=== PATIENT | female | born 1965 | race Two or more races ===

== ENCOUNTER 2020-05-30 12:27 | Outpatient (REF) | payer OTHER, SELFPAY ==
--- NOTE | 2020-05-30 | MM_ITS ---
EXAMINATION: MM SCREENING DIGITAL BREAST TOMOSYNTHESIS, BILATERAL CLINICAL INFORMATION: Screening. Asymptomatic. Status post right breast biopsy 2017 (focal ADH), subsequent excisional biopsy 07/21/2018 (flat epithelial atypia, not seen at examined margins). Exam today performed as a routine there are 2 screening. The lifetime risk of breast cancer based on the Tyrer-Cuzick Model is 6%. COMPARISON: Mammography: 07/21/2018 (needle localization), 04/27/2018, 04/16/2018, 09/16/2017, 10/17/2016 TECHNIQUE: Digital breast tomosynthesis is performed in both the craniocaudal and mediolateral oblique views along with computer-aided detection (CAD). Synthesized 2D images are generated from the tomosynthesis. FINDINGS: There are scattered areas of fibroglandular density (ACR BI-RADS breast composition Category b). There is minor scarring right breast upper outer quadrant consistent with the prior lumpectomy. Neither breast shows interval mass or developing density or suspicious architectural changes. No abnormal calcifications. The axilla are unremarkable. No significant changes. MM/MM tomosynthesis screening BI IMPRESSION: No mammographic evidence of malignancy. Benign postoperative changes right breast. ASSESSMENT: BI-RADS 2: Benign RECOMMENDATION: Routine annual mammography screening. This patient's information was entered into a reminder system with a target due date for their next mammogram.
== END 2020-05-30 12:28 | disposition home or self-care (01) ==
LOC: HO.MAMMO 12:27
PROVIDERS: PCP Internal Medicine; Visit Provider Internal Medicine
DX: Z12.31 Encounter for screening mammogram for malignant neoplasm of breast (principal)
CPT/HCPCS: 77063; 77067

== ENCOUNTER 2020-07-07 09:23 | Outpatient (REF) | payer OTHER, SELFPAY ==
[2020-07-07 09:53] LABS: Estimated Average Glucose 148 mg/dL; Hemoglobin A1c % 6.8 %
[2020-07-07 10:06] LABS: Alanine Aminotransferase 39 U/L (0-31); Albumin Level 4.2 g/dL (3.5-5.0); Alkaline Phosphatase 128 U/L (39-117); Anion Gap 17 (12-20); Aspartate Amino Transferase 25 U/L (5-31); Bilirubin Total 0.3 mg/dL (0.0-1.0); Blood Urea Nitrogen 18 mg/dL (9-16); Calcium 10.4 mg/dL (8.4-10.2); Carbon Dioxide 25 mmol/L (22-29); Chloride 100 mmol/L (96-108); Cholesterol 261 mg/dL; Estimated Glomerular Filt Rate > 60; Glucose Random 168 mg/dL (60-115); HDL Cholesterol 42 mg/dL; Phosphorus 3.6 mg/dL (2.7-4.5); Potassium 4.5 mmol/L (3.3-5.1); Sodium 137 mmol/L (135-145); Triglycerides 695 mg/dL
[2020-07-07 10:26] LABS: Vitamin D 25-OH Total 11.1 ng/mL (>30)
[2020-07-10 18:37] LABS: Calcium (PTHI) 10.6 mg/dL (8.6-10.4); PTHI 153 pg/mL (14-64)
== END 2020-07-07 09:24 | disposition home or self-care (01) ==
LOC: HO.LNP 09:23
PROVIDERS: Visit Provider Internal Medicine
DX: E03.8 Other specified hypothyroidism (principal); E11.9 Type 2 diabetes mellitus without complications; E78.2 Mixed hyperlipidemia; E83.52 Hypercalcemia
CPT/HCPCS: 80053; 80061; 82306; 83036; 83970; 84100

== ENCOUNTER 2020-11-09 07:32 | Outpatient (REF) | payer OTHER, SELFPAY ==
[2020-11-09 08:21] LABS: MANUAL DIFF FLAG NO
[2020-11-09 08:29] LABS: Basophils Percent Auto 0.6 % (0-2); Eosinophils Absolute Auto 0.2 X10*3/uL (0.0-0.4); Eosinophils Percent Auto 3.5 % (0-4); Imm Gran Abs Auto 0.02 X10*3/uL (0.00-0.03); Imm Gran Pct Auto 0.3 % (0.0-0.4); Lymphocytes Absolute Auto 2.8 X10*3/uL (1.2-4.9); Lymphocytes Percent Auto 42.7 % (20-40); Mean Corpuscular HGB Conc 33.3 g/dl (31.0-35.0); Mean Corpuscular Hemoglobin 29.4 pg (27.0-33.0); Mean Corpuscular Volume 88.1 fL (80-98); Mean Platelet Volume 11.9 fL (9.4-12.3); Monocytes Absolute Auto 0.5 X10*3/uL (0.1-1.2); Monocytes Percent Auto 8.1 % (2-11); Neutrophils Absolute Auto 2.9 X10*3/uL (2.0-8.3); Neutrophils Percent Auto 44.8 % (45-73); Platelet Count 250 X10*3/uL (160-400); Red Blood Count 4.77 X10*6/uL (4.20-5.50); Red Cell Distribution Width 12.8 % (11.0-16.0); White Blood Count 6.6 X10*3/uL (4.8-10.8)
[2020-11-09 08:34] LABS: Estimated Average Glucose 143 mg/dL; Hemoglobin A1c % 6.6 %
[2020-11-09 08:47] LABS: Alanine Aminotransferase 43 U/L (0-31); Alkaline Phosphatase 100 U/L (39-117); Anion Gap 12 (12-20); Aspartate Amino Transferase 29 U/L (5-31); Bilirubin Total 0.4 mg/dL (0.0-1.0); Blood Urea Nitrogen 18 mg/dL (9-16); Calcium 10.5 mg/dL (8.4-10.2); Carbon Dioxide 24 mmol/L (22-29); Chloride 104 mmol/L (96-108); Cholesterol 176 mg/dL; Estimated Glomerular Filt Rate > 60; Glucose Random 148 mg/dL (60-115); HDL Cholesterol 43 mg/dL; LDL Cholesterol Calculated 104 mg/dl; Potassium 4.1 mmol/L (3.3-5.1); Sodium 136 mmol/L (135-145); Total Protein 6.5 g/dL (6.5-8.0); Triglycerides 149 mg/dL
[2020-11-09 09:07] LABS: Thyroid Stimulating Hormone 1.46 uIU/mL (0.32-4.0)
[2020-11-09 09:12] LABS: Creatinine Urine 101.09 mg/dL; Microalbumin Urine < 5.0 mg/L
== END 2020-11-09 07:33 | disposition home or self-care (01) ==
LOC: HO.LAB 07:32
PROVIDERS: PCP Internal Medicine; Visit Provider Internal Medicine
DX: D50.9 Iron deficiency anemia, unspecified (principal); E03.9 Hypothyroidism, unspecified; E11.9 Type 2 diabetes mellitus without complications; E55.9 Vitamin D deficiency, unspecified; E78.1 Pure hyperglyceridemia; I10 Essential (primary) hypertension
CPT/HCPCS: 36415; 80053; 80061; 82043; 83036; 84443; 85025

== ENCOUNTER 2021-04-08 13:24 | Emergency (ER) | payer OTHER, SELFPAY ==
--- NOTE | ~2021-04-08 | XR_ITS ---
EXAMINATION: CHEST 2 VIEWS CLINICAL INFORMATION: cough . COMPARISON: 07/10/2018 chest x-ray. TECHNIQUE: PA and lateral views of the chest obtained. FINDINGS: The lungs are mildly hypoexpanded. There is patchy bilateral airspace disease seen more set the lung bases. This airspace disease is new from the prior study. Infectious etiology would be suspected. No significant effusion, edema, or pneumothorax. Cardiac and mediastinal silhouettes within normal limits for size. No acute bony abnormality. Degenerative changes in the spine. XR/XR chest 2V IMPRESSION: Patchy bilateral airspace disease new from the prior study. Infectious etiology suspected.
[2021-04-08 14:12] VITALS: BP 144/92; PULSE 87; RESP 16; TEMP 36; O2SAT 97; BMI 33.0
--- NOTE | 2021-04-08 14:44 | ED.GENADULT ---
HPI - General Adult General Chief complaint: General Medical Stated complaint: swollen hands and legs Time Seen by Provider: 04/08/21 14:21 Source: patient Mode of arrival: ambulatory Limitations: no limitations History of Present Illness HPI narrative: patient with swollen hands and feet. She was started on prednisone a few days ago for shortness of breath. No history of arthritis. Patient states that she has been on prednisone before without swelling. patient has DM, HTN, and high cholesterol. Patient was seen in urgent care. Sugars have been running at 130. Onset (ago): day(s) Severity: moderate Quality: other (swelling) Pain Consistency: constant Associated symptoms: shortness of breath Related Data Previous Rx's Medication Instructions Recorded levofloxacin 500 mg tablet 500 mg PO DAILY #7 tab 04/08/21 Allergies Allergy/AdvReac Type Severity Reaction Status Date / Time acetaminophen [Percocet] Allergy Unknown nausea and Verified 07/29/18 00:00 vomiting oxycodone [Percocet] Allergy Unknown nausea and Verified 07/29/18 00:00 vomiting Review of Systems Neurologic: Denies Sensory deficit (Neuro) [facility] Past Medical History Medical History Diabetes HTN (hypertension) Hypothyroid Social History Social History Alcohol intake: never Patient Tobacco Use Status: Never used Tobacco Smoked in Last 30 Days: No Use of substances other than those prescribed or required for medical reasons: No Advance Directives: No Advance Directives Information Provided: Yes Physical Exam Vital Signs: Vital Signs: Last Vital Signs Temp 98.6 F 04/08/21 17:17 Pulse 74 04/08/21 17:17 Resp 16 04/08/21 17:17 BP 120/7 L 04/08/21 17:17 Pulse Ox 96 04/08/21 17:17 Body Mass Index 33.0 Const: Other: well developed with cough. General: healthy appearing Nutritional Appearance: obese Orientation/consciousness: oriented to person and patient oriented x3 Limitations: no limitations HENMT: Head: Yes normal to inspection Ears: external ears normal General nose exam: Normal external nose present Mouth: Normal oral and palatal mucosa present and oropharynx normal Throat: Yes posterior oropharynx normal Eyes: General: appearance normal, both eyes and all related structures Neck: Other: supple Neck: Yes normal visual inspection Chest: Chest palpation & inspection: normal inspection of the chest Resp: Auscultation: clear to auscultation bilaterally Cardio: Jugular venous distension: no JVD Rate: regular rate Rhythm: regular rhythm Heart sounds: S1 normal heart sound present and S2 normal heart sound present GI: Inspection: Yes normal to inspection Palpation (GI): Soft to palpation, nontender and No hepatosplenomegaly present Auscultation: normal bowel sounds : General: Yes no CVA tenderness Back/Spine/Pelvis: Back: no CVA tenderness Skin: General skin exam: no rashes or lesions noted Neuro: General: oriented to person and patient oriented x3 Cranial nerves: Yes CN's II-XII intact bilaterally Motor exam (neuro): 5/5 motor strength present throughout Sensory Exam: No Sensory deficit (Neuro) Extrem: Other: Edema to hands not legs Psych: Appearance: grossly normal Course Reevaluation(s) Reevaluation #1: patient with patchy infiltrates will send COVID Time: 15:48 Reevaluation #2: COVID negative times 2. Will treat for atypical pneumonia with levaquin Time: 17:32 Medical Decision Making Lab Data Result diagrams: 04/08/21 15:30 04/08/21 15:30 Labs: Lab Results 04/08/21 04/08/21 04/08/21 Range/Units 15:30 15:30 15:30 WBC 8.5 (4.8-10.8) X10*3/uL RBC 5.00 (4.20-5.50) X10*6/uL Hgb 15.0 (12.0-16.0) g/dl Hct 43.5 (37.0-47.0) % MCV 87.0 (80.0-98.0) fL MCH 30.0 (27.0-33.0) pg MCHC 34.5 (31.0-35.0) g/dl RDW 12.9 (11.0-16.0) % Plt Count 256 (160-400) X10*3/uL MPV 10.8 (9.4-12.3) fL Immature Gran % (Auto) 0.6 H (0.0-0.4) % Neut % (Auto) 64.0 (45-73) % Lymph % (Auto) 24.1 (20-40) % [place] % (Auto) 7.1 (2-11) % Eos % (Auto) 3.5 (0-4) % Baso % (Auto) 0.7 (0-2) % Lymph # (Auto) 2.0 (1.2-4.9) X10*3/uL [place] # (Auto) 0.6 (0.1-1.2) X10*3/uL Eos # (Auto) 0.3 (0.0-0.4) X10*3/uL Baso # (Auto) 0.1 (0.0-0.2) X10*3/uL Abs Immat Gran (auto) 0.05 H (0.00-0.03) X10*3/uL Absolute Neuts (auto) 5.4 (2.0-8.3) x10*3/uL Absolute Nucleated RBC 0.000 (0.0-0.012) X10*3/uL Nucleated RBC % (auto) 0.0 (0.0-0.2) /100WBC ESR 11 (0-20) MM/HR Sodium 134 L (135-145) mmol/L Potassium 4.0 (3.3-5.1) mmol/L Chloride 103 (96-108) mmol/L Carbon Dioxide 23 (22-29) mmol/L Anion Gap 12 (12-20) BUN 12 (9-16) mg/dL Creatinine 0.69 (0.5-1.4) mg/dL Estim Creat Clear Calc 88.9 Estimated GFR > 60 Random Glucose 120 H (60-115) mg/dL Calcium 9.9 (8.4-10.2) mg/dL C-Reactive Protein 1.33 H (< or = 0.50) mg/dL Influenza Type A (PCR) (Negative) Influenza Type B (PCR) (Negative) RSV RNA Qual (PCR) (Negative) SARS-CoV-2 RNA (RT-PCR) (Negative) 04/08/21 Range/Units 16:37 WBC (4.8-10.8) X10*3/uL RBC (4.20-5.50) X10*6/uL Hgb (12.0-16.0) g/dl Hct (37.0-47.0) % MCV (80.0-98.0) fL MCH (27.0-33.0) pg MCHC (31.0-35.0) g/dl RDW (11.0-16.0) % Plt Count (160-400) X10*3/uL MPV (9.4-12.3) fL Immature Gran % (Auto) (0.0-0.4) % Neut % (Auto) (45-73) % Lymph % (Auto) (20-40) % [place] % (Auto) (2-11) % Eos % (Auto) (0-4) % Baso % (Auto) (0-2) % Lymph # (Auto) (1.2-4.9) X10*3/uL [place] # (Auto) (0.1-1.2) X10*3/uL Eos # (Auto) (0.0-0.4) X10*3/uL Baso # (Auto) (0.0-0.2) X10*3/uL Abs Immat Gran (auto) (0.00-0.03) X10*3/uL Absolute Neuts (auto) (2.0-8.3) x10*3/uL Absolute Nucleated RBC (0.0-0.012) X10*3/uL Nucleated RBC % (auto) (0.0-0.2) /100WBC ESR (0-20) MM/HR Sodium (135-145) mmol/L Potassium (3.3-5.1) mmol/L Chloride (96-108) mmol/L Carbon Dioxide (22-29) mmol/L Anion Gap (12-20) BUN (9-16) mg/dL Creatinine (0.5-1.4) mg/dL Estim Creat Clear Calc Estimated GFR Random Glucose (60-115) mg/dL Calcium (8.4-10.2) mg/dL C-Reactive Protein (< or = 0.50) mg/dL Influenza Type A (PCR) NEGATIVE (Negative) Influenza Type B (PCR) NEGATIVE (Negative) RSV RNA Qual (PCR) NEGATIVE (Negative) SARS-CoV-2 RNA (RT-PCR) NEGATIVE (Negative) Discharge Plan Discharge Clinical Impression: Atypical pneumonia Patient Disposition: Home, Self-Care Instructions: Pneumonia (ED) Prescriptions: New levofloxacin 500 mg tablet 500 mg PO DAILY Qty: 7 RF: 0 Referrals: Jocelyn Rivera MD [Primary Care Provider] - 1 week
[2021-04-08 15:35] VITALS: BP 121/86; PULSE 82; RESP 16; TEMP 37.2; O2SAT 95
[2021-04-08 15:37] LABS: Basophils Absolute Auto 0.1 X10*3/uL (0.0-0.2); Basophils Percent Auto 0.7 % (0-2); Eosinophils Absolute Auto 0.3 X10*3/uL (0.0-0.4); Eosinophils Percent Auto 3.5 % (0-4); Hematocrit 43.5 % (37.0-47.0); Imm Gran Abs Auto 0.05 X10*3/uL (0.00-0.03); Imm Gran Pct Auto 0.6 % (0.0-0.4); Lymphocytes Percent Auto 24.1 % (20-40); MANUAL DIFF FLAG NO; Mean Corpuscular HGB Conc 34.5 g/dl (31.0-35.0); Mean Platelet Volume 10.8 fL (9.4-12.3); Monocytes Absolute Auto 0.6 X10*3/uL (0.1-1.2); Monocytes Percent Auto 7.1 % (2-11); Neutrophils Absolute Auto 5.4 x10*3/uL (2.0-8.3); Platelet Count 256 X10*3/uL (160-400); Red Cell Distribution Width 12.9 % (11.0-16.0); White Blood Count 8.5 X10*3/uL (4.8-10.8)
[2021-04-08 15:52] LABS: Anion Gap 12 (12-20); Blood Urea Nitrogen 12 mg/dL (9-16); C Reactive Protein 1.33 mg/dL (< or = 0.50); Calcium 9.9 mg/dL (8.4-10.2); Carbon Dioxide 23 mmol/L (22-29); Chloride 103 mmol/L (96-108); Creatinine Clr Calc Pharmacy 88.9; Estimated Glomerular Filt Rate > 60; Glucose Random 120 mg/dL (60-115); Sodium 134 mmol/L (135-145)
[2021-04-08 16:53] LABS: Erythrocyte Sedimentation Rate 11 MM/HR (0-20)
[2021-04-08 17:17] VITALS: BP 120/7; PULSE 74; RESP 16; TEMP 37; O2SAT 96
[2021-04-08 17:20] LABS: Influenza A PCR NEGATIVE (Negative); Influenza B PCR NEGATIVE (Negative); Resp Syncy Virus RNA Qual PCR NEGATIVE (Negative); SARS COV2 PCR INHOUSE NEGATIVE (Negative)
[2021-04-08] MEDS: levoFLOXacin 500 MG TABLET PO (17:42)
== END 2021-04-08 17:47 | disposition home or self-care (01) ==
PROVIDERS: Emergency Provider Emergency Medicine; PCP Internal Medicine
DX: J18.9 Pneumonia, unspecified organism (principal); E11.9 Type 2 diabetes mellitus without complications; I10 Essential (primary) hypertension; E78.5 Hyperlipidemia, unspecified; Z20.822 Contact with and (suspected) exposure to COVID-19
CPT/HCPCS: 0241U; 36415; 71046; 80048; 85025; 85652; 86140; 99283; 99284

== ENCOUNTER 2021-04-24 14:06 | Outpatient (REF) | payer OTHER, SELFPAY ==
--- NOTE | ~2021-04-24 | XR_ITS ---
EXAMINATION: XR CHEST CLINICAL INFORMATION: Follow-up pneumonia COMPARISON: Previous chest x-rays most recent 04/08/2021 TECHNIQUE: 2 views of the chest were obtained. FINDINGS: The cardiac and mediastinal contours are normal. The lungs volumes are low. There is still patchy bilateral airspace disease, left greater than right, probably representing pneumonia. This is similar to 04/08/2021 exam. There is no pleural effusion or pneumothorax. There are degenerative changes of the spine. XR/XR chest 2V IMPRESSION: No change in bilateral airspace disease from most recent exam 04/08/2021, left greater than right, probably representing pneumonia.
[2021-04-24 14:34] LABS: MANUAL DIFF FLAG NO
[2021-04-24 15:16] LABS: Basophils Absolute Auto 0.1 X10*3/uL (0.0-0.2); Basophils Percent Auto 0.6 % (0-2); Eosinophils Absolute Auto 0.4 X10*3/uL (0.0-0.4); Eosinophils Percent Auto 5.5 % (0-4); Hematocrit 39.9 % (37.0-47.0); Hemoglobin 13.8 g/dl (12.0-16.0); Imm Gran Abs Auto 0.03 X10*3/uL (0.00-0.03); Imm Gran Pct Auto 0.4 % (0.0-0.4); Lymphocytes Absolute Auto 2.2 X10*3/uL (1.2-4.9); Lymphocytes Percent Auto 28.3 % (20-40); Mean Corpuscular HGB Conc 34.6 g/dl (31.0-35.0); Mean Corpuscular Hemoglobin 29.4 pg (27.0-33.0); Mean Corpuscular Volume 85.1 fL (80.0-98.0); Mean Platelet Volume 11.8 fL (9.4-12.3); Monocytes Absolute Auto 0.8 X10*3/uL (0.1-1.2); Monocytes Percent Auto 9.6 % (2-11); Neutrophils Absolute Auto 4.4 x10*3/uL (2.0-8.3); Neutrophils Percent Auto 55.6 % (45-73); Platelet Count 276 X10*3/uL (160-400); Red Blood Count 4.69 X10*6/uL (4.20-5.50); Red Cell Distribution Width 12.7 % (11.0-16.0); White Blood Count 7.8 X10*3/uL (4.8-10.8)
[2021-04-24 15:28] LABS: Estimated Average Glucose 146 mg/dL; Hemoglobin A1c % 6.7 %
[2021-04-24 15:42] LABS: Alanine Aminotransferase 23 U/L (0-31); Albumin Level 3.9 g/dL (3.5-5.0); Alkaline Phosphatase 103 U/L (39-117); Anion Gap 14 (12-20); Aspartate Amino Transferase 22 U/L (5-31); Bilirubin Total 0.2 mg/dL (0.0-1.0); Blood Urea Nitrogen 16 mg/dL (9-16); Calcium 10.7 mg/dL (8.4-10.2); Carbon Dioxide 24 mmol/L (22-29); Chloride 103 mmol/L (96-108); Cholesterol 292 mg/dL; Estimated Glomerular Filt Rate > 60; Glucose Random 100 mg/dL (60-115); HDL Cholesterol 38 mg/dL; Potassium 4.5 mmol/L (3.3-5.1); Sodium 136 mmol/L (135-145); Total Protein 6.7 g/dL (6.5-8.0); Triglycerides 626 mg/dL
== END 2021-04-24 14:07 | disposition home or self-care (01) ==
LOC: HO.LAB 14:06
PROVIDERS: PCP Internal Medicine; Visit Provider Internal Medicine
DX: Z00.00 Encounter for general adult medical examination without abnormal findings (principal); J18.9 Pneumonia, unspecified organism; J45.909 Unspecified asthma, uncomplicated; E78.00 Pure hypercholesterolemia, unspecified; E11.9 Type 2 diabetes mellitus without complications; E03.9 Hypothyroidism, unspecified; D50.8 Other iron deficiency anemias
CPT/HCPCS: 36415; 71046; 80053; 80061; 83036; 85025

== ENCOUNTER 2021-05-24 08:26 | Outpatient (REF) | payer OTHER, SELFPAY ==
--- NOTE | 2021-05-24 08:29 | EMG_ITS ---
Bilateral median and ulnar motor and sensory studies were performed. Bilateral radial sensory studies were performed and paraspinal muscles were tested. IMPRESSION: 1. Moderately severe bilateral median neuropathy across carpal tunnel. 2. Mild bilateral ulnar neuropathy across cubital tunnel. MD ED Momin/BRET / [id number]
== END 2021-05-24 08:27 | disposition home or self-care (01) ==
LOC: HO.NEURO 08:26
PROVIDERS: Visit Provider Internal Medicine
DX: G56.13 Other lesions of median nerve, bilateral upper limbs (principal); G56.23 Lesion of ulnar nerve, bilateral upper limbs
CPT/HCPCS: 95886; 95911

== ENCOUNTER 2021-05-24 09:06 | Inpatient (IN) | payer OTHER, SELFPAY ==
--- NOTE | ~2021-05-24 | XR_ITS ---
EXAMINATION: XR CHEST CLINICAL INFORMATION: Shortness of breath, cough, recent airspace disease. COMPARISON: Chest radiographs 04/24/2021, 04/08/2021, 07/10/2018 TECHNIQUE: 2 views of the chest were obtained. FINDINGS: There are bilateral streaky airspace opacities and subtle groundglass attenuation mid and lower zones similar to recent studies 04/24/2021 and 04/08/2021. No interval confluent airspace consolidation or effusion. Lung apices are clear. The heart is normal in size. The vascularity is normal. No acute bony abnormality XR/XR chest 2V IMPRESSION: Bilateral streaky and subtle groundglass airspace opacities mid and lower zones similar to recent chest radiographs 04/24/2021 and 04/08/2021. No interval fluid airspace consolidation or effusion.
--- NOTE | ~2021-05-24 | XR_ITS ---
EXAMINATION: XR CHEST CLINICAL INFORMATION: Hypoxia COMPARISON: May 24, 2021 TECHNIQUE: 2 views of the chest were obtained. FINDINGS: There is no significant change in bilateral regions of patchy lung disease. Heart normal size. No evidence of pulmonary edema. No pneumothorax or pleural effusion. XR/XR chest 2V IMPRESSION: Stable bilateral regions of patchy parenchymal disease.
--- NOTE | ~2021-05-24 | CT_ITS ---
EXAMINATION: CT ANGIOGRAM OF THE CHEST WITH AND WITHOUT CONTRAST (CT PULMONARY ANGIOGRAM FOR PE) CLINICAL INFORMATION: Reason for Exam SOB, severe cough, pre-syncope COMPARISON: Chest radiographs 05/24/2021, 04/24/2021, 04/08/2021, 07/10/2018. TECHNIQUE: Prior to contrast administration, noncontrast localization images were obtained. Subsequently, multidetector volumetric imaging was performed from the thoracic inlet to below the diaphragms following the administration of 65 mL Omnipaque 350 intravenous contrast. Sagittal, coronal, and MIP oblique sagittal reformatted images were obtained on the CT workstation, uploaded to PACS, and reviewed. This CT examination was performed using dose optimization techniques as appropriate, variously including the following: *Automated exposure control *Adjustment of mA and/or kV according to patient size (this includes techniques or standardized protocols for targeted exams where dose is matched to indication/reason for exam; i.e. extremities or head) *Use of iterative reconstruction technique Total exam dose-length product 378 mGy-cm FINDINGS: QUALITY OF STUDY/CONTRAST BOLUS: Satisfactory. PULMONARY ARTERIES: No central or segmental pulmonary emboli. THORACIC AORTA: No aneurysm or dissection. LUNG: The central airways are clear. There is no endobronchial lesion or bronchiectasis. There is accentuated peripheral interstitial markings greater mid and lower zones with associated scattered geographic groundglass opacities predominantly subpleural peripheral. There is no lobar segmental airspace consolidation or mass. There is some small confluent opacity central left upper lobe and linear scarring or disc atelectasis anterior lateral right upper lobe. PLEURA: No pleural effusion or pneumothorax. MEDIASTINUM: Normal heart size. No pericardial effusion. No evidence of septal bowing or right heart strain. No bulky mediastinal or hilar adenopathy. There is a right subcarinal node measuring 0.8 cm and a prevascular left mediastinal node 0.5 cm. CHEST WALL/AXILLA: No axillary or internal mammary lymphadenopathy. OSSEOUS STRUCTURES: No acute or suspicious osseous abnormality. UPPER ABDOMEN: Unremarkable. No reflux of contrast into the hepatic veins to suggest elevated right heart pressures. CT/CT angio chest PE protocol IMPRESSION: 1. No pulmonary embolism. No thoracic aortic dissection. 2. Accentuated peripheral interstitial markings greater mid and lower zones with associated scattered nonspecific geographic groundglass opacities, greatest subpleural peripheral regions. Differential considerations include infectious inflammatory including atypical/viral pneumonia. 3. No pneumothorax, pleural thickening, or effusion. VTE: negative
[2021-05-24 09:15] VITALS: BP 145/79; PULSE 83; RESP 19; TEMP 36.6; O2SAT 95; BMI 32.1
--- NOTE | 2021-05-24 09:28 | ECG_ITS ---
Test Reason : UPPER RESPIRATORY Blood Pressure : / mmHG Vent. Rate : 077 BPM Atrial Rate : 077 BPM P-R Int : 144 ms QRS Dur : 090 ms QT Int : 378 ms P-R-T Axes : 039 -04 027 degrees QTc Int : 427 ms Normal sinus rhythm Minimal voltage criteria for LVH, may be normal variant ( R in aVL ) Abnormal ECG When compared with ECG of 05-JUN-2018 08:36, No significant changes seen Referred By: Rita Connelly Electronically Signed By:JUSTIN WILEY
--- NOTE | 2021-05-24 09:36 | ED.SOB ---
HPI - SOB/Dyspnea General Chief Complaint: Upper Respiratory Symptoms Stated Complaint: diff breathing SOB Time Seen by Provider: 05/24/21 09:28 Source: patient Mode of arrival: ambulatory Limitations: no limitations History of Present Illness HPI Narrative: 55 y/o female with history of diabetes, HTN, HLD who presents to the ER with ongoing shortness of breath and coughing episodes since March. She has been seen in multiple urgent care offices as well as the emergency department for this. She was treated with 3 courses of prednisone, Tessalon and antibiotics with no improvement. She reports ongoing shortness of breath with exertion as well as coughing fits that are so severe it causes her to vomit and feel like she is going to pass out. She has no associated chest pain or fevers. She is a nonsmoker with no history of asthma or COPD. She reports she gets ?winter asthma? and has had history of bronchitis in the past but never this bad. She also reports that back in April she was having significant joint swelling in her hands and knees. No real improvement with steroids. She is seeing a utility specialist for this but does not know the results of her workup. MD elicited complaint: shortness of breath and cough Onset (ago): month(s) Context: occurred during exertion Timing: intermittent Severity: severe Exacerbating factors: exertion and coughing Relieving factors: rest and other (Improves after vomiting episode) Associated symptoms: pain with inspiration Treatment prior to arrival: none Related Data Home oxygen amount: none Home Medications Medication Instructions Recorded Confirmed albuterol sulfate 90 mcg/actuation 2 inh INHALATION Q4H PRN 05/24/21 05/24/21 breath activated powder inhaler atorvastatin 40 mg tablet 1 tab PO BEDTIME 05/24/21 05/24/21 budesonide-formoterol HFA 160 1 puff PO BID 05/24/21 05/24/21 mcg-4.5 mcg/actuation aerosol inhaler (Symbicort) cholecalciferol (vitamin D3) 1,250 1 cap PO VENEGAS 05/24/21 05/24/21 mcg (50,000 unit) capsule cyanocobalamin (vitamin B-12) 1,000 mcg SUBLINGUAL DAILY 05/24/21 05/24/21 1,000 mcg sublingual lozenge empagliflozin 25 mg tablet 1 tab PO DAILY 05/24/21 05/24/21 (Jardiance) fenofibrate 160 mg tablet 1 tab PO DAILY 05/24/21 05/24/21 levothyroxine 50 mcg tablet 50 mcg PO DAILY@0600 05/24/21 05/24/21 metformin 1,000 mg tablet 1 tab PO BID 05/24/21 05/24/21 olmesartan 40 1 tab PO DAILY 05/24/21 05/24/21 mg-hydrochlorothiazide 25 mg tablet Allergies Allergy/AdvReac Type Severity Reaction Status Date / Time acetaminophen [Percocet] Allergy Unknown nausea and Verified 07/29/18 00:00 vomiting oxycodone [Percocet] Allergy Unknown nausea and Verified 07/29/18 00:00 vomiting Review of Systems Review of Systems: Constitutional: No Fever, No Chills ENT/Mouth: No sore throat, No Rhinorrhea, No Swallowing Difficulty Eyes: No Eye Pain, No Swelling, No Redness Cardiovascular: + Chest Pain, + SOB, No Orthopnea, No Edema Respiratory: + Cough, No Sputum, No Wheezing,+ dyspnea Gastrointestinal: No Nausea, + Vomiting, No Diarrhea, No abdominal Pain Genitourinary: No Dysuria, No Urinary Frequency, No Hematuria Musculoskeletal: No joint pain, No Myalgias Skin: No Skin Lesions, No rash Neuro: No Weakness, No Numbness, + Dizziness, No Headache Psych: + Anxiety/Panic, No Depression Heme/Lymph: No Bruising, No Lymphadenopathy Endocrine: No Polyuria, No Polydipsia [facility] Past Medical History Medical History Diabetes HTN (hypertension) Hypothyroid Social History Social History Alcohol intake: never Patient Tobacco Use Status: Never used Tobacco Advance Directives: No Advance Directives Information Provided: No Patient : No Physical Exam Vital Signs: Vital Signs: Last Vital Signs Temp 98.7 F 05/24/21 10:05 Pulse 73 05/24/21 10:05 Resp 16 05/24/21 10:05 BP 123/84 05/24/21 10:05 Pulse Ox 89 L 05/24/21 12:54 BMI result Body Mass Index 32.1 Appearance: Alert. Oriented X3. No acute distress. Eyes: Pupils equal, round and reactive to light. ENT: Pharynx normal. Neck: Normal inspection. Neck supple. CVS: Normal heart rate and rhythm. Pulses normal. Respiratory: No respiratory distress. Breath sounds difficult to assess with coughing episode with every deep inspiration. Inspiratory breath sounds are normal with inability to assess extra [place] breath sounds due to coughing. Cough is dry Abdomen: Soft and nontender. +BS x4 Skin: Skin warm and dry. Normal skin color. Normal skin turgor. No rashes. Extremities: No lower extremity edema. No calf tenderness Neuro: Oriented X 3. No motor deficit. No sensory deficit. Course Course Course Narrative: 55-year-old female presenting with ongoing shortness of breath and coughing episodes since March. She has had 2 previous abnormal chest x-rays showing bilateral streaky and subtle ground-glass opacities in the mid and lower lung zones back in April. Chest x-ray findings today are similar. She is not hypoxic or in any respiratory distress however she does have a significant dry cough that caused her be very short of breath at the time. She reports feelings presyncopal when she is coughing. Concern for possible PE, chest x-ray findings are concerning for possible pneumonitis. Will get CTA to further evaluate. Reevaluation(s) Reevaluation #1: Lab workup shows no leukocytosis. CBC is normal. Chemistry showing a calcium of 11.2. CRP very mildly elevated 1.07. Viral PCR is negative. Saturations remain 95 98% on room air at rest. Patient was ambulated around the emergency department and she dropped her oxygen saturations to 89% during most of the walk with a dip of as low as 84-85% but quickly recovered. CTA is showing no PE - extension weighted peripheral interstitial markings greater mid and lower zones with associated scatteed nonspecific geographic gone glass opacities greatest subpleural peripheral regions. Differential considerations include infectious inflammatory including atypical/viral pneumonia. Findings and case were discussed with Pulmonology Dr. Randall. At this time is recommending inpatient treatment with IV pulse steroids concern for possible eosinophilic pneumonitis. Will discuss patient with hospitalist and plan for admission. Patient agreeable with plan. Consultations Consultation #1: Pulmonology - Dr. Randall MDM - SOB/Dyspnea Medical Records Attestation: I reviewed the patient's medical records. Lab Data Attestation: I reviewed the patient's lab results. Result diagrams: 05/24/21 10:04 05/24/21 10:04 Labs: Lab Results 05/24/21 05/24/21 05/24/21 Range/Units 09:53 10:04 10:04 WBC 8.7 (4.8-10.8) X10*3/uL RBC 5.00 (4.20-5.50) X10*6/uL Hgb 14.7 (12.0-16.0) g/dl Hct 42.7 (37.0-47.0) % MCV 85.4 (80.0-98.0) fL MCH 29.4 (27.0-33.0) pg MCHC 34.4 (31.0-35.0) g/dl RDW 12.6 (11.0-16.0) % Plt Count 279 (160-400) X10*3/uL MPV 11.2 (9.4-12.3) fL Immature Gran % (Auto) 0.2 (0.0-0.4) % Neut % (Auto) 72.8 (45-73) % Lymph % (Auto) 18.8 L (20-40) % [place] % (Auto) 5.4 (2-11) % Eos % (Auto) 2.3 (0-4) % Baso % (Auto) 0.5 (0-2) % Lymph # (Auto) 1.6 (1.2-4.9) X10*3/uL [place] # (Auto) 0.5 (0.1-1.2) X10*3/uL Eos # (Auto) 0.2 (0.0-0.4) X10*3/uL Baso # (Auto) 0.0 (0.0-0.2) X10*3/uL Abs Immat Gran (auto) 0.02 (0.00-0.03) X10*3/uL Absolute Neuts (auto) 6.3 (2.0-8.3) x10*3/uL Absolute Nucleated RBC 0.000 (0.0-0.012) X10*3/uL Nucleated RBC % (auto) 0.0 (0.0-0.2) /100WBC ESR (0-20) MM/HR Sodium 138 (135-145) mmol/L Potassium 4.7 (3.3-5.1) mmol/L Chloride 104 (96-108) mmol/L Carbon Dioxide 27 (22-29) mmol/L Anion Gap 12 (12-20) BUN 15 (9-16) mg/dL Creatinine 0.78 (0.5-1.4) mg/dL Estim Creat Clear Calc 77.4 Estimated GFR > 60 Random Glucose 138 H (60-115) mg/dL Calcium 11.2 H (8.4-10.2) mg/dL Magnesium 1.7 (1.6-2.6) mg/dL Total Bilirubin 0.5 (0.0-1.0) mg/dL Direct Bilirubin < 0.2 (0.0-0.5) mg/dL AST 23 (5-31) U/L ALT 23 (0-31) U/L Alkaline Phosphatase 104 (39-117) U/L Troponin I High Sens (<3.5-17.0) ng/L C-Reactive Protein 1.07 H (< or = 0.50) mg/dL B-Natriuretic Peptide (<100) pg/mL Total Protein 7.1 (6.5-8.0) g/dL Albumin 4.0 (3.5-5.0) g/dL Procalcitonin ng/mL Urine Color Urine Appearance Urine pH (5.0-8.0) Ur Specific [place] (1.005-1.025) Urine Protein (NEG-TRACE) MG/DL Urine Glucose (UA) (NEG) MG/DL Urine Ketones (NEG) MG/DL Urine Blood (NEG) Urine Nitrite (NEG) Ur Leukocyte Esterase (NEG) Urine RBC (0) /HPF Urine WBC (0-4) /HPF Ur Squamous Epith Cells /LPF Urine Bacteria /LPF Influenza Type A (PCR) NEGATIVE (Negative) Influenza Type B (PCR) NEGATIVE (Negative) RSV RNA Qual (PCR) NEGATIVE (Negative) SARS-CoV-2 RNA (RT-PCR) NEGATIVE (Negative) 05/24/21 05/24/21 05/24/21 Range/Units 10:04 10:04 10:04 WBC (4.8-10.8) X10*3/uL RBC (4.20-5.50) X10*6/uL Hgb (12.0-16.0) g/dl Hct (37.0-47.0) % MCV (80.0-98.0) fL MCH (27.0-33.0) pg MCHC (31.0-35.0) g/dl RDW (11.0-16.0) % Plt Count (160-400) X10*3/uL MPV (9.4-12.3) fL Immature Gran % (Auto) (0.0-0.4) % Neut % (Auto) (45-73) % Lymph % (Auto) (20-40) % [place] % (Auto) (2-11) % Eos % (Auto) (0-4) % Baso % (Auto) (0-2) % Lymph # (Auto) (1.2-4.9) X10*3/uL [place] # (Auto) (0.1-1.2) X10*3/uL Eos # (Auto) (0.0-0.4) X10*3/uL Baso # (Auto) (0.0-0.2) X10*3/uL Abs Immat Gran (auto) (0.00-0.03) X10*3/uL Absolute Neuts (auto) (2.0-8.3) x10*3/uL Absolute Nucleated RBC (0.0-0.012) X10*3/uL Nucleated RBC % (auto) (0.0-0.2) /100WBC ESR 12 (0-20) MM/HR Sodium (135-145) mmol/L Potassium (3.3-5.1) mmol/L Chloride (96-108) mmol/L Carbon Dioxide (22-29) mmol/L Anion Gap (12-20) BUN (9-16) mg/dL Creatinine (0.5-1.4) mg/dL Estim Creat Clear Calc Estimated GFR Random Glucose (60-115) mg/dL Calcium (8.4-10.2) mg/dL Magnesium (1.6-2.6) mg/dL Total Bilirubin (0.0-1.0) mg/dL Direct Bilirubin (0.0-0.5) mg/dL AST (5-31) U/L ALT (0-31) U/L Alkaline Phosphatase (39-117) U/L Troponin I High Sens 4.6 (<3.5-17.0) ng/L C-Reactive Protein (< or = 0.50) mg/dL B-Natriuretic Peptide 31 (<100) pg/mL Total Protein (6.5-8.0) g/dL Albumin (3.5-5.0) g/dL Procalcitonin 0.10 ng/mL Urine Color Urine Appearance Urine pH (5.0-8.0) Ur Specific [place] (1.005-1.025) Urine Protein (NEG-TRACE) MG/DL Urine Glucose (UA) (NEG) MG/DL Urine Ketones (NEG) MG/DL Urine Blood (NEG) Urine Nitrite (NEG) Ur Leukocyte Esterase (NEG) Urine RBC (0) /HPF Urine WBC (0-4) /HPF Ur Squamous Epith Cells /LPF Urine Bacteria /LPF Influenza Type A (PCR) (Negative) Influenza Type B (PCR) (Negative) RSV RNA Qual (PCR) (Negative) SARS-CoV-2 RNA (RT-PCR) (Negative) 05/24/21 Range/Units 12:57 WBC (4.8-10.8) X10*3/uL RBC (4.20-5.50) X10*6/uL Hgb (12.0-16.0) g/dl Hct (37.0-47.0) % MCV (80.0-98.0) fL MCH (27.0-33.0) pg MCHC (31.0-35.0) g/dl RDW (11.0-16.0) % Plt Count (160-400) X10*3/uL MPV (9.4-12.3) fL Immature Gran % (Auto) (0.0-0.4) % Neut % (Auto) (45-73) % Lymph % (Auto) (20-40) % [place] % (Auto) (2-11) % Eos % (Auto) (0-4) % Baso % (Auto) (0-2) % Lymph # (Auto) (1.2-4.9) X10*3/uL [place] # (Auto) (0.1-1.2) X10*3/uL Eos # (Auto) (0.0-0.4) X10*3/uL Baso # (Auto) (0.0-0.2) X10*3/uL Abs Immat Gran (auto) (0.00-0.03) X10*3/uL Absolute Neuts (auto) (2.0-8.3) x10*3/uL Absolute Nucleated RBC (0.0-0.012) X10*3/uL Nucleated RBC % (auto) (0.0-0.2) /100WBC ESR (0-20) MM/HR Sodium (135-145) mmol/L Potassium (3.3-5.1) mmol/L Chloride (96-108) mmol/L Carbon Dioxide (22-29) mmol/L Anion Gap (12-20) BUN (9-16) mg/dL Creatinine (0.5-1.4) mg/dL Estim Creat Clear Calc Estimated GFR Random Glucose (60-115) mg/dL Calcium (8.4-10.2) mg/dL Magnesium (1.6-2.6) mg/dL Total Bilirubin (0.0-1.0) mg/dL Direct Bilirubin (0.0-0.5) mg/dL AST (5-31) U/L ALT (0-31) U/L Alkaline Phosphatase (39-117) U/L Troponin I High Sens (<3.5-17.0) ng/L C-Reactive Protein (< or = 0.50) mg/dL B-Natriuretic Peptide (<100) pg/mL Total Protein (6.5-8.0) g/dL Albumin (3.5-5.0) g/dL Procalcitonin ng/mL Urine Color YELLOW Urine Appearance CLEAR Urine pH 7.0 (5.0-8.0) Ur Specific [place] 1.010 (1.005-1.025) Urine Protein NEG (NEG-TRACE) MG/DL Urine Glucose (UA) >=1000 H (NEG) MG/DL Urine Ketones NEG (NEG) MG/DL Urine Blood NEG (NEG) Urine Nitrite NEG (NEG) Ur Leukocyte Esterase NEG (NEG) Urine RBC 0 (0) /HPF Urine WBC 0 (0-4) /HPF Ur Squamous Epith Cells 2+ /LPF Urine Bacteria TRACE /LPF Influenza Type A (PCR) (Negative) Influenza Type B (PCR) (Negative) RSV RNA Qual (PCR) (Negative) SARS-CoV-2 RNA (RT-PCR) (Negative) ECG Data Attestation: I personally reviewed and interpreted this ECG as follows: ECG interpretation date: 05/24/21 Prior ECG tracings: available for review Interpretation: normal sinus rhythm, HR 77 bpm, LVH, nonspecific T wave abnormality, normal OK interval. No ST segment elevations or depressions Critical Care Time Critical Care Time Critical Care Time: Yes Total Critical Care Time: 42 Attestation: I have personally provided critical care time exclusive of time spent on separately billable procedures. Time includes review of lab data, radiology results, discussion with consultants/hospitalists, and monitoring for potential decompensation. Intervention performed as documented. Discharge Plan Discharge Clinical Impression: Pneumonitis Patient Disposition: Admitted As Inpatient
[2021-05-24 10:05] VITALS: BP 123/84; PULSE 73; RESP 16; TEMP 37.1; O2SAT 95
[2021-05-24 10:11] LABS: MANUAL DIFF FLAG NO
[2021-05-24 10:20] LABS: Basophils Percent Auto 0.5 % (0-2); Eosinophils Absolute Auto 0.2 X10*3/uL (0.0-0.4); Eosinophils Percent Auto 2.3 % (0-4); Hematocrit 42.7 % (37.0-47.0); Hemoglobin 14.7 g/dl (12.0-16.0); Imm Gran Abs Auto 0.02 X10*3/uL (0.00-0.03); Imm Gran Pct Auto 0.2 % (0.0-0.4); Lymphocytes Absolute Auto 1.6 X10*3/uL (1.2-4.9); Lymphocytes Percent Auto 18.8 % (20-40); Mean Corpuscular HGB Conc 34.4 g/dl (31.0-35.0); Mean Corpuscular Hemoglobin 29.4 pg (27.0-33.0); Mean Corpuscular Volume 85.4 fL (80.0-98.0); Mean Platelet Volume 11.2 fL (9.4-12.3); Monocytes Absolute Auto 0.5 X10*3/uL (0.1-1.2); Monocytes Percent Auto 5.4 % (2-11); Neutrophils Absolute Auto 6.3 x10*3/uL (2.0-8.3); Neutrophils Percent Auto 72.8 % (45-73); Platelet Count 279 X10*3/uL (160-400); Red Cell Distribution Width 12.6 % (11.0-16.0); White Blood Count 8.7 X10*3/uL (4.8-10.8)
[2021-05-24 10:41] LABS: B Type Natriuretic Peptide 31 pg/mL (<100); Troponin-I High Sensitivity 4.6 ng/L (<3.5-17.0)
[2021-05-24 10:44] LABS: Alanine Aminotransferase 23 U/L (0-31); Alkaline Phosphatase 104 U/L (39-117); Anion Gap 12 (12-20); Aspartate Amino Transferase 23 U/L (5-31); Bilirubin Total 0.5 mg/dL (0.0-1.0); Blood Urea Nitrogen 15 mg/dL (9-16); Carbon Dioxide 27 mmol/L (22-29); Chloride 104 mmol/L (96-108); Creatinine Clr Calc Pharmacy 77.4; Estimated Glomerular Filt Rate > 60; Glucose Random 138 mg/dL (60-115); Magnesium 1.7 mg/dL (1.6-2.6); Potassium 4.7 mmol/L (3.3-5.1); Sodium 138 mmol/L (135-145); Total Protein 7.1 g/dL (6.5-8.0)
[2021-05-24 10:51] LABS: Influenza A PCR NEGATIVE (Negative); Influenza B PCR NEGATIVE (Negative); Resp Syncy Virus RNA Qual PCR NEGATIVE (Negative); SARS COV2 PCR INHOUSE NEGATIVE (Negative)
[2021-05-24 10:57] LABS: Bilirubin Direct < 0.2 mg/dL (0.0-0.5); Calcium 11.2 mg/dL (8.4-10.2)
[2021-05-24 11:34] LABS: C Reactive Protein 1.07 mg/dL (< or = 0.50)
[2021-05-24] MEDS: iohexoL 350 MG/ML 100 ML INFUS..BTL 65 ML IV (11:41)
[2021-05-24 12:25] LABS: Erythrocyte Sedimentation Rate 12 MM/HR (0-20)
[2021-05-24 12:54] VITALS: O2SAT 89
[2021-05-24 13:20] LABS: Appearance Urine CLEAR; Color Urine YELLOW; Glucose Urine UA >=1000 MG/DL (NEG); Leukocyte Esterase Urine NEG (NEG); Nitrite Urine NEG (NEG); Urine Blood NEG (NEG); Urine Ketones NEG (NEG); Urine Protein NEG (NEG-TRACE)
[2021-05-24 13:31] LABS: Bacteria Urine TRACE /LPF; RBC Urine 0 /HPF (0); Squamous Epithelial Cell Urine 2+ /LPF; WBC Urine 0 /HPF (0-4)
--- NOTE | 2021-05-24 13:33 | PHA.MEDREC ---
Pharmacy Consult ? Medication Reconciliation Pharmacy has completed the medication reconciliation. There are no remarkable issues for provider's attention. Allyson Daniels, EdelD
--- NOTE | 2021-05-24 14:37 | P.HPHOSP_ITS ---
History of Present Illness Date of Service: 05/24/21 Chief Complaint: SOB 55 y/o female with history of diabetes, HTN, HLD who presents to the ER with ongoing shortness of breath and coughing episodes since March.? She has been seen in multiple urgent care offices as well as the emergency department for this.? She was treated with 3 courses of prednisone, Tessalon and antibiotics with no improvement. She reports ongoing shortness of breath with exertion as well as coughing fits that are so severe it causes her to vomit and feel like she is going to pass out.? She has no associated chest pain or fevers.? She is a nonsmoker with no history of asthma or COPD.? She reports she gets ?winter asthma? and has had history of bronchitis in the past but never this bad.? She also reports that back in April she was having significant joint swelling in her hands and knees Review of Systems Review of Systems: denies chest pain Admits to exertional shortness of breath and productive cough Denies nausea vomiting diarrhea PMFSH Medical History (Updated 05/24/21 @ 14:42 by Stuart Cheng DO) Diabetes HTN (hypertension) Hypothyroid Social History Alcohol intake: never Patient Tobacco Use Status: Never used Tobacco Advance Directives: No Advance Directives Information Provided: No Patient : No Meds Allergies Allergy/AdvReac Type Severity Reaction Status Date / Time acetaminophen [Percocet] Allergy Unknown nausea and Verified 07/29/18 00:00 vomiting oxycodone [Percocet] Allergy Unknown nausea and Verified 07/29/18 00:00 vomiting Active Medications: Current Medications Acetaminophen (Acetaminophen 325 Mg Tablet) 650 mg PO Q6H PRN PRN Reason: Pain, Mild (Pain Scale 1-3) Albuterol Sulfate (Albuterol Sulfate 90 Mcg 8 Gm Inhaler) 2 puff INHALE Q4H PRN PRN Reason: Wheezing Atorvastatin Calcium (Atorvastatin Calcium 40 Mg Tablet) 40 mg PO BEDTIME [facility] Enoxaparin Sodium (Enoxaparin Sodium 40 Mg/0.4 Ml Syringe) 40 mg SUBCUT Q24H [facility] Fenofibrate (Fenofibrate 160 Mg Tablet) 160 mg PO DAILY [facility] Levothyroxine Sodium (Levothyroxine Sodium 50 Mcg Tablet) 50 mcg PO DAILY@0600 [facility] Metformin HCl (Metformin Hcl 1,000 Mg Tablet) mg PO BID [facility] Methylprednisolone Sodium Succinate (Methylprednisolone Sod Succ 125 Mg/2 Ml Vial) 250 mg IVPUSH Q6H [facility] Non-Formulary Medication (Budesonide-Formoterol [Symbicort]) 1 puff PO BID [facility] Non-Formulary Medication (Cholecalciferol (Vitamin D3)) 1 cap PO VENEGAS [facility] Non-Formulary Medication (Cyanocobalamin (Vitamin B-12)) 1,000 mcg SUBLINGUAL DAILY [facility] Non-Formulary Medication (Empagliflozin [Jardiance]) 1 tab PO DAILY [facility] Non-Formulary Medication (Olmesartan-Hydrochlorothiazide) 1 tab PO DAILY [facility] Pharmacy Consult (Consult Rx Perform Med Rec) 1 each MISCELLANE ONCE PRN PRN Reason: Consult order Sodium Chloride (0.9 % Sodium Chloride Flush 3 Ml Syringe) 3 ml IVFLUSH QSHIFT [facility] Home Medications Medication Instructions Recorded Confirmed Last Taken Type albuterol sulfate 90 mcg/actuation 2 inh INHALATION Q4H PRN 05/24/21 05/24/21 Unknown History breath activated powder inhaler atorvastatin 40 mg tablet 1 tab PO BEDTIME 05/24/21 05/24/21 05/23/21 History budesonide-formoterol HFA 160 1 puff PO BID 05/24/21 05/24/21 05/24/21 History mcg-4.5 mcg/actuation aerosol inhaler (Symbicort) cholecalciferol (vitamin D3) 1,250 1 cap PO VENEGAS 05/24/21 05/24/21 05/20/21 History mcg (50,000 unit) capsule cyanocobalamin (vitamin B-12) 1,000 mcg SUBLINGUAL DAILY 05/24/21 05/24/21 05/24/21 History 1,000 mcg sublingual lozenge empagliflozin 25 mg tablet 1 tab PO DAILY 05/24/21 05/24/21 05/24/21 History (Jardiance) fenofibrate 160 mg tablet 1 tab PO DAILY 05/24/21 05/24/21 05/24/21 History levothyroxine 50 mcg tablet 50 mcg PO DAILY@0600 05/24/21 05/24/21 05/24/21 History metformin 1,000 mg tablet 1 tab PO BID 05/24/21 05/24/21 05/24/21 History olmesartan 40 1 tab PO DAILY 05/24/21 05/24/21 05/24/21 History mg-hydrochlorothiazide 25 mg tablet Physical Exam Vital Signs and Narrative: Vital Signs: Last Vital Signs Temp 98.7 F 05/24/21 10:05 Pulse 73 05/24/21 10:05 Resp 16 05/24/21 10:05 BP 123/84 05/24/21 10:05 Pulse Ox 89 L 05/24/21 12:54 BMI result Body Mass Index 32.1 Const: Other: awake alert oriented x3. able speak in full sentences HENMT: Other: oral pharynx clear; membranes moist Resp: Other: Bilateral end inspiratory crackles with scattered expiratory wheezes throughout. Good air entry all cabrales Cardio: Other: no S4; positive S1-S2; no S3 murmurs rubs or gallops GI: Other: soft nontender nondistended with normoactive bowel sounds Neuro: Other: cranial nerves 2-12 grossly intact as tested. Motor is 5 of 5 all extremities. Sensation intact. Cognition appropriate Extrem: Other: no edema bilaterally Results Labs CBC and Chem 7: 05/24/21 10:04 05/24/21 10:04 Labs: Laboratory Results - last 24 hr 05/24/21 05/24/21 05/24/21 09:53 10:04 10:04 MCV 85.4 MCH 29.4 MCHC 34.4 RDW 12.6 Plt Count 279 MPV 11.2 Immature Gran % (Auto) 0.2 Neut % (Auto) 72.8 Lymph % (Auto) 18.8 L [place] % (Auto) 5.4 Eos % (Auto) 2.3 Baso % (Auto) 0.5 Lymph # (Auto) 1.6 [place] # (Auto) 0.5 Eos # (Auto) 0.2 Baso # (Auto) 0.0 Abs Immat Gran (auto) 0.02 Absolute Neuts (auto) 6.3 Absolute Nucleated RBC 0.000 Nucleated RBC % (auto) 0.0 ESR Anion Gap 12 Estim Creat Clear Calc 77.4 Estimated GFR > 60 Random Glucose 138 H Calcium 11.2 H Magnesium 1.7 Total Bilirubin 0.5 Direct Bilirubin < 0.2 AST 23 ALT 23 Alkaline Phosphatase 104 Troponin I High Sens C-Reactive Protein 1.07 H B-Natriuretic Peptide Total Protein 7.1 Albumin 4.0 Procalcitonin Urine Color Urine Appearance Urine pH Ur Specific [place] Urine Protein Urine Glucose (UA) Urine Ketones Urine Blood Urine Nitrite Ur Leukocyte Esterase Urine RBC Urine WBC Ur Squamous Epith Cells Urine Bacteria Influenza Type A (PCR) NEGATIVE Influenza Type B (PCR) NEGATIVE RSV RNA Qual (PCR) NEGATIVE SARS-CoV-2 RNA (RT-PCR) NEGATIVE 05/24/21 05/24/21 05/24/21 10:04 10:04 10:04 MCV MCH MCHC RDW Plt Count MPV Immature Gran % (Auto) Neut % (Auto) Lymph % (Auto) [place] % (Auto) Eos % (Auto) Baso % (Auto) Lymph # (Auto) [place] # (Auto) Eos # (Auto) Baso # (Auto) Abs Immat Gran (auto) Absolute Neuts (auto) Absolute Nucleated RBC Nucleated RBC % (auto) ESR 12 Anion Gap Estim Creat Clear Calc Estimated GFR Random Glucose Calcium Magnesium Total Bilirubin Direct Bilirubin AST ALT Alkaline Phosphatase Troponin I High Sens 4.6 C-Reactive Protein B-Natriuretic Peptide 31 Total Protein Albumin Procalcitonin 0.10 Urine Color Urine Appearance Urine pH Ur Specific [place] Urine Protein Urine Glucose (UA) Urine Ketones Urine Blood Urine Nitrite Ur Leukocyte Esterase Urine RBC Urine WBC Ur Squamous Epith Cells Urine Bacteria Influenza Type A (PCR) Influenza Type B (PCR) RSV RNA Qual (PCR) SARS-CoV-2 RNA (RT-PCR) 05/24/21 12:57 MCV MCH MCHC RDW Plt Count MPV Immature Gran % (Auto) Neut % (Auto) Lymph % (Auto) [place] % (Auto) Eos % (Auto) Baso % (Auto) Lymph # (Auto) [place] # (Auto) Eos # (Auto) Baso # (Auto) Abs Immat Gran (auto) Absolute Neuts (auto) Absolute Nucleated RBC Nucleated RBC % (auto) ESR Anion Gap Estim Creat Clear Calc Estimated GFR Random Glucose Calcium Magnesium Total Bilirubin Direct Bilirubin AST ALT Alkaline Phosphatase Troponin I High Sens C-Reactive Protein B-Natriuretic Peptide Total Protein Albumin Procalcitonin Urine Color YELLOW Urine Appearance CLEAR Urine pH 7.0 Ur Specific [place] 1.010 Urine Protein NEG Urine Glucose (UA) >=1000 H Urine Ketones NEG Urine Blood NEG Urine Nitrite NEG Ur Leukocyte Esterase NEG Urine RBC 0 Urine WBC 0 Ur Squamous Epith Cells 2+ Urine Bacteria TRACE Influenza Type A (PCR) Influenza Type B (PCR) RSV RNA Qual (PCR) SARS-CoV-2 RNA (RT-PCR) Imaging Radiologist's Impressions: Impressions Chest X-Ray 05/24/21 09:43 IMPRESSION: Bilateral streaky and subtle groundglass airspace opacities mid and lower zones similar to recent chest radiographs 04/24/2021 and 04/08/2021. No interval fluid airspace consolidation or effusion. Chest CTA 05/24/21 11:42 IMPRESSION: 1. No pulmonary embolism. No thoracic aortic dissection. 2. Accentuated peripheral interstitial markings greater mid and lower zones with associated scattered nonspecific geographic groundglass opacities, greatest subpleural peripheral regions. Differential considerations include infectious inflammatory including atypical/viral pneumonia. 3. No pneumothorax, pleural thickening, or effusion. VTE: negative Assessment and Plan (1) Pneumonitis: Status: Acute (2) Diabetes: Status: Acute (3) HTN (hypertension): Status: Acute 55-year-old female with known history of seasonal asthma on inhaled steroids presents with worsening shortness of breath that has been present over the last 6 weeks. She has failed multiple outpatient courses of steroids and has not taken any antibiotics approximately 2 months. Last antibiotic was azithromycin. CT of chest demonstrated interstitial ground-glass opacities in the mid and lower zones. She will be admitted for further workup and pulmonary consultation 1.Pneumonitis ER discussed with Dr. Gonzalez; requested admission pulse dose steroids and he will consult Will continue outpatient therapies and add DuoNebs q.4 hours p.r.n. 2.HTN Continue ARB as outpatient 3.DMII Pt states will control on oral therapies last A1c less than 6 Will continue metformin and Jardiance as ordered and cover with sliding scale insulin adjust as indicated full code Lovenox Quality Stroke Does the patient have a stroke diagnosis?: No VTE Prior VTE?: No VTE Risk Level:: Medical - moderate - high VTE Device Contraindication: Treatment Not Indicated VTE Drug Contraindication: N/A - Med Ordered
[2021-05-24 16:36] VITALS: BP 120/80; PULSE 81; RESP 16; TEMP 36.6; O2SAT 96
[2021-05-24] MEDS: Enoxaparin Sodium 40 MG/0.4 ML SYRINGE SUBCUT (16:38)
[2021-05-24] MEDS: methylPREDNISolone Sod Succ 125 MG/2 ML VIAL 250 MG IVPUSH ×2 (16:38→19:53)
--- NOTE | 2021-05-24 16:44 | PC.NURSE ---
Pt received from main ED: Pt AOx4 and offers no complaints at this time. Heart sounds normal and congested lungs with strong, dry and non-productive cough. Pt abd rounded and non-tenderness.
[2021-05-24] MEDS: Atorvastatin Calcium 40 MG TABLET PO (19:53)
[2021-05-24] MEDS: 0.9 % Sodium Chloride Flush 3 ML SYRINGE IVFLUSH (19:54)
[2021-05-24 20:00] VITALS: BP 131/83; PULSE 88; RESP 17; TEMP 35.9; O2SAT 97
[2021-05-24 23:34] VITALS: BP 108/66; PULSE 86; RESP 18; TEMP 36.4; O2SAT 94
[2021-05-25] MEDS: methylPREDNISolone Sod Succ 125 MG/2 ML VIAL 250 MG IVPUSH ×4 (02:00→21:10)
[2021-05-25 03:09] VITALS: BP 119/71; PULSE 88; RESP 18; TEMP 36.6; O2SAT 96
[2021-05-25] MEDS: Levothyroxine Sodium 50 MCG TABLET PO (05:31)
[2021-05-25 05:52] LABS: MANUAL DIFF FLAG NO
[2021-05-25 06:01] LABS: Basophils Percent Auto 0.1 % (0-2); Hematocrit 41.8 % (37.0-47.0); Hemoglobin 14.2 g/dl (12.0-16.0); Imm Gran Abs Auto 0.07 X10*3/uL (0.00-0.03); Lymphocytes Percent Auto 14.5 % (20-40); Mean Corpuscular Hemoglobin 29.1 pg (27.0-33.0); Mean Corpuscular Volume 85.7 fL (80.0-98.0); Mean Platelet Volume 11.8 fL (9.4-12.3); Monocytes Percent Auto 0.4 % (2-11); Platelet Count 313 X10*3/uL (160-400); Red Blood Count 4.88 X10*6/uL (4.20-5.50); Red Cell Distribution Width 12.3 % (11.0-16.0); White Blood Count 7.2 X10*3/uL (4.8-10.8)
[2021-05-25 06:30] LABS: Alanine Aminotransferase 22 U/L (0-31); Albumin Level 3.9 g/dL (3.5-5.0); Alkaline Phosphatase 94 U/L (39-117); Anion Gap 15 (12-20); Aspartate Amino Transferase 18 U/L (5-31); Bilirubin Total 0.5 mg/dL (0.0-1.0); Blood Urea Nitrogen 24 mg/dL (9-16); Calcium 11.3 mg/dL (8.4-10.2); Carbon Dioxide 22 mmol/L (22-29); Chloride 103 mmol/L (96-108); Creatinine Clr Calc Pharmacy 73.7; Estimated Glomerular Filt Rate > 60; Glucose Fasting 201 mg/dL (60-99); Potassium 4.5 mmol/L (3.3-5.1); Sodium 135 mmol/L (135-145); Total Protein 6.9 g/dL (6.5-8.0)
[2021-05-25 07:34] VITALS: BP 132/82; PULSE 91; RESP 20; TEMP 36.6; O2SAT 95
[2021-05-25 08:10] LABS: HIV AB/AG Nonreactive (Nonreactive); HIV Num 1 0.06 S/CO (0.00-0.99)
[2021-05-25] MEDS: Cyanocobalamin (Vitamin B-12) 1,000 MCG TABLET 1000 MCG PO (08:16)
[2021-05-25] MEDS: 0.9 % Sodium Chloride Flush 3 ML SYRINGE IVFLUSH ×3 (08:18→21:11)
--- NOTE | 2021-05-25 09:33 | MHC.CM.PN ---
PATIENT IS FULLY INDEPENDENT SHE LIVES WITH HER SPOUSE/HCP (COPY REQUESTED), TWO DAUGHTERS AND 2 GRANDCHILDREN. PATIENT USES NO DME OR VNA SERVICES. SHE DOES HAVE A RESCUE INHALER AND CYMBACORT. PLAN IS FOR HOME WITH NO SERVICES DAUGHTER TO TRANSPORT.
--- NOTE | 2021-05-25 11:34 | HO.PM.IMPN ---
Subjective Subjective Date of Service: 05/25/21 Interval History: the patient was seen and evaluated this morning Laying in bed, feels Better than yesterday but still having dyspnea on exertion Episodes of cough and shortness of breath No reported other overnight events. Systemic review: No fever, chills or weakness No chest pain, palpitation dyspnea on exertion, shortness of breath, cough No abdominal pain, nausea or vomiting No urinary symptoms joint pain upon waking up Physical Exam Vital Signs: Vital Signs: Last Vital Signs Temp 97.9 F 05/25/21 07:34 Pulse 91 05/25/21 07:34 Resp 20 05/25/21 07:34 BP 132/82 05/25/21 07:34 Pulse Ox 95 05/25/21 07:34 BMI result Body Mass Index 32.1 Const: Other: Constitutional : Alert, oriented, not in distress Neck : Normal inspection, Supple Cardiovascular : RRR, S1 S2, no lower extremity edema Respiratory : fair bilateral air entry but decreased at the bases, fine basal crackles, no wheezes or rhonchi Gastrointestinal: soft, lax, Normal bowel sounds, Non tender Skin : Warm, Dry Neurological : Alert & oriented x3, No focal deficit Objective Data Active Medications Acetaminophen (Acetaminophen 325 Mg Tablet) 650 mg PO Q6H PRN PRN Reason: Pain, Mild (Pain Scale 1-3) Albuterol Sulfate (Albuterol Sulfate 90 Mcg 8 Gm Inhaler) 2 puff INHALE Q4H PRN PRN Reason: Wheezing Albuterol/Ipratropium (Albuterol/Iprat 2.5/0.5mg 3 Ml Ampul.Neb) 3 ml INHALE Q6H PRN PRN Reason: Shortness of Breath/Wheezing Atorvastatin Calcium (Atorvastatin Calcium 40 Mg Tablet) 40 mg PO BEDTIME [facility] Last Admin: 05/24/21 19:53 Dose: 40 mg Documented by: ROHAN Cyanocobalamin (Cyanocobalamin (Vitamin B-12) 1,000 Mcg Tablet) 1,000 mcg PO DAILY [facility] Last Admin: 05/25/21 08:16 Dose: 1,000 mcg Documented by: IGOR Enoxaparin Sodium (Enoxaparin Sodium 40 Mg/0.4 Ml Syringe) 40 mg SUBCUT Q24H [facility] Last Admin: 05/24/21 16:38 Dose: 40 mg Documented by: HO.N-MALIR Fenofibrate (Fenofibrate 160 Mg Tablet) 160 mg PO DAILY [facility] Last Admin: 05/25/21 08:21 Dose: Not Given Documented by: IGOR Non-Admin Reason: Patient Refused Fluticasone/Vilanterol (Fluticasone/Vilanterol 200/25 Blst.W.Dev) 1 puff INHALE DAILY [facility] Last Admin: 05/25/21 08:47 Dose: Not Given Documented by: ADY Non-Admin Reason: Med Not Available Guaifenesin (Guaifenesin La 600 Mg Tab.Er.12h) 600 mg PO BID [facility] Hydrochlorothiazide (Hydrochlorothiazide 25 Mg Tablet) 25 mg PO DAILY [facility] Last Admin: 05/25/21 08:22 Dose: Not Given Documented by: IGOR Non-Admin Reason: Patient Refused Levothyroxine Sodium (Levothyroxine Sodium 50 Mcg Tablet) 50 mcg PO DAILY@0600 [facility] Last Admin: 05/25/21 05:31 Dose: 50 mcg Documented by: ROHAN Metformin HCl (Metformin Hcl 1,000 Mg Tablet) 1,000 mg PO BID [facility] Methylprednisolone Sodium Succinate (Methylprednisolone Sod Succ 125 Mg/2 Ml Vial) 250 mg IVPUSH Q6H [facility] Last Admin: 05/25/21 08:22 Dose: 250 mg Documented by: IGOR Non-Formulary Medication (Cholecalciferol (Vitamin D3)) 1 cap PO VENEGAS [facility] Non-Formulary Medication (Empagliflozin [Jardiance]) 1 tab PO DAILY [facility] Pharmacy Consult (Consult Rx Perform Med Rec) 1 each MISCELLANE ONCE PRN PRN Reason: Consult order Sodium Chloride (0.9 % Sodium Chloride Flush 3 Ml Syringe) 3 ml IVFLUSH QSHIFT [facility] Last Admin: 05/25/21 08:18 Dose: 3 ml Documented by: IGOR Valsartan (Valsartan 160 Mg Tablet) 160 mg PO DAILY [facility] Last Admin: 05/25/21 08:22 Dose: Not Given Documented by: IGOR Non-Admin Reason: Patient Refused Labs CBC & Chem 7: 05/25/21 05:15 05/25/21 05:15 Labs: Laboratory Results - last 24 hr 05/24/21 05/24/21 05/24/21 10:04 10:04 10:04 MCV MCH MCHC RDW Plt Count MPV Immature Gran % (Auto) Neut % (Auto) Lymph % (Auto) [place] % (Auto) Eos % (Auto) Baso % (Auto) Lymph # (Auto) [place] # (Auto) Eos # (Auto) Baso # (Auto) Abs Immat Gran (auto) Absolute Neuts (auto) Absolute Nucleated RBC Nucleated RBC % (auto) ESR 12 Anion Gap Estim Creat Clear Calc Estimated GFR Fasting Glucose Calcium Total Bilirubin AST ALT Alkaline Phosphatase C-Reactive Protein 1.07 H Total Protein Albumin Procalcitonin 0.10 Urine Color Urine Appearance Urine pH Ur Specific [place] Urine Protein Urine Glucose (UA) Urine Ketones Urine Blood Urine Nitrite Ur Leukocyte Esterase Urine RBC Urine WBC Ur Squamous Epith Cells Urine Bacteria HIV 1&2 Ab/P24 Ag 4thGn 05/24/21 05/24/21 05/25/21 10:04 12:57 05:15 MCV 85.7 MCH 29.1 MCHC 34.0 RDW 12.3 Plt Count 313 MPV 11.8 Immature Gran % (Auto) 1.0 H Neut % (Auto) 84.0 H Lymph % (Auto) 14.5 L [place] % (Auto) 0.4 L Eos % (Auto) 0.0 Baso % (Auto) 0.1 Lymph # (Auto) 1.0 L [place] # (Auto) 0.0 L Eos # (Auto) 0.0 Baso # (Auto) 0.0 Abs Immat Gran (auto) 0.07 H Absolute Neuts (auto) 6.0 Absolute Nucleated RBC 0.000 Nucleated RBC % (auto) 0.0 ESR Anion Gap Estim Creat Clear Calc Estimated GFR Fasting Glucose Calcium Total Bilirubin AST ALT Alkaline Phosphatase C-Reactive Protein Total Protein Albumin Procalcitonin Urine Color YELLOW Urine Appearance CLEAR Urine pH 7.0 Ur Specific [place] 1.010 Urine Protein NEG Urine Glucose (UA) >=1000 H Urine Ketones NEG Urine Blood NEG Urine Nitrite NEG Ur Leukocyte Esterase NEG Urine RBC 0 Urine WBC 0 Ur Squamous Epith Cells 2+ Urine Bacteria TRACE HIV 1&2 Ab/P24 Ag 4thGn Nonreactive 05/25/21 05:15 MCV MCH MCHC RDW Plt Count MPV Immature Gran % (Auto) Neut % (Auto) Lymph % (Auto) [place] % (Auto) Eos % (Auto) Baso % (Auto) Lymph # (Auto) [place] # (Auto) Eos # (Auto) Baso # (Auto) Abs Immat Gran (auto) Absolute Neuts (auto) Absolute Nucleated RBC Nucleated RBC % (auto) ESR Anion Gap 15 Estim Creat Clear Calc 73.7 Estimated GFR > 60 Fasting Glucose 201 H Calcium 11.3 H Total Bilirubin 0.5 AST 18 ALT 22 Alkaline Phosphatase 94 C-Reactive Protein Total Protein 6.9 Albumin 3.9 Procalcitonin Urine Color Urine Appearance Urine pH Ur Specific [place] Urine Protein Urine Glucose (UA) Urine Ketones Urine Blood Urine Nitrite Ur Leukocyte Esterase Urine RBC Urine WBC Ur Squamous Epith Cells Urine Bacteria HIV 1&2 Ab/P24 Ag 4thGn Assessment and Plan (1) Pneumonitis: Status: Acute (2) Diabetes: Status: Acute Assessment and Plan: 55-year-old female with known history of seasonal asthma on inhaled steroids presents with worsening shortness of breath that has been present over the last 6 weeks. She has failed multiple outpatient courses of steroids and has not taken any antibiotics approximately 2 months. Last antibiotic was azithromycin. CT of chest demonstrated interstitial ground-glass opacities in the mid and lower zones. She will be admitted for further workup and pulmonary consultation 1.Pneumonitis images negative for any infiltrates Continuepulse dose steroids per Pulmonology Pulmonology consult pending to use DuoNebs q.4 hours p.r.n. plan for outpatient follow-up 2.HTN Continue ARB as outpatient 3.DMII Pt states will control on oral therapies last A1c less than 6 Will continue metformin and Jardiance as ordered and cover with sliding scale insulin adjust as indicated full code Lovenox Quality Stroke Does the patient have a stroke diagnosis?: No VTE Prior VTE?: No VTE Risk Level:: Medical - moderate - high VTE Device Contraindication: Treatment Not Indicated VTE Drug Contraindication: N/A - Med Ordered
[2021-05-25] MEDS: guaiFENesin LA 600 MG TAB.ER.12H PO ×2 (11:44→21:10)
--- NOTE | 2021-05-25 11:57 | P.CONPL_ITS ---
History of Present Illness History of Present Illness Consult date: 05/25/21 Chief complaint: SOB Narrative: This is an inpatient consultation. The patient is a 55 y/o female with history of diabetes, HTN, HLD who presents to the ER with ongoing shortness of breath and coughing episodes since March.? She has been seen in multiple urgent care offices as well as the emergency department for this.? She was treated with 3 courses of prednisone, Tessalon and antibiotics with no improvement. She reports ongoing shortness of breath with exertion as well as coughing fits that are so severe it causes her to vomit and feel like she is going to pass out.? She has no associated chest pain or fevers.? She is a nonsmoker with no history of asthma or COPD.? She also reports that back in April she was having significant joint swelling in her hands and knees. She was evaluated by Rheumatology and awaiting bloodwork. In the meantime she was noted to be dyspneic with crackles on examination. She was recommended to go to the ED. In the ED she was hypoxic to 84% with activity and CT chest with GGO bilaterally primarily at the bases. Covid testing negative. Review of Systems Constitutional: Constitutional: Denies night sweats ENT: Denies change in voice, Denies lip swelling, Denies mouth pain, Reports nasal congestion, Reports nasal discharge, Reports neck pain and Denies tongue swelling Cardiovascular: Cardiovascular: Denies chest pain, Reports dyspnea and Reports dyspnea on exertion Respiratory: Respiratory: Reports chest congestion, Reports cough, Denies pain on inspiration, Denies pain with cough, Reports dyspnea and Reports dyspnea on exertion Gastrointestinal: Gastrointestinal: Denies abdominal pain Musculoskeletal: Musculoskeletal: Reports as per HPI, Reports arthralgias, Reports joint swelling, Reports limited range of motion, Reports neck pain, Reports numbness and Reports stiffness Neurologic: Denies Neuro-related abnormal movements and Reports numbness Psychiatric: Psychiatric: Denies no additional psychiatric complaints Hematologic/Lymphatic: Hematologic/Lymphatic: Denies easy bleeding and Denies lymphadenopathy Allergic/Immunologic: Allergic/Immunologic: Denies lip swelling and Denies tongue swelling [facility] Past Medical History Medical History (Updated 05/25/21 @ 12:01 by Minesh Randall MD) Acute respiratory failure Diabetes HTN (hypertension) Hypothyroid Social History Social History Household Members: Children Housing: House Do you presently have visiting nurse or other home services: No Alcohol intake: never Patient Tobacco Use Status: Never used Tobacco service: No Current occupational status: retired Meds Allergies Allergy/AdvReac Type Severity Reaction Status Date / Time acetaminophen [Percocet] Allergy Unknown nausea and Verified 07/29/18 00:00 vomiting oxycodone [Percocet] Allergy Unknown nausea and Verified 07/29/18 00:00 vomiting Active Medications: Current Medications Acetaminophen (Acetaminophen 325 Mg Tablet) 650 mg PO Q6H PRN PRN Reason: Pain, Mild (Pain Scale 1-3) Albuterol Sulfate (Albuterol Sulfate 90 Mcg 8 Gm Inhaler) 2 puff INHALE Q4H PRN PRN Reason: Wheezing Albuterol/Ipratropium (Albuterol/Iprat 2.5/0.5mg 3 Ml Ampul.Neb) 3 ml INHALE Q6H PRN PRN Reason: Shortness of Breath/Wheezing Atorvastatin Calcium (Atorvastatin Calcium 40 Mg Tablet) 40 mg PO BEDTIME [facility] Last Admin: 05/24/21 19:53 Dose: 40 mg Documented by: Cyanocobalamin (Cyanocobalamin (Vitamin B-12) 1,000 Mcg Tablet) 1,000 mcg PO DAILY [facility] Last Admin: 05/25/21 08:16 Dose: 1,000 mcg Documented by: Enoxaparin Sodium (Enoxaparin Sodium 40 Mg/0.4 Ml Syringe) 40 mg SUBCUT Q24H [facility] Last Admin: 05/24/21 16:38 Dose: 40 mg Documented by: Fenofibrate (Fenofibrate 160 Mg Tablet) 160 mg PO DAILY [facility] Last Admin: 05/25/21 08:21 Dose: Not Given Documented by: Fluticasone/Vilanterol (Fluticasone/Vilanterol 200/25 Blst.W.Dev) 1 puff INHALE DAILY [facility] Last Admin: 05/25/21 08:47 Dose: Not Given Documented by: Guaifenesin (Guaifenesin La 600 Mg Tab.Er.12h) 600 mg PO BID [facility] Last Admin: 05/25/21 11:44 Dose: 600 mg Documented by: Hydrochlorothiazide (Hydrochlorothiazide 25 Mg Tablet) 25 mg PO DAILY [facility] Last Admin: 05/25/21 08:22 Dose: Not Given Documented by: Levothyroxine Sodium (Levothyroxine Sodium 50 Mcg Tablet) 50 mcg PO DAILY@0600 [facility] Last Admin: 05/25/21 05:31 Dose: 50 mcg Documented by: Metformin HCl (Metformin Hcl 1,000 Mg Tablet) 1,000 mg PO BID [facility] Methylprednisolone Sodium Succinate (Methylprednisolone Sod Succ 125 Mg/2 Ml Vial) 250 mg IVPUSH Q6H [facility] Last Admin: 05/25/21 08:22 Dose: 250 mg Documented by: Non-Formulary Medication (Cholecalciferol (Vitamin D3)) 1 cap PO VENEGAS [facility] Non-Formulary Medication (Empagliflozin [Jardiance]) 1 tab PO DAILY [facility] Pharmacy Consult (Consult Rx Perform Med Rec) 1 each MISCELLANE ONCE PRN PRN Reason: Consult order Sodium Chloride (0.9 % Sodium Chloride Flush 3 Ml Syringe) 3 ml IVFLUSH QSHIFT [facility] Last Admin: 05/25/21 08:18 Dose: 3 ml Documented by: Valsartan (Valsartan 160 Mg Tablet) 160 mg PO DAILY [facility] Last Admin: 05/25/21 08:22 Dose: Not Given Documented by: Home Medications Medication Instructions Recorded Confirmed Last Taken Type albuterol sulfate 90 mcg/actuation 2 inh INHALATION Q4H PRN 05/24/21 05/24/21 Unknown History breath activated powder inhaler atorvastatin 40 mg tablet 1 tab PO BEDTIME 05/24/21 05/24/21 05/23/21 History budesonide-formoterol HFA 160 1 puff PO BID 05/24/21 05/24/21 05/24/21 History mcg-4.5 mcg/actuation aerosol inhaler (Symbicort) cholecalciferol (vitamin D3) 1,250 1 cap PO VENEGAS 05/24/21 05/24/21 05/20/21 History mcg (50,000 unit) capsule cyanocobalamin (vitamin B-12) 1,000 mcg SUBLINGUAL DAILY 05/24/21 05/24/21 05/24/21 History 1,000 mcg sublingual lozenge empagliflozin 25 mg tablet 1 tab PO DAILY 05/24/21 05/24/21 05/24/21 History (Jardiance) fenofibrate 160 mg tablet 1 tab PO DAILY 05/24/21 05/24/21 05/24/21 History levothyroxine 50 mcg tablet 50 mcg PO DAILY@0600 05/24/21 05/24/21 05/24/21 History metformin 1,000 mg tablet 1 tab PO BID 05/24/21 05/24/21 05/24/21 History olmesartan 40 1 tab PO DAILY 05/24/21 05/24/21 05/24/21 History mg-hydrochlorothiazide 25 mg tablet Physical Exam Vital Signs: Vital Signs: Last Vital Signs Temp 97.9 F 05/25/21 07:34 Pulse 91 05/25/21 07:34 Resp 20 05/25/21 07:34 BP 132/82 05/25/21 07:34 Pulse Ox 95 05/25/21 07:34 BMI result Body Mass Index 32.1 Const: General: alert Neck: Neck: Yes normal visual inspection, Yes full ROM and Yes no lympha denopathy Chest: Chest palpation & inspection: normal inspection of the chest Resp: Auscultation: crackles bilateral at the base and diminished lung sounds Cardio: Rate: regular rate Rhythm: regular rhythm Heart sounds: S1 normal heart sound present and S2 normal heart sound present GI: Palpation (GI): Soft to palpation and nontender Auscultation: normal bowel sounds Skin: General skin exam: rashes and/or lesions noted Results Laboratory Findings CBC and BMP: 05/25/21 05:15 05/25/21 05:15 Abnormal lab findings: Abnormal Labs 05/24/21 05/24/21 05/24/21 10:04 10:04 12:57 Immature Gran % (Auto) Neut % (Auto) Lymph % (Auto) 18.8 L [place] % (Auto) Lymph # (Auto) [place] # (Auto) Abs Immat Gran (auto) BUN Random Glucose 138 H Fasting Glucose Calcium 11.2 H C-Reactive Protein 1.07 H Urine Glucose (UA) >=1000 H 05/25/21 05/25/21 05:15 05:15 Immature Gran % (Auto) 1.0 H Neut % (Auto) 84.0 H Lymph % (Auto) 14.5 L [place] % (Auto) 0.4 L Lymph # (Auto) 1.0 L [place] # (Auto) 0.0 L Abs Immat Gran (auto) 0.07 H BUN 24 H D Random Glucose Fasting Glucose 201 H Calcium 11.3 H C-Reactive Protein Urine Glucose (UA) Assessment and Plan (1) Pneumonitis: Status: Acute (2) Acute respiratory failure: Status: Acute The patient is presenting with progressively worsening respiratory sympt oms for the last 3 months with also rheumatological symptoms concerning for possibility of a connective tissue related interstitial lung process. Based on the CT scan findings it is very suspicious of nonspecific interstitial pneumonia (NSIP) which may be seen with both lupus and also rheumatoid arthritis along with other connective and mixed connective disorder. She failed outpatient therapy multiple times on oral prednisone. The workup is still pending in the meantime completing a pulse dose steroid course. Rec: Continue Solu-Medrol 250 mg IV q.6 will reassess in 24 hours Awaiting blood work. Likely he will need to follow-up as an outpatient to review all the results are for the most part sent out labs it may take a longer duration to be get the results Repeat chest x-ray tomorrow Will follow-up Procedures Date of Service Date of Service: 05/25/21
[2021-05-25 15:01] VITALS: BP 133/74; PULSE 106; RESP 20; TEMP 36.1; O2SAT 92
[2021-05-25] MEDS: Enoxaparin Sodium 40 MG/0.4 ML SYRINGE SUBCUT (15:29)
[2021-05-25 18:56] VITALS: BP 124/61; PULSE 89; RESP 20; TEMP 36.1; O2SAT 94
[2021-05-25] MEDS: Atorvastatin Calcium 40 MG TABLET PO (21:10)
[2021-05-25] MEDS: Acetaminophen 325 MG TABLET 650 MG PO (21:10)
[2021-05-26] VITALS: BP 111/69; PULSE 81; RESP 16; TEMP 36.6; O2SAT 99
[2021-05-26] MEDS: methylPREDNISolone Sod Succ 125 MG/2 ML VIAL 250 MG IVPUSH ×3 (01:51→13:12)
[2021-05-26 03:48] VITALS: BP 104/57; PULSE 80; RESP 18; TEMP 35.9; O2SAT 98
[2021-05-26] MEDS: Levothyroxine Sodium 50 MCG TABLET PO (05:04)
--- NOTE | 2021-05-26 05:59 | PC.NURSE ---
Pt able to walk around room and tolerating room air but still presents mild SOB with ambulation, meds given, slept well
[2021-05-26 07:00] LABS: MANUAL DIFF FLAG NO
[2021-05-26 07:14] LABS: Basophils Percent Auto 0.1 % (0-2); Eosinophils Absolute Auto 0.1 X10*3/uL (0.0-0.4); Eosinophils Percent Auto 0.9 % (0-4); Hematocrit 39.2 % (37.0-47.0); Hemoglobin 13.2 g/dl (12.0-16.0); Imm Gran Abs Auto 0.09 X10*3/uL (0.00-0.03); Imm Gran Pct Auto 0.7 % (0.0-0.4); Lymphocytes Absolute Auto 1.3 X10*3/uL (1.2-4.9); Mean Corpuscular HGB Conc 33.7 g/dl (31.0-35.0); Mean Corpuscular Hemoglobin 28.8 pg (27.0-33.0); Mean Corpuscular Volume 85.4 fL (80.0-98.0); Mean Platelet Volume 12.4 fL (9.4-12.3); Monocytes Absolute Auto 0.2 X10*3/uL (0.1-1.2); Monocytes Percent Auto 1.8 % (2-11); Neutrophils Absolute Auto 10.9 x10*3/uL (2.0-8.3); Neutrophils Percent Auto 86.5 % (45-73); Platelet Count 335 X10*3/uL (160-400); Red Blood Count 4.59 X10*6/uL (4.20-5.50); Red Cell Distribution Width 12.6 % (11.0-16.0); White Blood Count 12.6 X10*3/uL (4.8-10.8)
[2021-05-26 07:17] VITALS: BP 111/71; PULSE 84; RESP 16; TEMP 36.6; O2SAT 94
[2021-05-26 07:42] LABS: Alanine Aminotransferase 20 U/L (0-31); Albumin Level 3.9 g/dL (3.5-5.0); Alkaline Phosphatase 85 U/L (39-117); Anion Gap 13 (12-20); Aspartate Amino Transferase 14 U/L (5-31); Bilirubin Total 0.5 mg/dL (0.0-1.0); Blood Urea Nitrogen 31 mg/dL (9-16); Blood Urea Nitrogen 32 mg/dL (9-16); Calcium 11.2 mg/dL (8.4-10.2); Carbon Dioxide 23 mmol/L (22-29); Chloride 103 mmol/L (96-108); Creatinine Clr Calc Pharmacy 71.9; Creatinine Clr Calc Pharmacy 72.8; Estimated Glomerular Filt Rate > 60; Glucose Fasting 206 mg/dL (60-99); Glucose Random 204 mg/dL (60-115); Potassium 4.1 mmol/L (3.3-5.1); Sodium 135 mmol/L (135-145); Total Protein 6.6 g/dL (6.5-8.0)
[2021-05-26] MEDS: guaiFENesin LA 600 MG TAB.ER.12H PO (09:01)
[2021-05-26] MEDS: Cyanocobalamin (Vitamin B-12) 1,000 MCG TABLET 1000 MCG PO (09:01)
[2021-05-26] MEDS: 0.9 % Sodium Chloride Flush 3 ML SYRINGE IVFLUSH (09:02)
--- NOTE | 2021-05-26 10:28 | PM.DS ---
DS: Providers Provider Date of Service: 05/26/21 Date of admission: 05/24/21 14:30 Primary care physician: Jocelyn Rivera MD Consults: 05/24/21 13:22 Consult to Pulmonology Stat Consulting Provider: Minesh Randall Reason for consultation: GGO, concern for pneumonitis ?eosinophilic Has provider been notified: Yes DS: Diagnosis Discharge Diagnosis (1) Pneumonitis: Status: Acute (2) HTN (hypertension): Status: Acute (3) Difficulty breathing: Status: Acute DS: Summary Hospital Course Hospital Course: admission note HPI 55 y/o female with history of diabetes, HTN, HLD who presents to the ER with ongoing shortness of breath and coughing episodes since March.? She has been seen in multiple urgent care offices as well as the emergency department for this.? She was treated with 3 courses of prednisone, Tessalon and antibiotics with no improvement. She reports ongoing shortness of breath with exertion as well as coughing fits that are so severe it causes her to vomit and feel like she is going to pass out.? She has no associated chest pain or fevers.? She is a nonsmoker with no history of asthma or COPD.? She reports she gets ?winter asthma? and has had history of bronchitis in the past but never this bad.? She also reports that back in April she was having significant joint swelling in her hands and knees Hospital course The patient was admitted after CT scan was consistent with bilateral peripheral infiltrates suspicious for inflammatory or viral DC use. Treated mainly with steroids for suspicion of pneumonitis. Evaluated by pulmonology team who recommended outpatient follow-up and to continue 1 month of tapering dose of steroids. The patient did not require any oxygen supplement during the hospital stay as her symptoms started to improve but did not completely resolved. She will follow-up with Dr. Randall in the office for further evaluation. Time Spent with Patient Time attestation: Total time spent providing and/or coordinating discharge services: Discharge coordination time: Greater than 30 minutes Quality: Stroke Does the patient have a stroke diagnosis?: No Physical Exam Vital Signs: Vital Signs: Last Vital Signs Temp 97.8 F 05/26/21 07:17 Pulse 84 05/26/21 07:17 Resp 16 05/26/21 07:17 BP 111/71 05/26/21 07:17 Pulse Ox 94 05/26/21 07:17 BMI result Body Mass Index 32.1 Const: Other: Constitutional : Alert, oriented, not in distress Neck : Normal inspection, Supple Cardiovascular : RRR, S1 S2, no lower extremity edema Respiratory : fair bilateral air entry but decreased at the bases, No basal crackles, no wheezes or rhonchi Gastrointestinal: soft, lax, Normal bowel sounds, Non tender Skin : Warm, Dry Neurological : Alert & oriented x3, No focal deficit DS: Data Data Completed and Pending Labs on day of discharge: Laboratory Results - last 24 hr 05/26/21 05/26/21 05/26/21 05:48 05:48 05:48 WBC 12.6 H RBC 4.59 Hgb 13.2 Hct 39.2 MCV 85.4 MCH 28.8 MCHC 33.7 RDW 12.6 Plt Count 335 MPV 12.4 H Immature Gran % (Auto) 0.7 H Neut % (Auto) 86.5 H Lymph % (Auto) 10.0 L [place] % (Auto) 1.8 L Eos % (Auto) 0.9 Baso % (Auto) 0.1 Lymph # (Auto) 1.3 [place] # (Auto) 0.2 Eos # (Auto) 0.1 Baso # (Auto) 0.0 Abs Immat Gran (auto) 0.09 H Absolute Neuts (auto) 10.9 H Absolute Nucleated RBC 0.000 Nucleated RBC % (auto) 0.0 Sodium 135 135 Potassium 4.1 4.1 Chloride 103 103 Carbon Dioxide 23 23 Anion Gap 13 13 BUN 32 H 31 H Creatinine 0.84 0.83 Estim Creat Clear Calc 71.9 72.8 Estimated GFR > 60 > 60 Random Glucose 204 H Fasting Glucose 206 H Calcium 11.2 H 11.2 H Total Bilirubin 0.5 AST 14 ALT 20 Alkaline Phosphatase 85 Total Protein 6.6 Albumin 3.9 Discharge Plan Discharge Patient Disposition: Home, Self-Care Discharge Diagnosis: pneumonitis Referrals: Jocelyn Rivera MD [Primary Care Provider] - 1 Week Discharge Medications: New guaifenesin [Mucinex] 600 mg Tablet Extended Release 12hr 600 mg PO BID Qty: 20 RF: 0 prednisone 20 mg tablet See Taper mg PO DAILY Qty: 45 RF: 0 Continued atorvastatin 40 mg tablet 1 tab PO BEDTIME RF: 0 levothyroxine 50 mcg tablet 50 mcg PO DAILY@0600 RF: 0 metformin 1,000 mg tablet 1 tab PO BID RF: 0 olmesartan-hydrochlorothiazide 40-25 mg tablet 1 tab PO DAILY RF: 0 fenofibrate 160 mg tablet 1 tab PO DAILY RF: 0 cholecalciferol (vitamin D3) 1,250 mcg (50,000 unit) capsule 1 cap PO VENEGAS RF: 0 budesonide-formoterol [Symbicort] 160-4.5 mcg/actuation HFA aerosol inhaler 1 puff PO BID RF: 0 Jardiance 25 mg tablet 1 tab PO DAILY RF: 0 cyanocobalamin (vitamin B-12) 1,000 mcg Lozenge 1,000 mcg SUBLINGUAL DAILY RF: 0 albuterol sulfate 90 mcg/actuation Aerosol Powdr Breath Activated 2 inh INHALATION Q4H PRN (Reason: Wheezing) RF: 0 Discharge Orders: Discharge Order (Routine); Ordered 05/26/21 Ordered By: Eddie Rubi Diet: advance to usual diet Activity on Discharge: As tolerated Stand Alone Forms: Patient Portal Discharge page Care Plan Goals: Read below Health Concerns: Read below Plan of Treatment: Read below Assessment: you were admitted to the hospital for evaluation of difficulty breathing. Images of the chest were consistent with bilateral infiltrates in your lungs. Evaluated by lung specialist Dr. Randall who recommended prolonged treatment with tapering dose of prednisone and to follow-up with him in the office. Discharge Date/Time: 05/26/21 14:04
[2021-05-26 12:00] VITALS: BP 123/70; PULSE 101; RESP 16; TEMP 36.6; O2SAT 94
--- NOTE | 2021-05-26 12:02 | MHC.CM.PN ---
PT DISCHARGING HOME SELF-CARE, FAMILY FOR TRANSPORT
[2021-05-28 12:41] LABS: Calcium (PTHI) 11.2 mg/dL (8.6-10.4); PTHI 89 pg/mL (14-64)
[2021-05-28 13:46] LABS: Anti Nuclear Antibody Screen NEGATIVE (NEGATIVE)
[2021-05-28 16:22] LABS: Cyclic Citrullinated Peptide <16 UNITS
[2021-05-28 22:12] LABS: Immunoglobulin E 84 kU/L (<OR=114)
[2021-05-30 07:52] LABS: Anti DNA DS Antibody <1 IU/mL; Myeloperoxidase Antibody <1.0 AI; Proteinase 3 PR3 Antibodies <1.0 AI
[2021-05-30 16:41] LABS: Legionella Ag Urine Not Detected (Not Detected)
[2021-05-30 20:16] LABS: Asperg fumigatus Precip Abs NEGATIVE (NEGATIVE); Micropoly faeni Abs NEGATIVE (NEGATIVE); Pigeon serum Abs NEGATIVE (NEGATIVE); Saccharo pora viridis Abs NEGATIVE (NEGATIVE); Thermo candidus Abs NEGATIVE (NEGATIVE); Thermoa vulgaris #1 NEGATIVE (NEGATIVE)
== END 2021-05-26 14:04 | disposition home or self-care (01) | DRG 139 ==
LOC: HO.ED 13:33 → HO.EDOVER 14:37 → HO.S3 17:01
PROVIDERS: Hospitalist; Physician Assistant; Admitting Provider Hospitalist; Emergency Provider Emergency Medicine; PCP Internal Medicine; Visit Provider Student in an Organized Health Care Education/Training Program
DX: J18.9 Pneumonia, unspecified organism (principal); E03.9 Hypothyroidism, unspecified; E11.9 Type 2 diabetes mellitus without complications; I10 Essential (primary) hypertension; Z20.822 Contact with and (suspected) exposure to COVID-19; Z88.5 Allergy status to narcotic agent; Z88.6 Allergy status to analgesic agent; Z79.84 Long term (current) use of oral hypoglycemic drugs; Z79.890 Hormone replacement therapy; Z79.899 Other long term (current) drug therapy
CPT/HCPCS: 0241U; 36415; 71046; 71275; 80048; 80053; 80076; 81001; 82785; 83735; 83880; 83970; 84145; 84484; 85025; 85652; 86021; 86038; 86039; 86140; 86200; 86225; 86331; 86606; 86609; 87389; 87449; 93005; 96374; 99285; 99291; J1650; J2930; Q9967

== ENCOUNTER 2021-05-31 12:31 | Outpatient (REF) | payer OTHER, SELFPAY ==
--- NOTE | ~2021-05-31 | MM_ITS ---
EXAMINATION: MM SCREENING DIGITAL BREAST TOMOSYNTHESIS, BILATERAL CLINICAL INFORMATION: Screening. Asymptomatic. Status post right breast biopsy 2017 (focal ADH), subsequent excisional biopsy 07/21/2018 (flat epithelial atypia, not seen at examined margins). The lifetime risk of breast cancer based on the Tyrer-Cuzick Model is 31%. COMPARISON: Mammography: 05/30/2020, 07/21/2018, 04/27/2018, 04/16/2018, 09/16/2017. TECHNIQUE: Digital breast tomosynthesis is performed in both the craniocaudal and mediolateral oblique views along with computer-aided detection (CAD). Synthesized 2D images are generated from the tomosynthesis. FINDINGS: There are scattered areas of fibroglandular density (ACR BI-RADS breast composition Category b). There are no significant masses, abnormal calcifications, or other abnormalities. There is no developing density or interval architectural abnormality or abnormal calcifications. MM/MM tomosynthesis screening BI IMPRESSION: No significant changes. ASSESSMENT: BI-RADS 2: Benign RECOMMENDATION: 1. Routine annual mammography screening. 2. The lifetime risk of breast cancer based on the Tyrer-Cuzick Model is 31%. Additional annual adjunct screening with breast MRI may be of benefit in women with a risk score of 20% or greater. This patient's information was entered into a reminder system with a target due date for their next mammogram.
== END 2021-05-31 12:32 | disposition home or self-care (01) ==
LOC: HO.MAMMO 12:31
PROVIDERS: Visit Provider Internal Medicine
DX: Z12.31 Encounter for screening mammogram for malignant neoplasm of breast (principal)
CPT/HCPCS: 77063; 77067

== ENCOUNTER 2021-06-06 10:02 | Outpatient (REF) | payer OTHER, SELFPAY ==
[2021-06-07 20:27] LABS: Immunoglobulin G Subclass 1 449 mg/dL (382-929); Immunoglobulin G Subclass 2 225 mg/dL (241-700); Immunoglobulin G Subclass 3 34 mg/dL (22-178); Immunoglobulin G Subclass 4 24.2 mg/dL (4-86); Immunoglobulin G Total 780 mg/dL (600-1640)
[2021-06-08 06:57] LABS: Antibody to SS-A Antigen <1.0 NEG AI (<1.0 NEG); Antibody to SS-B Antigen <1.0 NEG AI (<1.0 NEG); Scleroderma 70 Antibody <1.0 NEG AI (<1.0 NEG)
[2021-06-11 09:51] LABS: Angiotensin Converting Enzyme 27.5 U/L (9-67)
== END 2021-06-06 10:03 | disposition home or self-care (01) ==
LOC: HO.LAB 10:02
PROVIDERS: PCP Internal Medicine; Visit Provider Hospitalist
DX: J18.9 Pneumonia, unspecified organism (principal); J96.00 Acute respiratory failure, unspecified whether with hypoxia or hypercapnia; R05.9 Cough, unspecified
CPT/HCPCS: 36415; 82164; 82784; 82785; 86003; 86235; 94618; 99212

== ENCOUNTER 2021-06-18 08:45 | Outpatient (REF) | payer OTHER, SELFPAY ==
--- NOTE | 2021-06-18 14:36 | PFT_ITS ---
FLOWS: FEV1 51% of predicted at 1.23 L. FVC 45% of predicted at 1.37 L. FEV1 to FVC ratio of 0.90. No bronchodilator test performed. LUNG VOLUMES: Slow vital capacity 51% of predicted at 1.48 L. Expiratory reserve volume 49% of predicted at 0.42 L. Patient was unable to perform an FVC maneuvers despite several attempts due to chronic cough and that test was canceled. IMPRESSION: No obstructive ventilatory defect. Suggestion for underlying restrictive ventilatory defect. No bronchodilator testing was performed. Test was aborted secondary to persistent cough. Sai Yin MD AP/MODL / [id number]
== END 2021-06-18 08:46 | disposition home or self-care (01) ==
LOC: HO.RESP 08:45
PROVIDERS: PCP Internal Medicine; Visit Provider Hospitalist
DX: Z13.89 Encounter for screening for other disorder (principal)

== ENCOUNTER 2021-06-21 08:50 | Outpatient (REF) | payer OTHER, SELFPAY ==
--- NOTE | ~2021-06-21 | CT_ITS ---
EXAMINATION: CT CHEST WITHOUT CONTRAST CLINICAL INFORMATION: Pneumonia. Unspecified organism. COMPARISON: Chest x-ray 05/24/2021. CTA chest 05/24/2021. TECHNIQUE: Multidetector volumetric CT imaging of the chest was done. Axial MIP volume rendering provided. Sagittal and coronal reformatted images were obtained. This CT examination was performed using dose optimization techniques as appropriate, variously including the following: *Automated exposure control *Adjustment of mA and/or kV according to patient size (this includes techniques or standardized protocols for targeted exams where dose is matched to indication/reason for exam; i.e. 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 LUNGS: The lungs are well expanded with patchy ill-defined ground-glass and reticular linear opacities seen in both upper lobes, lower lobes, lingula and right middle lobe. There is mild bronchiolar prominence in both lower lobes. No consolidation, mass or mass effect seen. MEDIASTINUM: The thyroid lobes are symmetrical and normal. The central trachea and the bronchi are widely patent. Heart size and the great vessels are normal caliber. There is no pericardial effusion. No abnormal mediastinal lymph nodes. There is trace calcification of coronary arteries. No abnormal mediastinal lymph node seen. PLEURA: There is no pleural effusion. No pleural mass or thickening. AXILLA: Small scattered benign lymph nodes are seen in bilateral axilla. UPPER ABDOMEN: Visualized liver, spleen, pancreas and adrenal glands unremarkable. OSSEOUS STRUCTURES: No lytic or sclerotic process seen. There is mild ventral spondylosis. CT/CT chest wo con IMPRESSION: Diffuse bilateral reticular linear and ground-glass opacities most prominent in the subpleural locations of the lungs and likely the entire lower lungs. No consolidation. Differential diagnoses include inflammatory or infectious etiology including atypical/viral pneumonia. Similar findings were seen on the previous study 05/24/2021. There appears to be no change from previous exam. No focal consolidation seen. Fleischner guidelines were followed.
== END 2021-06-21 08:51 | disposition home or self-care (01) ==
LOC: HO.CT 08:50
PROVIDERS: PCP Internal Medicine; Visit Provider Hospitalist
DX: J18.9 Pneumonia, unspecified organism (principal)
CPT/HCPCS: 71250

== ENCOUNTER 2021-06-26 10:34 | Outpatient (REF) | payer OTHER, SELFPAY | END 2021-06-26 10:35 | disposition home or self-care (01) | LOC: HO.RESP 10:34 | PROVIDERS: PCP Internal Medicine; Visit Provider Hospitalist | DX: Z20.822 Contact with and (suspected) exposure to COVID-19 (principal); J84.9 Interstitial pulmonary disease, unspecified | CPT/HCPCS: 99212; U0003; U0005 ==

== ENCOUNTER 2021-07-06 09:36 | Outpatient (REF) | payer OTHER, SELFPAY ==
--- NOTE | ~2021-07-06 | XR_ITS ---
EXAMINATION: XR CHEST CLINICAL INFORMATION: Interstitial pulmonary disease COMPARISON: Chest CT 06/21/2021 and chest x-ray 05/26/2021 TECHNIQUE: 2 views of the chest were obtained. FINDINGS: The heart is normal in size. Mildly hypoinflated lungs. Diffuse interstitial opacities are again noted bilaterally, most prominently within the lower lobes. A small right-sided pneumothorax demonstrated. No gross pleural effusion. Possible postsurgical changes projecting over the lateral aspect of the lower right lung. XR/XR chest 2V IMPRESSION: Small right-sided pneumothorax. This Critical Result was discussed with Dr. Garrison at 2:55 PM on 07/06/2021 and it was ascertained that the content and urgency of the report was understood at the time of direct communication.
== END 2021-07-06 09:37 | disposition home or self-care (01) ==
LOC: HO.XRAY 09:36
PROVIDERS: Visit Provider Surgery
DX: J84.9 Interstitial pulmonary disease, unspecified (principal)
CPT/HCPCS: 71046

== ENCOUNTER 2021-07-06 10:23 | Outpatient (REF) | payer OTHER, SELFPAY ==
[2021-07-06 10:36] LABS: MANUAL DIFF FLAG NO
[2021-07-06 10:53] LABS: Basophils Absolute Auto 0.1 X10*3/uL (0.0-0.2); Basophils Percent Auto 0.6 % (0-2); Eosinophils Absolute Auto 0.2 X10*3/uL (0.0-0.4); Eosinophils Percent Auto 2.7 % (0-4); Imm Gran Abs Auto 0.12 X10*3/uL (0.00-0.03); Imm Gran Pct Auto 1.4 % (0.0-0.4); Lymphocytes Absolute Auto 2.7 X10*3/uL (1.2-4.9); Lymphocytes Percent Auto 31.2 % (20-40); Mean Corpuscular HGB Conc 33.3 g/dl (31.0-35.0); Mean Corpuscular Hemoglobin 29.4 pg (27.0-33.0); Mean Corpuscular Volume 88.2 fL (80.0-98.0); Mean Platelet Volume 10.6 fL (9.4-12.3); Monocytes Absolute Auto 0.6 X10*3/uL (0.1-1.2); Monocytes Percent Auto 7.5 % (2-11); Neutrophils Absolute Auto 4.8 x10*3/uL (2.0-8.3); Neutrophils Percent Auto 56.6 % (45-73); Platelet Count 325 X10*3/uL (160-400); Red Blood Count 4.76 X10*6/uL (4.20-5.50); Red Cell Distribution Width 12.9 % (11.0-16.0); White Blood Count 8.6 X10*3/uL (4.8-10.8)
[2021-07-06 11:19] LABS: Alanine Aminotransferase 19 U/L (0-31); Albumin Level 3.8 g/dL (3.5-5.0); Alkaline Phosphatase 112 U/L (39-117); Anion Gap 12 (12-20); Aspartate Amino Transferase 18 U/L (5-31); Bilirubin Direct < 0.2 mg/dL (0.0-0.5); Bilirubin Total 0.3 mg/dL (0.0-1.0); Blood Urea Nitrogen 19 mg/dL (9-16); Calcium 10.7 mg/dL (8.4-10.2); Carbon Dioxide 26 mmol/L (22-29); Chloride 102 mmol/L (96-108); Estimated Glomerular Filt Rate > 60; Glucose Random 112 mg/dL (60-115); Potassium 4.2 mmol/L (3.3-5.1); Sodium 136 mmol/L (135-145); Total Protein 6.7 g/dL (6.5-8.0)
[2021-07-06 11:46] LABS: Erythrocyte Sedimentation Rate 20 MM/HR (0-20)
== END 2021-07-06 10:24 | disposition home or self-care (01) ==
LOC: HO.LAB 10:23
PROVIDERS: Visit Provider Hospitalist
DX: J84.9 Interstitial pulmonary disease, unspecified (principal)
CPT/HCPCS: 36415; 80048; 80076; 85025; 85652

== ENCOUNTER → 2021-07-19 09:27 | Outpatient (BNVA) | payer OTHER, SELFPAY | PROVIDERS: PCP Internal Medicine; Visit Provider Hospitalist | DX: Z23 Encounter for immunization (principal); J84.9 Interstitial pulmonary disease, unspecified; J84.89 Other specified interstitial pulmonary diseases; J96.10 Chronic respiratory failure, unspecified whether with hypoxia or hypercapnia; R05.9 Cough, unspecified | CPT/HCPCS: 90471; 90732; 94618; 99212 ==

== ENCOUNTER 2021-08-23 09:25 | Outpatient (REF) | payer OTHER, SELFPAY ==
--- NOTE | ~2021-08-23 | XR_ITS ---
EXAMINATION: XR CHEST CLINICAL INFORMATION: Follow-up interstitial pulmonary disease. COMPARISON: Prior chest radiographs, most recently 07/06/2021; CT chest dated 06/21/2021. TECHNIQUE: Frontal and lateral views of the chest were obtained. FINDINGS: The heart, great vessels, pulmonary vasculature and mediastinum are stable. There is a persistent bilateral interstitial and alveolar pattern, with mid and lower lung field predominance. The chest radiographic appearance is stable from 07/06/2021. No new superimposed infiltrate or congestive heart failure is seen. There is no pleural effusion or pneumothorax. No acute osseous abnormality is seen. XR/XR chest 2V IMPRESSION: There is a continued stable appearance of bilateral interstitial and alveolar opacities, with a mid and lower lung field predominance. There is no new superimposed infiltrate or congestive heart failure. No pneumothorax or pleural effusion is presently seen.
[2021-08-23 10:10] LABS: MANUAL DIFF FLAG NO
[2021-08-23 11:10] LABS: Basophils Absolute Auto 0.1 X10*3/uL (0.0-0.2); Basophils Percent Auto 0.6 % (0-2); Eosinophils Absolute Auto 0.2 X10*3/uL (0.0-0.4); Eosinophils Percent Auto 1.2 % (0-4); Hematocrit 47.4 % (37.0-47.0); Hemoglobin 16.1 g/dl (12.0-16.0); Imm Gran Abs Auto 0.04 X10*3/uL (0.00-0.03); Imm Gran Pct Auto 0.3 % (0.0-0.4); Lymphocytes Absolute Auto 2.6 X10*3/uL (1.2-4.9); Lymphocytes Percent Auto 20.3 % (20-40); Mean Corpuscular Hemoglobin 29.9 pg (27.0-33.0); Mean Corpuscular Volume 87.9 fL (80.0-98.0); Mean Platelet Volume 12.1 fL (9.4-12.3); Monocytes Absolute Auto 0.9 X10*3/uL (0.1-1.2); Monocytes Percent Auto 7.2 % (2-11); Neutrophils Absolute Auto 8.9 x10*3/uL (2.0-8.3); Neutrophils Percent Auto 70.4 % (45-73); Platelet Count 232 X10*3/uL (160-400); Red Blood Count 5.39 X10*6/uL (4.20-5.50); Red Cell Distribution Width 12.8 % (11.0-16.0); White Blood Count 12.6 X10*3/uL (4.8-10.8)
[2021-08-23 12:11] LABS: Alanine Aminotransferase 23 U/L (0-31); Albumin Level 4.1 g/dL (3.5-5.0); Alkaline Phosphatase 112 U/L (39-117); Anion Gap 18 (12-20); Aspartate Amino Transferase 25 U/L (5-31); Bilirubin Direct < 0.2 mg/dL (0.0-0.5); Bilirubin Total 0.5 mg/dL (0.0-1.0); Blood Urea Nitrogen 16 mg/dL (9-16); Calcium 11.4 mg/dL (8.4-10.2); Carbon Dioxide 24 mmol/L (22-29); Chloride 99 mmol/L (96-108); Estimated Glomerular Filt Rate > 60; Glucose Random 171 mg/dL (60-115); Potassium 3.9 mmol/L (3.3-5.1); Sodium 137 mmol/L (135-145); Total Protein 7.3 g/dL (6.5-8.0)
[2021-08-23 12:21] LABS: Erythrocyte Sedimentation Rate 12 MM/HR (0-20)
== END 2021-08-23 09:26 | disposition home or self-care (01) ==
LOC: HO.XRAY 09:25
PROVIDERS: PCP Internal Medicine; Visit Provider Hospitalist
DX: J45.901 Unspecified asthma with (acute) exacerbation (principal); J84.89 Other specified interstitial pulmonary diseases; J96.10 Chronic respiratory failure, unspecified whether with hypoxia or hypercapnia; R05.9 Cough, unspecified; Z79.899 Other long term (current) drug therapy
CPT/HCPCS: 36415; 71046; 80048; 80076; 85025; 85652; 99212

== ENCOUNTER 2021-08-28 18:03 | Outpatient (REF) | payer OTHER, SELFPAY | END 2021-08-28 18:04 | disposition home or self-care (01) | LOC: HO.LNP 18:03 | PROVIDERS: Visit Provider Hospitalist | DX: J18.9 Pneumonia, unspecified organism (principal) | CPT/HCPCS: 87070; 87205 ==

== ENCOUNTER → 2021-08-30 13:07 | Outpatient (BNVA) | payer OTHER, SELFPAY | PROVIDERS: PCP Internal Medicine; Referring Provider Hospitalist; Visit Provider Internal Medicine | DX: R07.2 Precordial pain (principal); J84.9 Interstitial pulmonary disease, unspecified; J96.10 Chronic respiratory failure, unspecified whether with hypoxia or hypercapnia; Z99.81 Dependence on supplemental oxygen | CPT/HCPCS: 93005; 99202 ==

== ENCOUNTER 2021-10-04 08:37 | Outpatient (REF) | payer OTHER, SELFPAY ==
--- NOTE | ~2021-10-04 | XR_ITS ---
EXAMINATION: XR CHEST CLINICAL INFORMATION: Interstitial pulmonary disease COMPARISON: Chest radiograph from 08/23/2021 TECHNIQUE: 2 views of the chest were obtained. FINDINGS: Bilateral low lung volumes. Redemonstration of interstitial and alveolar prominence most predominant in the bilateral mid to lower lung cabrales. No pneumothorax. Trachea is midline. Cardiac mediastinal silhouette is stable. No large pleural effusion. Degenerative changes of the thoracolumbar spine. XR/XR chest 2V IMPRESSION: 1. Bilateral low lung volumes. 2. Redemonstration of interstitial and alveolar prominence most predominant in the bilateral mid to lower lung cabrales.
== END 2021-10-04 08:38 | disposition home or self-care (01) ==
LOC: HO.XRAY 08:37
PROVIDERS: PCP Internal Medicine; Visit Provider Hospitalist
DX: R07.9 Chest pain, unspecified (principal); J84.89 Other specified interstitial pulmonary diseases; J84.9 Interstitial pulmonary disease, unspecified; J96.10 Chronic respiratory failure, unspecified whether with hypoxia or hypercapnia; J45.909 Unspecified asthma, uncomplicated; R05.9 Cough, unspecified
CPT/HCPCS: 71046; 99212

== ENCOUNTER → 2021-10-15 10:15 | Outpatient (REF) | payer OTHER, SELFPAY ==
--- NOTE | 2021-10-15 10:18 | CA_ITS ---
Transthoracic Echocardiogram Patient (Last, First, Middle): Patience Singletary I Gender: Female Date of : 1965 Age: 56 Procedure Date: 10/15/2021 Procedure Type: Transthoracic Echocardiogram Location: OP Height: 154.94 cm Weight: 77.11 kg BSA: 1.76 m2 Heart Rate: bpm BP: 112 / 89 mmHg Type Copyist: SB Referring MD: Christopher Chan MD Symptoms: R07.9 - Chest pain, unspecified Study Quality: Adequate ECG Rhythm: Sinus Conclusions: - The left ventricular systolic function is normal. The calculated ejection fraction is 65% by biplane method. 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 No visible thrombus. - There is mildly decreased right ventricular systolic function. - No obvious valvular pathology seen on this study. Findings Procedure Information Contrast agent, definity, is being given per protocol without apparent complications. Left Ventricle Normal left ventricular cavity size. The left ventricular systolic function is normal. The calculated ejection fraction is 65% by biplane method. There is evidence of regional wall motion abnormalities. Evidence suggests grade I (mild) diastolic dysfunction. 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 No visible thrombus. Right Ventricle Normal right ventricular cavity size. There is mildly decreased right ventricular systolic function. Atria Both atria are normal in size. Aortic Valve There is a normal trileaflet aortic valve. There is no aortic valve stenosis. There is no aortic valve regurgitation. Mitral Valve The mitral valve appears normal. There is no mitral valve regurgitation. There is no mitral valve stenosis. Pulmonic Valve The pulmonic valve is likely normal. Tricuspid Valve There is trace tricuspid valve regurgitation. The pulmonary artery systolic pressure is normal. Great Vessels The asc aorta is normal in size. Venous The inferior vena cava is normal in size and collapses greater than 50% with inspiration. Pericardium/Pleural There is no evidence of pericardial effusion. Prior Study Comparison Changes noted compared to prior study dated: 10/07/2005. See comment on apex. Recommendations, Care & Conclusions No obvious valvular pathology seen on this study. Measurements 2D Linear Measurements IVSd: 1.36 0.6-0.9/0.6-1.0 cm LVIDd: 3.80 3.9-5.3/4.2-5.9 cm LVIDd Index: 2.16 2.4-3.2/2.2-3.1 cm/m2 LVIDs: 2.65 2.0-3.6 cm LVPWd: 1.23 0.7-1.1 cm Ao Root: 2.20 2.1-3.5 cm LA Diam: 2.60 2.7-3.8/3.0-4.0 cm LAIDs Index: 1.48 1.5-2.3 cm/m2 LV Mass: 214.29 67-162/88-224 g LV Mass Index: 121.75 43-95/49-115 g/m2 LVOT Diam: 1.90 3.0+(-)1.3 cm 2D Systolic Function EF 4C: 60.30 >55% EF 2C: 67.50 >55% EF BiP: 64.50 >55% Mitral Valve MV Pk E: 0.51 MV PK A: 0.66 MV Decel Time: 200.00 E/A: 0.80 E'Lateral: 5.34 E'Medial: 4.29 E/E' Med: 12.00 E/E' Lat: 9.60 PHT: 58.00 MVA PHT: 3.79 Decel [place]: 2.58 Aortic Valve AoV Pk Romulo: 1.26 AoV Mn Romulo: 0.90 AoV VTI: 0.23 AoV Pk Grad: 6.00 Aov Mn Grad: 4.00 VINCENT Cont.VTI: 2.23 LVOT LVOT Pk Romulo: 0.90 LVOT Mn Romulo: 0.67 LVOT VTI: 0.18 LVOT Pk Grad: 3.00 LVOT Mn Grad: 2.00 LVOT Diam: 1.90 LVOT Area: 2.84 Diastolic Function MV Pk E: 0.51 MV Pk A: 0.66 E/A: 0.80 E'Medial: 4.29 E/E' Med: 12.00 E' Laterial: 5.34 E/E' Lat: 9.60 Right Ventricle TAPSE (mm): 15.10 TVS' Romulo: 10.60 Tricuspid Valve TR Pk Romulo: 2.18 TR Pk Grad: 19.00 RA Press: 3.00 RVSP: 22.00 Great Vessels Aorta Ao Root-2D: 2.20 2.0-3.7 cm Sinus of Valsalva: 2.20 2.0-3.[address] [place]: 2.20 1.7-3.4 cm Ao Asc: 3.40 2.1-3.4 cm Pulmonary Valve PV Pk Romulo: 0.79 Peak PV Grad: 3.00 Updated in Other Vendor System with Status of Final Christopher Chan MD electronically signed on 10/16/2021 12:24:03 PM with status of Final
== END ==
LOC: HO.CARD 10:15
PROVIDERS: PCP Internal Medicine; Visit Provider Internal Medicine
DX: R07.9 Chest pain, unspecified (principal)
CPT/HCPCS: 93306; Q9957

== ENCOUNTER → 2021-10-16 10:53 | Outpatient (REF) | payer OTHER, SELFPAY ==
--- NOTE | 2021-10-16 10:57 | CA_ITS ---
Acquisition Time: 2021-10-16 11:09:47 Total Exercise Time: 00:15:18 Test Indications: CP, SOB Medications: SEE CHART Protocol: DOBUTAMINE Max HR: 144 BPM 87% of Pred: 165 BPM Max BP: 106/064 mmHG Max Work Load: 1.0 METS Pharmacological stress test with Dobutamine infusion per protocol, to max of 20mcg/kg/min with that dose held due a drop in BP from high of 106/64, down to 92/58, with mild sob and intermittent cough during test, no chest discomfort, without arrythmia, with nondiagnostic EKG for ischemia due to baseline abnormality, however there is ST depressions noted inferiorly. Echo images obtained by tech at rest, mid test and at peak heart rate, 86% MPHR. Pt was recovered for 16 min and EKGs greadually returned to baseline. Condition stable and test ended. Test reviewed with Dr Chan. Referred By: Christopher Chan Overread By: ERIKA BEST
== END ==
LOC: HO.CARD 10:53
PROVIDERS: PCP Internal Medicine; Visit Provider Internal Medicine
DX: R07.2 Precordial pain (principal); J84.9 Interstitial pulmonary disease, unspecified; J96.10 Chronic respiratory failure, unspecified whether with hypoxia or hypercapnia
CPT/HCPCS: 93351; J1250; Q9957

== ENCOUNTER 2021-10-25 08:13 | Outpatient (REF) | payer OTHER, SELFPAY ==
[2021-10-25 09:24] LABS: Hematocrit 44.4 % (37.0-47.0); Hemoglobin 14.9 g/dl (12.0-16.0); Mean Corpuscular HGB Conc 33.6 g/dl (31.0-35.0); Mean Corpuscular Hemoglobin 29.8 pg (27.0-33.0); Mean Corpuscular Volume 88.8 fL (80.0-98.0); Platelet Count 217 X10*3/uL (160-400); Red Cell Distribution Width 12.7 % (11.0-16.0); White Blood Count 5.9 X10*3/uL (4.8-10.8)
[2021-10-25 09:33] LABS: Prothrombin Time 11.1 SEC (9.9-13.0)
[2021-10-25 09:52] LABS: Anion Gap 14 (12-20); Blood Urea Nitrogen 16 mg/dL (9-16); Carbon Dioxide 24 mmol/L (22-29); Chloride 101 mmol/L (96-108); Estimated Glomerular Filt Rate > 60; Glucose Random 114 mg/dL (60-115); Potassium 4.4 mmol/L (3.3-5.1); Sodium 135 mmol/L (135-145)
[2021-10-25 10:04] LABS: Calcium 11.3 mg/dL (8.4-10.2)
== END 2021-10-25 08:14 | disposition home or self-care (01) ==
LOC: HO.LAB 08:13
PROVIDERS: PCP Internal Medicine; Referring Provider Internal Medicine; Visit Provider Internal Medicine
DX: R07.2 Precordial pain (principal); J84.9 Interstitial pulmonary disease, unspecified; J96.10 Chronic respiratory failure, unspecified whether with hypoxia or hypercapnia
CPT/HCPCS: 36415; 80048; 85027; 85610; 99212

== ENCOUNTER → 2021-11-22 13:22 | Outpatient (BNVA) | payer OTHER, SELFPAY | PROVIDERS: PCP Internal Medicine; Referring Provider Internal Medicine; Visit Provider Nurse Practitioner Family | DX: R07.2 Precordial pain (principal); J96.10 Chronic respiratory failure, unspecified whether with hypoxia or hypercapnia; J84.9 Interstitial pulmonary disease, unspecified; Z98.890 Other specified postprocedural states | CPT/HCPCS: 99212 ==

== ENCOUNTER 2021-12-11 08:11 | Outpatient (REF) | payer OTHER, SELFPAY ==
[2021-12-11 09:10] LABS: Estimated Average Glucose 123 mg/dL; Hemoglobin A1C 151.0522 umol/L; Hemoglobin A1c % 5.9 %
[2021-12-11 10:04] LABS: Alanine Aminotransferase 18 U/L (0-31); Albumin Level 4.2 g/dL (3.5-5.0); Alkaline Phosphatase 85 U/L (39-117); Anion Gap 14 (12-20); Aspartate Amino Transferase 17 U/L (5-31); Bilirubin Total 0.4 mg/dL (0.0-1.0); Blood Urea Nitrogen 14 mg/dL (9-16); Carbon Dioxide 24 mmol/L (22-29); Chloride 102 mmol/L (96-108); Cholesterol 268 mg/dL; Estimated Glomerular Filt Rate > 60; Glucose Random 114 mg/dL (60-115); HDL Cholesterol 50 mg/dL; LDL Cholesterol Calculated 141 mg/dl; Potassium 3.9 mmol/L (3.3-5.1); Sodium 136 mmol/L (135-145); Total Protein 6.7 g/dL (6.5-8.0); Triglycerides 387 mg/dL
[2021-12-11 10:21] LABS: Thyroid Stimulating Hormone 1.13 uIU/mL (0.32-4.0)
== END 2021-12-11 08:12 | disposition home or self-care (01) ==
LOC: HO.LAB 08:11
PROVIDERS: PCP Internal Medicine; Visit Provider Internal Medicine
DX: J84.89 Other specified interstitial pulmonary diseases (principal); J96.10 Chronic respiratory failure, unspecified whether with hypoxia or hypercapnia; J45.909 Unspecified asthma, uncomplicated; R09.02 Hypoxemia; E03.8 Other specified hypothyroidism; E11.9 Type 2 diabetes mellitus without complications; E78.2 Mixed hyperlipidemia; I10 Essential (primary) hypertension
CPT/HCPCS: 36415; 80053; 80061; 83036; 84443; 99212

== ENCOUNTER → 2022-01-23 08:06 | Outpatient (REF) | payer OTHER, SELFPAY ==
--- NOTE | 2022-01-23 08:09 | CA_ITS ---
Transthoracic Echocardiogram Patient (Last, First, Middle): Patience Singletary I Gender: Female Date of : 1965 Age: 56 Procedure Date: 01/23/2022 Procedure Type: Transthoracic Echocardiogram Location: OP Height: 154.94 cm Weight: kg BP: 118 / 601 mmHg Painting Instructor: KUSH/MARCO Referring MD: Pilar Mccullough MD Symptoms: J84.10 PULMONARY FIBROISIS R06.00 EXERTIONAL DYSPNEA Study Quality: Fair ECG Rhythm: Sinus Conclusions: - The left ventricular systolic function is normal. The calculated ejection fraction is 64% by biplane method. - There is mildly decreased right ventricular systolic function. - No obvious valvular pathology seen on this study. Findings Procedure Information Contrast agent, definity, is being given per protocol without apparent complications. Left Ventricle Normal left ventricular cavity size. There is mildly increased left ventricular wall thickness. The left ventricular systolic function is normal. The calculated ejection fraction is 64% by biplane method. There is no evidence of regional wall motion abnormalities. Evidence suggests grade I (mild) diastolic dysfunction. Right Ventricle Normal right ventricular cavity size. There is mildly decreased right ventricular systolic function. Atria Both atria are normal in size. Aortic Valve There is no aortic valve stenosis. There is trace (trivial) aortic valve regurgitation. Mitral Valve The mitral valve appears normal. There is no mitral valve regurgitation. There is no mitral valve stenosis. Pulmonic Valve The pulmonic valve is likely normal. Tricuspid Valve Normal tricuspid valve structure. There is no tricuspid valve regurgitation. The pulmonary artery systolic pressure is normal. Great Vessels The asc aorta is normal in size. Venous The inferior vena cava is normal in size and collapses greater than 50% with inspiration. Pericardium/Pleural There is no evidence of pericardial effusion. Prior Study Comparison Changes noted compared to prior study dated: 10/15/2021. Possible apical aneurysm previously described no longer seen. Could have been artifact. Recommendations, Care & Conclusions No obvious valvular pathology seen on this study. Measurements 2D Linear Measurements IVSd: 1.07 0.6-0.9/0.6-1.0 cm LVIDd: 3.86 3.9-5.3/4.2-5.9 cm LVIDs: 2.15 2.0-3.6 cm LVPWd: 1.13 0.7-1.1 cm Ao Root: 2.50 2.1-3.5 cm LA Diam: 3.00 2.7-3.8/3.0-4.0 cm LV Mass: 171.63 67-162/88-224 g LVOT Diam: 1.80 3.0+(-)1.3 cm 2D Systolic Function EF 4C: 71.50 >55% EF 2C: 54.50 >55% EF BiP: 63.90 >55% Mitral Valve MV Pk E: 0.61 MV PK A: 0.66 MV Decel Time: 220.00 E/A: 0.90 E'Lateral: 5.77 E'Medial: 5.33 E/E' Med: 11.50 E/E' Lat: 10.60 PHT: 64.00 MVA PHT: 3.44 Decel [place]: 2.79 Aortic Valve AoV Pk Romulo: 1.28 AoV Mn Romulo: 0.90 AoV VTI: 0.30 AoV Pk Grad: 7.00 Aov Mn Grad: 4.00 VINCENT Cont.VTI: 1.71 LVOT LVOT Pk Romulo: 0.88 LVOT Mn Romulo: 0.60 LVOT VTI: 0.20 LVOT Pk Grad: 3.00 LVOT Mn Grad: 2.00 LVOT Diam: 1.80 LVOT Area: 2.54 Diastolic Function MV Pk E: 0.61 MV Pk A: 0.66 E/A: 0.90 E'Medial: 5.33 E/E' Med: 11.50 E' Laterial: 5.77 E/E' Lat: 10.60 Right Ventricle TAPSE (mm): 16.00 TVS' Romulo: 8.00 Tricuspid Valve TR Pk Romulo: 1.85 TR Pk Grad: 14.00 RA Press: 3.00 RVSP: 17.00 Great Vessels Aorta Ao Root-2D: 2.50 2.0-3.7 cm Ao Asc: 3.50 2.1-3.4 cm Pulmonary Valve PV Pk Romulo: 0.66 Peak PV Grad: 2.00 Updated in Other Vendor System with Status of Final Christopher Chan MD electronically signed on 01/25/2022 12:03:49 PM with status of Final
== END ==
LOC: HO.CARD 08:06
PROVIDERS: Visit Provider Internal Medicine Pulmonary Disease
DX: R06.00 Dyspnea, unspecified (principal); J84.10 Pulmonary fibrosis, unspecified
CPT/HCPCS: 93306; Q9957

== ENCOUNTER → 2022-02-14 09:00 | Outpatient (BNVA) | payer OTHER, SELFPAY | PROVIDERS: PCP Internal Medicine; Referring Provider Internal Medicine; Visit Provider Internal Medicine | DX: R07.2 Precordial pain (principal); J84.9 Interstitial pulmonary disease, unspecified; J96.10 Chronic respiratory failure, unspecified whether with hypoxia or hypercapnia | CPT/HCPCS: 99212 ==

== ENCOUNTER → 2022-02-26 10:59 | Outpatient (BNVA) | payer OTHER, SELFPAY | PROVIDERS: PCP Internal Medicine; Visit Provider Hospitalist | DX: Z23 Encounter for immunization (principal); J84.9 Interstitial pulmonary disease, unspecified; J84.89 Other specified interstitial pulmonary diseases; J96.10 Chronic respiratory failure, unspecified whether with hypoxia or hypercapnia; J45.41 Moderate persistent asthma with (acute) exacerbation | CPT/HCPCS: 90471; 90686; 99212 ==

== ENCOUNTER 2022-03-20 09:18 | Outpatient (REF) | payer OTHER, SELFPAY ==
[2022-03-20 09:42] LABS: MANUAL DIFF FLAG NO
[2022-03-20 10:24] LABS: Basophils Percent Auto 0.7 % (0-2); Eosinophils Absolute Auto 0.2 X10*3/uL (0.0-0.4); Hematocrit 46.8 % (37.0-47.0); Hemoglobin 15.6 g/dl (12.0-16.0); Imm Gran Abs Auto 0.01 X10*3/uL (0.00-0.03); Imm Gran Pct Auto 0.2 % (0.0-0.4); Lymphocytes Absolute Auto 1.9 X10*3/uL (1.2-4.9); Lymphocytes Percent Auto 32.7 % (20-40); Mean Corpuscular HGB Conc 33.3 g/dl (31.0-35.0); Mean Corpuscular Hemoglobin 29.5 pg (27.0-33.0); Mean Corpuscular Volume 88.6 fL (80.0-98.0); Mean Platelet Volume 12.7 fL (9.4-12.3); Monocytes Absolute Auto 0.6 X10*3/uL (0.1-1.2); Monocytes Percent Auto 10.6 % (2-11); Neutrophils Percent Auto 52.8 % (45-73); Platelet Count 207 X10*3/uL (160-400); Red Blood Count 5.28 X10*6/uL (4.20-5.50); Red Cell Distribution Width 12.5 % (11.0-16.0); White Blood Count 5.7 X10*3/uL (4.8-10.8)
[2022-03-20 10:52] LABS: Estimated Average Glucose 120 mg/dL; Hemoglobin A1C 150.7199 umol/L; Hemoglobin A1c % 5.8 %
[2022-03-20 10:56] LABS: Alanine Aminotransferase 21 U/L (0-31); Albumin Level 4.4 g/dL (3.5-5.0); Alkaline Phosphatase 100 U/L (39-117); Anion Gap 16 (12-20); Aspartate Amino Transferase 22 U/L (5-31); Bilirubin Total 0.4 mg/dL (0.0-1.0); Blood Urea Nitrogen 13 mg/dL (9-16); Calcium 11.3 mg/dL (8.4-10.2); Carbon Dioxide 28 mmol/L (22-29); Chloride 100 mmol/L (96-108); Cholesterol 321 mg/dL; Estimated Glomerular Filt Rate > 60; Glucose Random 114 mg/dL (60-115); HDL Cholesterol 43 mg/dL; Phosphorus 3.6 mg/dL (2.7-4.5); Potassium 4.6 mmol/L (3.3-5.1); Sodium 139 mmol/L (135-145); Total Protein 7.2 g/dL (6.5-8.0); Triglycerides 509 mg/dL
[2022-03-20 11:31] LABS: Microalbum/Creatinine Ratio Ur 7.7 ug/mg cr
[2022-03-20 11:47] LABS: Vitamin B12 1843 pg/mL (200-900)
[2022-03-21 14:57] LABS: PTHI 117 pg/mL (16-77)
== END 2022-03-20 09:19 | disposition home or self-care (01) ==
LOC: HO.LAB 09:18
PROVIDERS: PCP Internal Medicine; Visit Provider Internal Medicine
DX: R07.89 Other chest pain (principal); E83.52 Hypercalcemia; J84.9 Interstitial pulmonary disease, unspecified; R06.02 Shortness of breath
CPT/HCPCS: 36415; 80053; 80061; 82043; 82306; 82607; 83036; 83970; 84100; 85025

== ENCOUNTER → 2022-03-22 09:52 | Outpatient (BNVA) | payer OTHER, SELFPAY | PROVIDERS: PCP Internal Medicine; Visit Provider Hospitalist | DX: J84.9 Interstitial pulmonary disease, unspecified (principal); J18.0 Bronchopneumonia, unspecified organism; J84.89 Other specified interstitial pulmonary diseases; J96.10 Chronic respiratory failure, unspecified whether with hypoxia or hypercapnia; R05.9 Cough, unspecified; J45.909 Unspecified asthma, uncomplicated | CPT/HCPCS: 99212 ==

== ENCOUNTER → 2022-04-10 10:43 | Outpatient (REF) | payer OTHER, SELFPAY ==
--- NOTE | ~2022-04-10 | NM_ITS ---
EXAMINATION: NM PARATHYROID SCAN CLINICAL INFORMATION: Increased PTH and increased calcium. COMPARISON: None TECHNIQUE: A sestamibi radionuclide study of the thyroid bed region and upper chest in multiple projections was performed immediately following the intravenous administration of 30 mCi Tc-99m sestamibi. Repeat imaging was performed 2 hours later. The patient is on thyroid medications. The primary care physician did not want the patient to come off medications. Accordingly, dual tracer (iodine and technetium) could not be used. FINDINGS: Technetium 99m sestamibi images demonstrate homogeneous thyroid activity. There is subtle focal increased radiotracer uptake at the inferior pole of the right lobe of the thyroid gland. On delayed images, focal increased radiotracer activity at the inferior pole persists. Differential diagnostic consideration would include thyroid versus parathyroid nodule. Follow-up ultrasound of the soft tissue neck is recommended for further clarification. NM/NM parathyroid IMPRESSION: Single radiotracer dual phase imaging of the parathyroid gland was performed showing subtle focal increased radiotracer uptake near the inferior pole of the right lobe of the thyroid gland, may represent thyroid versus parathyroid disease. Follow-up ultrasound of the soft tissue neck is recommended for further clarification.
== END ==
LOC: HO.NUCMED 10:43
PROVIDERS: PCP Internal Medicine; Visit Provider Internal Medicine
DX: E21.0 Primary hyperparathyroidism (principal)
CPT/HCPCS: 78070; A9500

== ENCOUNTER 2022-06-04 12:38 | Outpatient (REF) | payer OTHER, SELFPAY ==
--- NOTE | ~2022-06-04 | MM_ITS ---
EXAMINATION: MM DIAGNOSTIC DIGITAL BREAST TOMOSYNTHESIS, BILATERAL CLINICAL INFORMATION: Due for yearly. At time of appointment, patient notes recent outside chest CT performed at [facility] 05/14/2022 demonstrating a 1.4 cm asymmetric lesion left breast. Correlation with mammography recommended. No palpable mass. No discharge. Patient has prior history right stereotactic biopsy mid upper outer quadrant, focal ADH with subsequent excision 07/21/2018. COMPARISON: Mammography: 05/31/2021, 05/30/2020, 07/21/2018, 04/27/2018, 09/16/2017. TECHNIQUE: Digital breast tomosynthesis is performed in both the craniocaudal and mediolateral oblique views along with computer-aided detection (CAD). Synthesized 2D images are generated from the tomosynthesis. FINDINGS: There are scattered areas of fibroglandular density (ACR BI-RADS breast composition Category b). There are no significant masses, abnormal calcifications, or other abnormalities. Parenchymal pattern is similar to prior studies. There is no developing density or interval mass or architectural abnormality. No abnormal calcifications. The axilla and skin contours are unremarkable. Results are discussed with the patient at time of visit. Radiology department staff will attempt to retrieve prior outside CT chest to allow for direct comparison. MM/MM tomosynthesis diagnostic BI IMPRESSION: -No mammographic evidence of malignancy. -No significant changes from prior studies. ASSESSMENT: BI-RADS 1: Negative RECOMMENDATION: -Routine annual mammography screening. -Radiology department staff will attempt to retrieve prior outside CT chest to allow for additional comparison. This patient's information was entered into a reminder system with a target due date for their next mammogram.
== END 2022-06-04 12:39 | disposition home or self-care (01) ==
LOC: HO.MAMMO 12:38
PROVIDERS: PCP Internal Medicine; Visit Provider Internal Medicine
DX: N64.89 Other specified disorders of breast (principal)
CPT/HCPCS: 77062; 77066

== ENCOUNTER 2022-06-14 09:16 | Outpatient (REF) | payer OTHER, SELFPAY ==
[2022-06-14 11:11] LABS: Estimated Average Glucose 114 mg/dL; Hemoglobin A1c % 5.6 %
[2022-06-14 11:21] LABS: Alanine Aminotransferase 19 U/L (0-31); Albumin Level 4.3 g/dL (3.5-5.0); Alkaline Phosphatase 97 U/L (39-117); Anion Gap 13 (12-20); Aspartate Amino Transferase 21 U/L (5-31); Bilirubin Total 0.6 mg/dL (0.0-1.0); Blood Urea Nitrogen 13 mg/dL (9-16); Carbon Dioxide 28 mmol/L (22-29); Chloride 101 mmol/L (96-108); Cholesterol 294 mg/dL; Estimated Glomerular Filt Rate > 60; Glucose Random 103 mg/dL (60-115); HDL Cholesterol 56 mg/dL; LDL Cholesterol Calculated 169 mg/dl; Potassium 3.8 mmol/L (3.3-5.1); Sodium 138 mmol/L (135-145); Total Protein 7.2 g/dL (6.5-8.0); Triglycerides 345 mg/dL
[2022-06-14 11:38] LABS: Thyroid Stimulating Hormone 1.34 uIU/mL (0.32-4.0)
== END 2022-06-14 09:17 | disposition home or self-care (01) ==
LOC: HO.LAB 09:16
PROVIDERS: PCP Internal Medicine; Visit Provider Internal Medicine
DX: Z00.01 Encounter for general adult medical examination with abnormal findings (principal); E03.9 Hypothyroidism, unspecified; E11.9 Type 2 diabetes mellitus without complications; E21.0 Primary hyperparathyroidism; E78.49 Other hyperlipidemia; J84.9 Interstitial pulmonary disease, unspecified; J84.89 Other specified interstitial pulmonary diseases; J96.10 Chronic respiratory failure, unspecified whether with hypoxia or hypercapnia; R05.9 Cough, unspecified; J45.909 Unspecified asthma, uncomplicated
CPT/HCPCS: 36415; 80053; 80061; 83036; 84443; 94618; 99212

== ENCOUNTER 2022-09-12 08:36 | Outpatient (REF) | payer OTHER, SELFPAY ==
[2022-09-12 09:27] LABS: Estimated Average Glucose 117 mg/dL; Hemoglobin A1c % 5.7 %
[2022-09-12 09:28] LABS: Alanine Aminotransferase 18 U/L (0-31); Albumin Level 4.3 g/dL (3.5-5.0); Alkaline Phosphatase 70 U/L (39-117); Anion Gap 14 (12-20); Aspartate Amino Transferase 22 U/L (5-31); Blood Urea Nitrogen 13 mg/dL (9-16); Calcium 11.3 mg/dL (8.4-10.2); Carbon Dioxide 29 mmol/L (22-29); Chloride 98 mmol/L (96-108); Cholesterol 121 mg/dL; Estimated Glomerular Filt Rate > 60; Glucose Random 118 mg/dL (60-115); HDL Cholesterol 46 mg/dL; LDL Cholesterol Calculated 42 mg/dl; Potassium 3.7 mmol/L (3.3-5.1); Sodium 137 mmol/L (135-145); Total Protein 6.7 g/dL (6.5-8.0); Triglycerides 165 mg/dL
== END 2022-09-12 08:37 | disposition home or self-care (01) ==
LOC: HO.LAB 08:36
PROVIDERS: PCP Internal Medicine; Visit Provider Internal Medicine
DX: E03.9 Hypothyroidism, unspecified (principal); E11.9 Type 2 diabetes mellitus without complications; E78.2 Mixed hyperlipidemia; I10 Essential (primary) hypertension
CPT/HCPCS: 36415; 80053; 80061; 83036

== ENCOUNTER 2022-11-01 10:20 | Outpatient (REF) | payer OTHER, SELFPAY ==
[2022-11-01 12:28] LABS: Basophils Absolute Auto 0.1 X10*3/uL (0.0-0.2); Basophils Percent Auto 0.7 % (0-2); Hemoglobin 15.1 g/dl (12.0-16.0); SCAN SMEAR FLAG 1
[2022-11-01 12:30] LABS: Eosinophils Absolute Auto 0.1 X10*3/uL (0.0-0.4); Eosinophils Percent Auto 0.9 % (0-4); Hematocrit 45.9 % (37.0-47.0); Imm Gran Abs Auto 0.02 X10*3/uL (0.00-0.03); Imm Gran Pct Auto 0.2 % (0.0-0.4); Lymphocytes Absolute Auto 2.8 X10*3/uL (1.2-4.9); Lymphocytes Percent Auto 33.6 % (20-40); Mean Corpuscular HGB Conc 32.9 g/dl (31.0-35.0); Mean Corpuscular Hemoglobin 29.4 pg (27.0-33.0); Mean Corpuscular Volume 89.3 fL (80.0-98.0); Mean Platelet Volume 13.1 fL (9.4-12.3); Monocytes Absolute Auto 0.6 X10*3/uL (0.1-1.2); Monocytes Percent Auto 6.7 % (2-11); Neutrophils Absolute Auto 4.7 x10*3/uL (2.0-8.3); Neutrophils Percent Auto 57.9 % (45-73); Platelet Count 190 X10*3/uL (160-400); Red Blood Count 5.14 X10*6/uL (4.20-5.50); Red Cell Distribution Width 12.9 % (11.0-16.0); White Blood Count 8.2 X10*3/uL (4.8-10.8)
[2022-11-01 12:45] LABS: MANUAL DIFF FLAG NO; PLT ABN DIST 1
[2022-11-01 13:19] LABS: Erythrocyte Sedimentation Rate 9 MM/HR (0-20)
[2022-11-01 13:45] LABS: Alanine Aminotransferase 13 U/L (0-31); Albumin Level 4.4 g/dL (3.5-5.0); Alkaline Phosphatase 87 U/L (39-117); Anion Gap 16 (12-20); Aspartate Amino Transferase 16 U/L (5-31); Bilirubin Direct 0.1 mg/dL (0.0-0.5); Bilirubin Total 0.6 mg/dL (0.0-1.0); Blood Urea Nitrogen 13 mg/dL (9-16); Calcium 11.8 mg/dL (8.4-10.2); Carbon Dioxide 26 mmol/L (22-29); Chloride 100 mmol/L (96-108); Estimated Glomerular Filt Rate > 60; Glucose Random 100 mg/dL (60-115); Potassium 3.7 mmol/L (3.3-5.1); Sodium 138 mmol/L (135-145); Total Protein 7.2 g/dL (6.5-8.0)
[2022-11-01 13:46] LABS: TSH reflex Free T4 1.01 uIU/mL (0.32-4.0)
[2022-11-01 13:56] LABS: Cortisol Random 9.9 ug/dL
== END 2022-11-01 10:21 | disposition home or self-care (01) ==
LOC: HO.LAB 10:20
PROVIDERS: PCP Internal Medicine; Visit Provider Hospitalist
DX: J84.9 Interstitial pulmonary disease, unspecified (principal); G47.33 Obstructive sleep apnea (adult) (pediatric); J96.10 Chronic respiratory failure, unspecified whether with hypoxia or hypercapnia; R05.9 Cough, unspecified; J45.909 Unspecified asthma, uncomplicated
CPT/HCPCS: 36415; 80048; 80076; 82533; 84443; 85025; 85652; 99212

== ENCOUNTER → 2022-12-11 10:51 | Outpatient (REF) | payer OTHER, SELFPAY | LOC: HO.SL 10:51 | PROVIDERS: PCP Internal Medicine; Visit Provider Hospitalist | DX: G47.33 Obstructive sleep apnea (adult) (pediatric) (principal) | CPT/HCPCS: 95806 ==

== ENCOUNTER → 2022-12-11 10:58 | Outpatient (BNV) | payer OTHER, SELFPAY | PROVIDERS: PCP Internal Medicine; Visit Provider Internal Medicine | DX: R06.83 Snoring (principal) | CPT/HCPCS: 95806 ==

== ENCOUNTER 2023-01-16 08:09 | Outpatient (REF) | payer OTHER, SELFPAY ==
[2023-01-16 09:06] LABS: Estimated Average Glucose 105 mg/dL; Hemoglobin A1c % 5.3 %
[2023-01-16 09:56] LABS: Alanine Aminotransferase 11 U/L (0-31); Albumin Level 4.3 g/dL (3.5-5.0); Alkaline Phosphatase 87 U/L (39-117); Anion Gap 14 (12-20); Aspartate Amino Transferase 17 U/L (5-31); Bilirubin Total 0.7 mg/dL (0.0-1.0); Blood Urea Nitrogen 10 mg/dL (9-16); Calcium 11.5 mg/dL (8.4-10.2); Carbon Dioxide 28 mmol/L (22-29); Chloride 97 mmol/L (96-108); Estimated Glomerular Filt Rate > 60; Glucose Random 112 mg/dL (60-115); Potassium 3.2 mmol/L (3.3-5.1); Sodium 136 mmol/L (135-145); Total Protein 7.6 g/dL (6.5-8.0)
== END 2023-01-16 08:10 | disposition home or self-care (01) ==
LOC: HO.LAB 08:09
PROVIDERS: PCP Internal Medicine; Visit Provider Internal Medicine
DX: E03.9 Hypothyroidism, unspecified (principal); E11.9 Type 2 diabetes mellitus without complications; E78.2 Mixed hyperlipidemia; I10 Essential (primary) hypertension
CPT/HCPCS: 36415; 80053; 83036; 84443

== ENCOUNTER → 2023-01-31 07:47 | Outpatient (REF) | payer OTHER, SELFPAY ==
--- NOTE | 2023-01-31 07:55 | CA_ITS ---
Transthoracic Echocardiogram Patient (Last, First, Middle): Patience Singletary I Gender: Female Date of : 1965 Age: 57 Procedure Date: 01/31/2023 Procedure Type: Transthoracic Echocardiogram Location: OP Height: 154.94 cm Weight: 56.5 kg BSA: 1.54 m2 Heart Rate: 72 bpm BP: 135 / 90 mmHg Director Of Restaurant Operations: MARCO Referring MD: Christopher Chan MD Symptoms: J84.9 - Interstitial pulmonary disease, unspecified Study Quality: Adequate/Contrast ECG Rhythm: Sinus Conclusions: - Normal left ventricular size and systolic function. There is mildly increased left ventricular wall thickness. The visually estimated ejection fraction is between 60-65%. - Normal right ventricular cavity size. There is mildly decreased right ventricular systolic function. Findings Procedure Information Contrast agent, definity, is being given per protocol without apparent complications. Left Ventricle Normal left ventricular size and systolic function. There is mildly increased left ventricular wall thickness. The visually estimated ejection fraction is between 60-65%. There is no evidence of regional wall motion abnormalities. Diastolic function is normal for age. Right Ventricle Normal right ventricular cavity size. There is mildly decreased right ventricular systolic function. Atria The left atrium is normal in size. The right atrium is normal in size. Aortic Valve Normal aortic valve structure and function. There is no aortic valve stenosis. There is trace (trivial) aortic valve regurgitation. Mitral Valve The mitral valve appears normal. There is no mitral valve regurgitation. There is no mitral valve stenosis. Pulmonic Valve The pulmonic valve is likely normal. Tricuspid Valve Normal tricuspid valve structure. There is no tricuspid valve regurgitation. Tricuspid regurgitation envelope is inadequate for calculation of right ventricular systolic pressure. Normal right atrial pressure. Great Vessels There is mild dilatation of the ascending aorta measuring 3.70 cm. The visualized portions of the pulmonary artery and branches are normal. Venous The inferior vena cava is normal in size and collapses greater than 50% with inspiration. Pericardium/Pleural There is no evidence of pericardial effusion. Prior Study Comparison No significant change compared to prior study dated: 01/23/2022. Measurements 2D Linear Measurements IVSd: 0.92 0.6-0.9/0.6-1.0 cm LVIDd: 3.05 3.9-5.3/4.2-5.9 cm LVIDd Index: 1.98 2.4-3.2/2.2-3.1 cm/m2 LVIDs: 1.80 2.0-3.6 cm LVPWd: 0.90 0.7-1.1 cm LA Diam: 2.00 2.7-3.8/3.0-4.0 cm LAIDs Index: 1.30 1.5-2.3 cm/m2 LV Mass: 90.47 67-162/88-224 g LV Mass Index: 58.74 43-95/49-115 g/m2 LVOT Diam: 1.70 3.0+(-)1.3 cm 2D Systolic Function EF 4C: 67.10 >55% EF 2C: 69.40 >55% EF BiP: 67.40 >55% Mitral Valve MV Pk E: 0.39 MV PK A: 0.85 MV Decel Time: 323.00 E/A: 0.50 E'Lateral: 6.64 E'Medial: 4.68 E/E' Med: 8.20 E/E' Lat: 5.80 PHT: 95.00 MVA PHT: 2.32 Decel [place]: 1.19 Aortic Valve AoV Pk Romulo: 0.95 AoV Mn Romulo: 0.76 AoV VTI: 0.17 AoV Pk Grad: 4.00 Aov Mn Grad: 3.00 VINCENT Cont.VTI: 2.16 LVOT LVOT Pk Romulo: 0.82 LVOT Mn Romulo: 0.65 LVOT VTI: 0.16 LVOT Pk Grad: 3.00 LVOT Mn Grad: 2.00 LVOT Diam: 1.70 LVOT Area: 2.27 Diastolic Function MV Pk E: 0.39 MV Pk A: 0.85 E/A: 0.50 E'Medial: 4.68 E/E' Med: 8.20 E' Laterial: 6.64 E/E' Lat: 5.80 Right Ventricle TAPSE (mm): 16.10 TVS' Romulo: 7.72 Tricuspid Valve RA Press: 3.00 Great Vessels Aorta Sinus of Valsalva: 2.90 2.0-3.5 cm Ao Asc: 3.70 2.1-3.4 cm Pulmonary Valve PV Pk Romulo: 0.75 Peak PV Grad: 2.00 Updated in Other Vendor System with Status of Final Jorge Maier MD electronically signed on 02/03/2023 7:21:58 PM with status of Final
== END ==
LOC: HO.CARD 07:47
PROVIDERS: PCP Internal Medicine; Visit Provider Internal Medicine
DX: J84.9 Interstitial pulmonary disease, unspecified (principal)
CPT/HCPCS: 93306; Q9957

== ENCOUNTER → 2023-01-31 07:55 | Outpatient (BNV) | payer OTHER, SELFPAY | PROVIDERS: PCP Internal Medicine; Visit Provider Internal Medicine Cardiovascular Disease | DX: J84.9 Interstitial pulmonary disease, unspecified (principal) | CPT/HCPCS: 93306 ==

== ENCOUNTER 2023-02-20 08:48 | Outpatient (AMB) | payer OTHER, SELFPAY ==
[2023-02-20 08:52] VITALS: BP 126/80; PULSE 83; BMI 24.2
--- NOTE | 2023-02-20 08:52 | MHC.OFFVIS ---
Intake Vital Signs 02/20/23 08:52 Height 5 ft 1 in Weight 127 lb 13.89 oz BMI 24.2 BP 126/80 Blood Pressure Location Lt brachial Position Sitting Pulse 83 Intake Visit Reasons: 1 year follow up, after echo Intake Note: 1 year follow-up after echo with ekg Principal Technologist Required: No Seismic Plotter: Seismic Plotter Present Accompanied by: Daughter Allergies oxycodone [Percocet] Allergy (Severe, Verified 11/01/22 10:37) nausea and vomiting Medication List - Last Reconciled 02/20/23 by Christopher Chan MD benzonatate 200 mg PO BID PRN cholecalciferol (vitamin D3) 1 cap PO VENEGAS cyanocobalamin (vitamin B-12) 1,000 mcg sublingual DAILY estradiol mcg vaginal gabapentin 600 mg (2 x 300 mg) PO BEDTIME levothyroxine 50 mcg PO DAILY@0600 mycophenolate mofetil 1,500 mg (3 x 500 mg) PO BID 30 days nebulizers As directed Ofev (nintedanib) 150 mg PO BID NS potassium chloride ER 20 mEq PO DAILY HPI HPI Comments History of Present Illness Details Patience returns for follow-up. In the past, she was seen regarding chest discomfort. She has chronic interstitial lung disease as well as chronic respiratory failure. Uses supplemental oxygen. From a cardiac standpoint, no history of coronary disease or myocardial infarction or cardiomyopathy. She was getting symptoms of exertional shortness of breath as well as chest tightness and was referred for evaluation of cardiac components. She underwent noninvasive evaluation followed by cardiac catheterization as well. This showed normal coronary arteries. Overall, she states she is feeling good. No cardiac concerns. PENDING SALE TO [facility] Medical History (Updated 11/01/22 @ 10:53 by Minesh Randall MD) Asthma Chronic respiratory failure NSIP (nonspecific interstitial pneumonia) ILD (interstitial lung disease) Cough Acute respiratory failure Pneumonitis Hypothyroid Diabetes HTN (hypertension) Surgical History History of lung surgery (~2021) History of partial mastectomy of right breast (~2018) History of lithotripsy (~2005) History of colonoscopy (~2017) History of tubal ligation (~1995) History of Family History Father Cardiomyopathy Mother No problems noted. Social History Household Members: Children Housing: House Do you presently have visiting nurse or other home services: No Alcohol intake: never Patient Tobacco Use Status: Never used Tobacco Second Hand Smoke Exposure: No service: No Current occupational status: retired Review of Systems Const Denies chills, Denies fatigue, Denies fever(s), Denies frequent falls, Denies weakness, Denies weight gain and Denies weight loss ENT Denies dizziness Card Denies chest pain, Denies leg edema, Denies lightheadedness, Denies palpitations, Denies dyspnea, Denies dyspnea on exertion, Denies orthopnea and Denies other (loss of consciousness) Resp Denies cough, Denies dyspnea and Denies dyspnea on exertion GI Denies hematochezia and Denies change in stool character Musc Denies abnormal gait, Denies muscle weakness, Denies numbness, Denies radiating pain into limb and Denies tingling Neuro Denies abnormal gait, Denies dizziness, Denies frequent falls, Denies numbness, Denies tingling and Denies weakness Endo Denies fatigue and Denies palpitations Physical Exam Vital Signs: Last Vital Signs Pulse 83 02/20/23 08:52 BP 126/80 02/20/23 08:52 BMI result Body Mass Index 24.2 Const General: comfortable and no acute distress Orientation/consciousness: patient oriented x3 HEENT Other: Unremarkable Head: Yes normal to inspection Neck Neck: Yes normal visual inspection Chest Chest palpation & inspection: normal inspection of the chest Resp Auscultation: clear to auscultation bilaterally Cardio Palpation: normal PMI Heart sounds: S1 normal heart sound present, S2 normal heart sound present, no gallops, no murmurs and no rubs GI Palpation (GI): Soft to palpation Back/Spine/Pelvis Other: unremarkable Skin General skin exam: no rashes or lesions noted Neuro General: patient oriented x3 Extrem General: Yes normal to inspection Psych Mental Status: mental status grossly normal Office Procedures EKG Details: EKG with sinus rhythm at 83/Min; nonspecific ST-[place] changes; [place] [id number], Complete Assessment & Plan Assessment & Plan (1) Chest pain: Code(s): R07.9 - Chest pain, unspecified Qualifiers: Chest pain type: precordial pain Qualified Code(s): R07.2 - Precordial pain (2) ILD (interstitial lung disease): Code(s): J84.9 - Interstitial pulmonary disease, unspecified (3) Chronic respiratory failure: Code(s): J96.10 - Chronic respiratory failure, unspecified whether with hypoxia or hypercapnia Plan Cardiac studies reviewed. In the most recent echocardiogram, normal LVEF, 65%. Slight decrease in right ventricular systolic function. Could not assess pulmonary artery pressure. Cardiac catheterization with normal coronary arteries. Overall, stable cardiac status and no specific workup at this time. If indeed there is concern that she might develop pulmonary hypertension in the future, can repeat an echo at that time through pulmonology. Patient will call with ongoing concerns. Discussed with family who came for appointment. Coding Level of Care Code Est Pt Level 3 (27938) Diagnoses Precordial pain R07.2 Chest pain type: precordial pain ILD (interstitial lung disease) J84.9 Chronic respiratory failure J96.10 CPT Codes EKG - CPT: 23122-[id number], Complete ([id number])
== END 2023-02-20 09:46 | disposition home or self-care (01) ==
PROVIDERS: PCP Internal Medicine; Referring Provider Internal Medicine; Visit Provider Internal Medicine
DX: R07.2 Precordial pain (principal); J84.9 Interstitial pulmonary disease, unspecified; J96.10 Chronic respiratory failure, unspecified whether with hypoxia or hypercapnia
CPT/HCPCS: 93010; 99213

== ENCOUNTER → 2023-02-20 08:48 | Outpatient (BNVA) | payer OTHER, SELFPAY | PROVIDERS: PCP Internal Medicine; Referring Provider Internal Medicine; Visit Provider Internal Medicine | DX: R07.2 Precordial pain (principal); J84.9 Interstitial pulmonary disease, unspecified; J96.10 Chronic respiratory failure, unspecified whether with hypoxia or hypercapnia | CPT/HCPCS: 93005; 99212 ==

== ENCOUNTER 2023-03-24 09:36 | Outpatient (REF) | payer OTHER, SELFPAY ==
[2023-03-24 11:41] LABS: Vitamin D 25-OH Total 39.2 ng/mL (>30)
[2023-03-24 14:29] LABS: Alanine Aminotransferase 13 U/L (0-31); Albumin Level 4.2 g/dL (3.5-5.0); Alkaline Phosphatase 82 U/L (39-117); Anion Gap 15 (12-20); Aspartate Amino Transferase 16 U/L (5-31); Bilirubin Total 0.4 mg/dL (0.0-1.0); Blood Urea Nitrogen 11 mg/dL (9-16); Calcium 11.1 mg/dL (8.4-10.2); Carbon Dioxide 25 mmol/L (22-29); Chloride 101 mmol/L (96-108); Cholesterol 235 mg/dL (<200); Estimated Glomerular Filt Rate > 60; Glucose Random 53 mg/dL (60-115); HDL Cholesterol 56 mg/dL (>40); LDL Cholesterol Calculated 121 mg/dL (<100); Magnesium 1.5 mg/dL (1.6-2.6); Potassium 2.9 mmol/L (3.3-5.1); Sodium 138 mmol/L (135-145); Total Protein 7.2 g/dL (6.5-8.0); Triglycerides 292 mg/dL (<150)
[2023-03-25 18:13] LABS: Calcium (PTHI) 10.3 mg/dL (8.6-10.4); PTHI 117 pg/mL (16-77)
== END 2023-03-24 09:37 | disposition home or self-care (01) ==
LOC: HO.LAB 09:36
PROVIDERS: PCP Internal Medicine; Visit Provider Internal Medicine
DX: E03.9 Hypothyroidism, unspecified (principal); E11.9 Type 2 diabetes mellitus without complications; E83.52 Hypercalcemia; E87.6 Hypokalemia
CPT/HCPCS: 36415; 80053; 80061; 82306; 83735; 83970; 84100

== ENCOUNTER 2023-03-28 10:58 | Outpatient (AMB) | payer OTHER, SELFPAY ==
[2023-03-28 11:01] VITALS: BP 120/82; PULSE 94; O2SAT 99; BMI 23.0
--- NOTE | 2023-03-28 11:01 | A.OFFVIS_ITS ---
Intake Vital Signs 03/28/23 11:01 Height 5 ft 1 in Weight 122 lb BMI 23.0 BP 120/82 Blood Pressure Location Lt brachial Position Sitting Pulse 94 Pulse Source Pulse Oximeter Pulse Oximetry (%) 99 Oxygen Delivery Method Room Air Intake Visit Reasons: Sleep Study Results Intake Note: pt is here for follow up of sleep study results, She has poc and using is depends on weather and exertion. 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 She has been seen in multiple urgent care offices as well as the emergency department for this.? She was treated with 3 courses of prednisone, Tessalon and antibiotics with no improvement. She reports ongoing shortness of breath with exertion as well as coughing fits that are so severe it causes her to vomit and feel like she is going to pass out.? She has no associated chest pain or fevers.? She is a nonsmoker with no history of asthma or COPD.? She also reports that back in April she was having significant joint swelling in her hands and knees. She was evaluated by Rheumatology and awaiting bloodwork.? In the meantime she was noted to be dyspneic with crackles on examination. She was recommended to go to the ED. In the ED she was hypoxic to 84% with activity and CT chest with GGO bilaterally primarily at the bases. Covid testing negative. the patient was admitted to the hospital it was placed on pulse dose Solu- Medrol. Her symptoms improved and she was able to be discharged from the hospital. She did have a bowel extensive workup ruling out lupus, rheumatoid arthritis, HIV, vasculitis, hypersensitivity pneumonitis and also COVID. The blood work did demonstrate a slight eosinophilia bringing up the question of eosinophilic pneumonia. The patient was discharged home off oxygen. She was maintained on high doses of prednisone with a slow taper. Currently she is on 40 mg of prednisone tapering down by 10 mg every 5 days. she continues to have dyspnea on exertion. We did have her go for 6 minute walk testing the patient did qualify for oxygen becoming dyspneic and hypoxic. The patient will need oxygen supplementation with activity at this time. In the meantime explained to the patient that based on her CT scan in order to know definitively the etiology of her interstitial lung disease she would require a lung biopsy. However, the fact that she is on prednisone may actually decrease the yield of a biopsy at this time. It also will affect her healing process. Therefore, will taper her prednisone slowly until she is off and will repeat the CT scan to see if she has any residual findings. If she does have residual findings in the still a clear etiology has not been found for the interstitial lung disease then a biopsy will be warranted. 06/26/2021 the patient is here for a pul monary follow-up visit. She stop the prednisone now about 10 days ago. Once she gets to the lower doses of prednisone, below 40 mg she started developing worsening shortness of breath and cough again. Prior to that she did receive pulse dose Solu-Medrol on the hospital. She did have a repeat CT scan of the chest that was personally by me done on 06/21/2021 and compared to her CT scan that she had in May 24, 2021. It appears as though some interval worsening of her interstitial lung dis ease with increasing reticular nodular changes and some ground-glass opacities. I am concerned that she is developing increasing amounts of pulmonary fibrosis from the inflammatory process. Unfortunately, she did not respond to the high- dose Solu-Medrol and the high-dose prednisone. We did additional blood work including ruling out scleroderma along with the previous will blood work stated above. One possibility although less likely is anti synthetase syndrome. She does not appear to have any muscular involvement to suggest a polymyositis. Based on her worsening picture I do believe that the only way of knowing was going on would be to perform a lung biopsy. The patient is currently on 2 L at rest oxygen supplementation. We cannot perform her pulmonary function studies due to her constant coughing during the procedure. The patient understands the risks and benefits of a lung biopsy and she is agreeable at this time. We did talk about the alternative which is day bronchoscopy with biopsies but she understands that the yield from a bronchoscopy is going to be much less. I did speak to thoracic surgery. They do have some availability tomorrow at [facility]. We will send all the information possible. Will also request COVID testing to see if we can get everything situated for her to undergo a wedge biopsy tomorrow. 07/19/2021 the patient is here for a pulm onary follow-up visit. 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 The patient was started on CellCept 500 mg twice a day and also she also started on OFEV. Seems to be tolerating both medications well. Will try to increase the CellCept slowly to 2 g a day. In the meantime her respiratory status has improved. Her oxygenation at rest is better and she is not requiring oxygen at rest. She still gets winded with activity. We did have her go for 6 minute walk test with a conserving device. The patient tolerated the device at 4 L pulse. She describes chest pressure once her oxygen dropped below 90. Therefore, I am going to refer her to Cardiology in order to have a cardiac evaluation in case there is any evidence of coronary artery disease that needs to be addressed. Patient still waiting to hear back from [place]. Initially we did try to get to [facility] pulmonary. But, her insurance would not cover [facility]. Therefore will refer her to [facility] [place] [place] Pulmonary. This way if the patient has any progression of her disease she is already in a transplant center that came over long the process if necessary. In the meantime will continue to optimize respiratory therapy in order to reach some degree of stability of her condition. 08/23/2021 the patient is here for a pulm onary follow-up visit. She has been having a significant amount of coughing lately. The cough is keeping her up at nighttime. The coughing is also causing her surgical area to become uncomfortable. The cough is moderate in severity. The cough syrup does not help. The patient also has Tessalon Perles that have not helped. Her respiratory therapy has not helped although she has not been using nebulizer. The 1 she has tolerated the CellCept 2 capsules in the morning and and 1 capsule at nighttime. She is also tolerating the OFEV. Examination she does have increased wheezing and prolonged expiratory phase. Therefore, will go ahead and treated with prednisone taper and a course of antibiotics because she does have productive cough. If the patient is not better by next week she can give me a sample of the sputum culture to be better sent to the laboratory for further analysis. If her symptoms do improve then we have to increase her mycophenolate to a more therapeutic dose. In the meantime she continues on the oxygen. This is a potentially chronic progressive condition therefore she is going to need to stay on the oxygen. At this point she cannot go back to work. The we did try to refer her to [place] both [facility] in [facility] [place] specially to get a 2nd opinion and also to be involved in lung transplant program. 10/04/2021 the patient is here for a puljosé luis oliver follow-up visit. The patient overall has been doing about the same. She has been using the oxygen typically 4 L with activity. I did request the [employer] get her a trolley in order for her not to be a better lives does have a tanks. In the meantime the patient has been tolerating the CellCept at 2 g a day. She continues on the Ofev at the full dose. She does have some loose stools but otherwise not severe. She does have some external hemorrhoids that have become uncomfortable however. She is dealing with the issues. She is not on any prednisone. Her last chest x-ray about couple months ago demonstrated stable disease. Will have her get an x-ray today. Her blood work is stable. Will go ahead and increase her CellCept today to 1500 mg in the morning and a 1000 mg at nighttime. She can do this for months time and then if she is able to increase it she can then increase to full dose of 3 g a day. She will continue on the all vent. She is still waiting for appointment in [place] for 2nd opinion at a tertiary center. I am hopeful that she can also be transferred a referred to a lung transplantation Clinic which we try doing but her insurance denied any at times from us. This is an unfortunate issue but we are working around that. 12/11/2021 the patient is here for pulmonary follow-up visit. Overall the patient appears to be doing a little better. She did have her evaluation in [place] in the patient was very happy with her experience with the new provider. will make sure to send all the records needed to facilitate her evaluation. In the meantime she will undergo additional testing while in [place] and a lot of the studies will be repeated again to reassess her baseline. Seems to be responding well to the therapy. Currently on 2500 mg of CellCept daily along with her OFEV. while she was in [place] she did have a repeat 6 minutes walk test and she was able to maintain a pulse ox that was adequate at rest on room air and did require 2 L with activity. This is much better than before. Her respiratory exam also is reassuring. 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 Unfortunately, after that visit she developed worsening respiratory and GI symptoms as well as worsening constitutional symptoms for 2-3 days afterwards. Therefore she will have to minimize her exposure to the school. 02/26/2022 the patient is here for a pulmonary follow-up visit. Since we last spoke she did go to [place] to be evaluated. While she was having a 6 minute walk test he developed chest pain. The patient did feel better after resting but she will also was sent to the hospital to be evaluated in the ER. Ultimately she was briefly admitted to the hospital for day. She was subsequently discharged. Currently she is feeling better. There have been no changes in her medications since we last spoke. Her respiratory status is better. She was reassured that her x-ray while admitted to the hospital appear to be little better. The patient still requires between 2-3 L of oxygen. The patient is agreeable to start pulmonary rehabilitation at this time. I believe it is crucial for her to start rehabilitation at this time since she is a little better. The patient is still not able to return to work because of her respiratory failure. I did advise her to looking to long-term disability. 03/22/2022 the patient is here for sick visit. Apparently she developed a worsening cough that is 3-4 days. Positive sick contacts. Has been complaining of increasing nasal congestion and postnasal drip. She also has some sinus pressure moderate severity. Denies any chest tightness or wheezing at this time. On examination she does have increased rhonchi in the right base suggesting the possibility of bronchopneumonia. Therefore will go ahead and start her on therapy. The patient is no better she is to call the office for further evaluation. 06/14/2022 the patient is here for the madeline doll overall is feeling well. She continues use her oxygen with activity with good effect. She is wondering if she can qualify for a conserving device. Therefore we had her undergo a 6 minutes walk test and indeed she did very well with activity on 2 L pulse. Will request a portable oxygen concentrator from the [employer]. The patient does need better portability and therefore the battery operated portable oxygen concentrator will be able to be more appropriate for her. In the meantime she did have a CT scan of the chest chest. Still demonstrate that she has evidence of pneumonitis. Therefore will go ahead and increase her CellCept to 3 capsules 2 times a day which will be 3 g a day. She is also tolerating the Ofev. She did have additional blood work in [place]. She does not have the results as of yet. 11/01/2022 patient is here for pulmonary follow-up visit. The patient overall has been doing relatively well. She did not tolerate the full does mycophenolate due to GI adverse effects. Therefore she continued with 3 capsules in the morning and 2 capsules at nighttime. She continues use her oxygen with good effect. She did follow-up in [place] and did not have any medication changes. She did have blood work done. She has been having const itutional symptoms including dizziness, lightheadedness and also has been having some issues with BP elevation. Therefore will go ahead and request additional blood work. 03/28/2023 the patient is here for puljosé luis oliver follow-up visit. Since we last saw evaluate her she has had significant GI adverse effects. Partly due to the combination of the all 5 and the mycophenolate. She has been having a lot of vomiting and does not tolerate all the foods. She continues to lose weight. Her primary care doctor had ordered blood work and demonstrated significant abnormalities with a potassium the magnesium and phosphorus. I did send her repeat placement therapies. The patient also gets very nauseous therefore Zofran may be helpful in minimizing the symptoms. In the meantime I did send her the lower dose all 5 of 100 that she can try for a month and also she will take a break this we can overall. In addition to that the mycophenolate will decrease down to 2 tablets in the morning and 1 at night and then hopefully she if she feels better she can increase it to 2 in the morning and 2 at nighttime. She does have a follow-up with her specialist in [place] coming up. Not sure she is going to have additional imaging at that time. Otherwise will do imaging around here. She continues use oxygen with activity with good effect. Overall the respiratory condition has been stable with current medications. [facility] Medical History (Updated 03/31/23 @ 08:07 by Minesh Randall MD) Asthma Chronic respiratory failure NSIP (nonspecific interstitial pneumonia) ILD (interstitial lung disease) Cough Acute respiratory failure Pneumonitis Hypothyroid Diabetes HTN (hypertension) Surgical History History of lung surgery (~2021) History of partial mastectomy of right breast (~2018) History of lithotripsy (~2005) History of colonoscopy (~2017) History of tubal ligation (~1995) History of Family History Father Cardiomyopathy Mother No problems noted. Social History Household Members: Children Housing: House Do you presently have visiting nurse or other home services: No Alcohol intake: never Patient Tobacco Use Status: Never used Tobacco Second Hand Smoke Exposure: No service: No Current occupational status: retired Review of Systems Const Denies chills, Denies fatigue, Denies fever(s), Denies frequent falls, Reports headache(s), Denies weakness, Denies weight gain and Reports weight loss ENT Reports dizziness, Reports headache(s), Reports nasal congestion, Reports nasal discharge, Reports post nasal drip and Reports sinus pressure Card Denies chest pain, Denies leg edema, Denies lightheadedness, Denies palpitations, Denies dyspnea, Reports dyspnea on exertion, Denies orthopnea and Denies other (Loss of consciousness) Resp Denies change in phlegm color, Denies chest congestion, Reports cough, Denies dyspnea and Reports dyspnea on exertion GI Denies hematochezia, Denies change in bowel habits, Reports dyspepsia, Reports diarrhea, Reports nausea and Reports vomiting Musc Denies abnormal gait, Denies muscle weakness, Denies numbness, Denies radiating pain into limb and Denies tingling Neuro Denies abnormal gait, Reports dizziness, Denies frequent falls, Reports headache(s), Denies numbness, Denies tingling and Denies weakness Endo Denies fatigue and Denies palpitations Physical Exam Vital Signs: Last Vital Signs Pulse 94 03/28/23 11:01 BP 120/82 03/28/23 11:01 Pulse Ox 99 03/28/23 11:01 Oxygen Delivery Method Room Air 03/28/23 11:01 BMI result Body Mass Index 23.0 Const General: cooperative, healthy appearing, comfortable and no acute distress Neck Neck: Yes normal visual inspection Chest Chest palpation & inspection: normal inspection of the chest Resp Auscultation: crackles, no rhonchi, no wheezes and diminished lung sounds Cardio Rate: regular rate Rhythm: regular rhythm Heart sounds: S1 normal heart sound present, S2 normal heart sound present, no gallops, no murmurs and no rubs GI Inspection: Yes normal to inspection Extrem General: Yes normal to inspection and No no pedal edema Psych Appearance: grossly normal Mental Status: mental status grossly normal Results Reviewed Results Reviewed: personally reviewed last CXR, PFTs and bloodwork Assessment & Plan Assessment & Plan (1) ILD (interstitial lung disease): Code(s): J84.9 - Interstitial pulmonary disease, unspecified (2) NSIP (nonspecific interstitial pneumonia): Comment: biopsy-proven. 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 Code(s): J84.89 - Other specified interstitial pulmonary diseases (3) Chronic respiratory failure: Code(s): J96.10 - Chronic respiratory failure, unspecified whether with hypoxia or hypercapnia Qualifiers: Respiratory failure complication: hypoxia Qualified Code(s): J96.11 - Chronic respiratory failure with hypoxia (4) Cough: Code(s): R05.9 - Cough, unspecified Qualifiers: Cough type: chronic Qualified Code(s): R05.3 - Chronic cough (5) Asthma: Code(s): J45.909 - Unspecified asthma, uncomplicated Qualifiers: Asthma complication type: uncomplicated Asthma severity: moderate Asthma persistence: persistent Qualified Code(s): J45.40 - Moderate persistent asthma, uncomplicated (6) Obstructive sleep apnea syndrome: Code(s): G47.33 - Obstructive sleep apnea (adult) (pediatric) (7) Malnutrition: Code(s): E46 - Unspecified protein-calorie malnutrition Qualifiers: Malnutrition type: protein-calorie malnutrition Protein-calorie malnutrition severity: moderate Qualified Code(s): E44.0 - Moderate protein- calorie malnutrition Plan decrease Ofev 100mg x 1 month decrease CellCept 1000mg BID Continue oxygen supplementation, 2 L/pulse with activity. The patient needs a POC for better portability outside of the home Pulmonary rehab Short-acting beta agonist as needed Bloodwork electrolyte replacement will F/U with [email or web address] ILD clinic Gabapentin at night Follow-up in 2 months Orders: Orders Complete Blood Count Auto Diff 03/28/23 E46 - Unspecified protein-calorie malnutrition Phosphorus 03/28/23 E46 - Unspecified protein-calorie malnutrition Basic Metabolic Panel 03/28/23 E46 - Unspecified protein-calorie malnutrition Magnesium 03/28/23 E46 - Unspecified protein-calorie malnutrition Medications: New magnesium 250 mg PO DAILY 7 days 7 tabs 0RF potassium, sodium phosphates 280-160-250 mg (Phosphorous Supplement) 1 packet PO QID 2 days 8 ea 0RF ondansetron 4 mg PO Q8H 14 days PRN 30 tabs 5RF nausea and vomiting nintedanib (Ofev) 100 mg PO Q12H 30 days 60 caps 0RF Coding Level of Care Code Est Pt Level 5 (09786) Diagnoses ILD (interstitial lung disease) J84.9 NSIP (nonspecific interstitial pneumonia) J84.89 Chronic respiratory failure with hypoxia J96.11 Respiratory failure complication: hypoxia Chronic cough R05.3 Cough type: chronic Moderate persistent asthma without complication J45.40 Asthma complication type: uncomplicated Asthma severity: moderate Asthma persistence: persistent Obstructive sleep apnea syndrome G47.33 Moderate protein-calorie malnutrition E44.0 Malnutrition type: protein-calorie malnutrition Protein-calorie malnutrition severity: moderate Time Spent (min) 45
== END 2023-03-28 11:34 | disposition home or self-care (01) ==
PROVIDERS: PCP Internal Medicine; Visit Provider Hospitalist
DX: G47.33 Obstructive sleep apnea (adult) (pediatric) (principal); J84.9 Interstitial pulmonary disease, unspecified; J96.11 Chronic respiratory failure with hypoxia; J45.40 Moderate persistent asthma, uncomplicated
CPT/HCPCS: 99215

== ENCOUNTER → 2023-03-28 10:58 | Outpatient (BNVA) | payer OTHER, SELFPAY | PROVIDERS: PCP Internal Medicine; Visit Provider Hospitalist | DX: J84.9 Interstitial pulmonary disease, unspecified (principal); J84.89 Other specified interstitial pulmonary diseases; J96.11 Chronic respiratory failure with hypoxia; J45.40 Moderate persistent asthma, uncomplicated; R05.3 Chronic cough; G47.33 Obstructive sleep apnea (adult) (pediatric); E44.0 Moderate protein-calorie malnutrition | CPT/HCPCS: 99212 ==

== ENCOUNTER 2023-04-04 10:39 | Outpatient (REF) | payer OTHER, SELFPAY ==
[2023-04-04 10:52] LABS: MANUAL DIFF FLAG NO
[2023-04-04 11:40] LABS: Basophils Percent Auto 0.5 % (0-2); Eosinophils Absolute Auto 0.1 X10*3/uL (0.0-0.4); Eosinophils Percent Auto 1.6 % (0-4); Hematocrit 36.3 % (37.0-47.0); Imm Gran Abs Auto 0.04 X10*3/uL (0.00-0.03); Imm Gran Pct Auto 0.5 % (0.0-0.4); Lymphocytes Absolute Auto 3.2 X10*3/uL (1.2-4.9); Lymphocytes Percent Auto 37.3 % (20-40); Mean Corpuscular HGB Conc 33.1 g/dl (31.0-35.0); Mean Corpuscular Hemoglobin 30.8 pg (27.0-33.0); Mean Corpuscular Volume 93.1 fL (80.0-98.0); Monocytes Absolute Auto 0.8 X10*3/uL (0.1-1.2); Monocytes Percent Auto 8.7 % (2-11); Neutrophils Absolute Auto 4.5 x10*3/uL (2.0-8.3); Neutrophils Percent Auto 51.4 % (45-73); Platelet Count 219 X10*3/uL (160-400); White Blood Count 8.7 X10*3/uL (4.8-10.8)
[2023-04-04 12:40] LABS: Anion Gap 11 (12-20); Blood Urea Nitrogen 10 mg/dL (9-16); Calcium 9.9 mg/dL (8.4-10.2); Carbon Dioxide 28 mmol/L (22-29); Chloride 107 mmol/L (96-108); Estimated Glomerular Filt Rate > 60; Glucose Random 69 mg/dL (60-115); Phosphorus 1.7 mg/dL (2.7-4.5); Potassium 3.7 mmol/L (3.3-5.1); Sodium 142 mmol/L (135-145)
[2023-04-04 14:00] LABS: Magnesium 1.4 mg/dL (1.6-2.6)
== END 2023-04-04 10:40 | disposition home or self-care (01) ==
LOC: HO.LAB 10:39
PROVIDERS: PCP Internal Medicine; Visit Provider Hospitalist
DX: E46 Unspecified protein-calorie malnutrition (principal)
CPT/HCPCS: 36415; 80048; 83735; 84100; 85025

== ENCOUNTER 2023-04-11 08:33 | Outpatient (REF) | payer OTHER, SELFPAY ==
[2023-04-11 09:51] LABS: Anion Gap 11 (12-20); Blood Urea Nitrogen 12 mg/dL (9-16); Calcium 11.1 mg/dL (8.4-10.2); Carbon Dioxide 28 mmol/L (22-29); Chloride 103 mmol/L (96-108); Estimated Glomerular Filt Rate > 60; Glucose Random 92 mg/dL (60-115); Phosphorus 3.5 mg/dL (2.7-4.5); Potassium 4.5 mmol/L (3.3-5.1); Sodium 137 mmol/L (135-145)
== END 2023-04-11 08:34 | disposition home or self-care (01) ==
LOC: HO.LAB 08:33
PROVIDERS: PCP Internal Medicine; Visit Provider Hospitalist
DX: E44.0 Moderate protein-calorie malnutrition (principal)
CPT/HCPCS: 36415; 80048; 83735; 84100

== ENCOUNTER 2023-05-09 13:51 | Outpatient (AMB) | payer MEDICAID, SELFPAY ==
[2023-05-09 13:52] VITALS: BP 152/82; PULSE 79; O2SAT 98; BMI 25.4
--- NOTE | 2023-05-09 13:52 | MHC.OFFVIS ---
Intake Vital Signs 05/09/23 13:52 Height 5 ft 1 in Weight 134 lb 7.712 oz BMI 25.4 BP 152/82 H Blood Pressure Location Lt brachial Position Sitting Pulse 79 Pulse Source Doppler Pulse Oximetry (%) 98 Oxygen Delivery Method Room Air Intake Visit Reasons: ILD Allergies oxycodone [Percocet] Allergy (Severe, Verified 05/09/23 13:54) nausea and vomiting HPI HPI Comments History of Present Illness Details The patient is a 57 y/o female with history of diabetes, HTN, HLD who presents to the ER with ongoing shortness of breath and coughing episodes since March.? She has been seen in multiple urgent care offices as well as the emergency department for this.? She was treated with 3 courses of prednisone, Tessalon and antibiotics with no improvement. She reports ongoing shortness of breath with exertion as well as coughing fits that are so severe it causes her to vomit and feel like she is going to pass out.? She has no associated chest pain or fevers.? She is a nonsmoker with no history of asthma or COPD.? She also reports that back in April she was having significant joint swelling in her hands and knees. She was evaluated by Rheumatology and awaiting bloodwork.? In the meantime she was noted to be dyspneic with crackles on examination. She was recommended to go to the ED. In the ED she was hypoxic to 84% with activity and CT chest with GGO bilaterally primarily at the bases. Covid testing negative. the patient was admitted to the hospital it was placed on pulse dose Solu-Medrol. Her symptoms improved and she was able to be discharged from the hospital. She did have a bowel extensive workup ruling out lupus, rheumatoid arthritis, HIV, vasculitis, hypersensitivity pneumonitis and also COVID. The blood work did demonstrate a slight eosinophilia bringing up the question of eosinophilic pneumonia. The patient was discharged home off oxygen. She was maintained on high doses of prednisone with a slow taper. Currently she is on 40 mg of prednisone tapering down by 10 mg every 5 days. she continues to have dyspnea on exertion. We did have her go for 6 minute walk testing the patient did qualify for oxygen becoming dyspneic and hypoxic. The patient will need oxygen supplementation with activity at this time. In the meantime explained to the patient that based on her CT scan in order to know definitively the etiology of her interstitial lung disease she would require a lung biopsy. However, the fact that she is on prednisone may actually decrease the yield of a biopsy at this time. It also will affect her healing process. Therefore, will taper her prednisone slowly until she is off and will repeat the CT scan to see if she has any residual findings. If she does have residual findings in the still a clear etiology has not been found for the interstitial lung disease then a biopsy will be warranted. 06/26/2021 the patient is here for a pulmonary follow-up visit. She stop the prednisone now about 10 days ago. Once she gets to the lower doses of prednisone, below 40 mg she started developing worsening shortness of breath and cough again. Prior to that she did receive pulse dose Solu-Medrol on the hospital. She did have a repeat CT scan of the chest that was personally by me done on 06/21/2021 and compared to her CT scan that she had in May 24, 2021. It appears as though some interval worsening of her interstitial lung disease with increasing reticular nodular changes and some ground-glass opacities. I am concerned that she is developing increasing amounts of pulmonary fibrosis from the inflammatory process. Unfortunately, she did not respond to the high-dose Solu-Medrol and the high-dose prednisone. We did additional blood work including ruling out scleroderma along with the previous will blood work stated above. One possibility although less likely is anti synthetase syndrome. She does not appear to have any muscular involvement to suggest a polymyositis. Based on her worsening picture I do believe that the only way of knowing was going on would be to perform a lung biopsy. The patient is currently on 2 L at rest oxygen supplementation. We cannot perform her pulmonary function studies due to her constant coughing during the procedure. The patient understands the risks and benefits of a lung biopsy and she is agreeable at this time. We did talk about the alternative which is day bronchoscopy with biopsies but she understands that the yield from a bronchoscopy is going to be much less. I did speak to thoracic surgery. They do have some availability tomorrow at [facility]. We will send all the information possible. Will also request COVID testing to see if we can get everything situated for her to undergo a wedge biopsy tomorrow. 07/19/2021 the patient is here for a pulmonary follow-up visit. 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 The patient was started on CellCept 500 mg twice a day and also she also started on OFEV. Seems to be tolerating both medications well. Will try to increase the CellCept slowly to 2 g a day. In the meantime her respiratory status has improved. Her oxygenation at rest is better and she is not requiring oxygen at rest. She still gets winded with activity. We did have her go for 6 minute walk test with a conserving device. The patient tolerated the device at 4 L pulse. She describes chest pressure once her oxygen dropped below 90. Therefore, I am going to refer her to Cardiology in order to have a cardiac evaluation in case there is any evidence of coronary artery disease that needs to be addressed. Patient still waiting to hear back from [place]. Initially we did try to get to [facility] pulmonary. But, her insurance would not cover [facility]. Therefore will refer her to [facility]monary. This way if the patient has any progression of her disease she is already in a transplant center that came over long the process if necessary. In the meantime will continue to optimize respiratory therapy in order to reach some degree of stability of her condition. 08/23/2021 the patient is here for a pulmonary follow-up visit. She has been having a significant amount of coughing lately. The cough is keeping her up at nighttime. The coughing is also causing her surgical area to become uncomfortable. The cough is moderate in severity. The cough syrup does not help. The patient also has Tessalon Perles that have not helped. Her respiratory therapy has not helped although she has not been using nebulizer. The 1 she has tolerated the CellCept 2 capsules in the morning and and 1 capsule at nighttime. She is also tolerating the OFEV. Examination she does have increased wheezing and prolonged expiratory phase. Therefore, will go ahead and treated with prednisone taper and a course of antibiotics because she does have productive cough. If the patient is not better by next week she can give me a sample of the sputum culture to be better sent to the laboratory for further analysis. If her symptoms do improve then we have to increase her mycophenolate to a more therapeutic dose. In the meantime she continues on the oxygen. This is a potentially chronic progressive condition therefore she is going to need to stay on the oxygen. At this point she cannot go back to work. The we did try to refer her to [place] both [facility] specially to get a 2nd opinion and also to be involved in lung transplant program. 10/04/2021 the patient is here for a pulmonary follow-up visit. The patient overall has been doing about the same. She has been using the oxygen typically 4 L with activity. I did request the [employer] get her a trolley in order for her not to be a better lives does have a tanks. In the meantime the patient has been tolerating the CellCept at 2 g a day. She continues on the Ofev at the full dose. She does have some loose stools but otherwise not severe. She does have some external hemorrhoids that have become uncomfortable however. She is dealing with the issues. She is not on any prednisone. Her last chest x-ray about couple months ago demonstrated stable disease. Will have her get an x-ray today. Her blood work is stable. Will go ahead and increase her CellCept today to 1500 mg in the morning and a 1000 mg at nighttime. She can do this for months time and then if she is able to increase it she can then increase to full dose of 3 g a day. She will continue on the all vent. She is still waiting for appointment in [place] for 2nd opinion at a tertiary center. I am hopeful that she can also be transferred a referred to a lung transplantation Clinic which we try doing but her insurance denied any at times from us. This is an unfortunate issue but we are working around that. 12/11/2021 the patient is here for pulmonary follow-up visit. Overall the patient appears to be doing a little better. She did have her evaluation in [place] in the patient was very happy with her experience with the new provider. will make sure to send all the records needed to facilitate her evaluation. In the meantime she will undergo additional testing while in [place] and a lot of the studies will be repeated again to reassess her baseline. Seems to be responding well to the therapy. Currently on 2500 mg of CellCept daily along with her OFEV. while she was in [place] she did have a repeat 6 minutes walk test and she was able to maintain a pulse ox that was adequate at rest on room air and did require 2 L with activity. This is much better than before. Her respiratory exam also is reassuring. 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 Unfortunately, after that visit she developed worsening respiratory and GI symptoms as well as worsening constitutional symptoms for 2-3 days afterwards. Therefore she will have to minimize her exposure to the school. 02/26/2022 the patient is here for a pulmonary follow-up visit. Since we last spoke she did go to [place] to be evaluated. While she was having a 6 minute walk test he developed chest pain. The patient did feel better after resting but she will also was sent to the hospital to be evaluated in the ER. Ultimately she was briefly admitted to the hospital for day. She was subsequently discharged. Currently she is feeling better. There have been no changes in her medications since we last spoke. Her respiratory status is better. She was reassured that her x-ray while admitted to the hospital appear to be little better. The patient still requires between 2-3 L of oxygen. The patient is agreeable to start pulmonary rehabilitation at this time. I believe it is crucial for her to start rehabilitation at this time since she is a little better. The patient is still not able to return to work because of her respiratory failure. I did advise her to looking to long-term disability. 03/22/2022 the patient is here for sick visit. Apparently she developed a worsening cough that is 3-4 days. Positive sick contacts. Has been complaining of increasing nasal congestion and postnasal drip. She also has some sinus pressure moderate severity. Denies any chest tightness or wheezing at this time. On examination she does have increased rhonchi in the right base suggesting the possibility of bronchopneumonia. Therefore will go ahead and start her on therapy. The patient is no better she is to call the office for further evaluation. 06/14/2022 the patient is here for the patient overall is feeling well. She continues use her oxygen with activity with good effect. She is wondering if she can qualify for a conserving device. Therefore we had her undergo a 6 minutes walk test and indeed she did very well with activity on 2 L pulse. Will request a portable oxygen concentrator from the [employer]. The patient does need better portability and therefore the battery operated portable oxygen concentrator will be able to be more appropriate for her. In the meantime she did have a CT scan of the chest chest. Still demonstrate that she has evidence of pneumonitis. Therefore will go ahead and increase her CellCept to 3 capsules 2 times a day which will be 3 g a day. She is also tolerating the Ofev. She did have additional blood work in [place]. She does not have the results as of yet. 11/01/2022 patient is here for pulmonary follow-up visit. The patient overall has been doing relatively well. She did not tolerate the full does mycophenolate due to GI adverse effects. Therefore she continued with 3 capsules in the morning and 2 capsules at nighttime. She continues use her oxygen with good effect. She did follow-up in [place] and did not have any medication changes. She did have blood work done. She has been having constitutional symptoms including dizziness, lightheadedness and also has been having some issues with BP elevation. Therefore will go ahead and request additional blood work. 03/28/2023 the patient is here for pulmonary follow-up visit. Since we last saw evaluate her she has had significant GI adverse effects. Partly due to the combination of the all 5 and the mycophenolate. She has been having a lot of vomiting and does not tolerate all the foods. She continues to lose weight. Her primary care doctor had ordered blood work and demonstrated significant abnormalities with a potassium the magnesium and phosphorus. I did send her repeat placement therapies. The patient also gets very nauseous therefore Zofran may be helpful in minimizing the symptoms. In the meantime I did send her the lower dose all 5 of 100 that she can try for a month and also she will take a break this we can overall. In addition to that the mycophenolate will decrease down to 2 tablets in the morning and 1 at night and then hopefully she if she feels better she can increase it to 2 in the morning and 2 at nighttime. She does have a follow-up with her specialist in [place] coming up. Not sure she is going to have additional imaging at that time. Otherwise will do imaging around here. She continues use oxygen with activity with good effect. Overall the respiratory condition has been stable with current medications. 05/09/2023 The patient is here for pulmonary follow-up visit. The patient is doing much better from the GI side effects. She is tolerating the lower dose Ofev 100 mg. she was also able to slowly increase the mycophenolate to 3 g a day. Her electrolytes are now normalized which is reassuring. The patient continues to have shortness of breath and dyspnea due to her interstitial lung disease. She does have oxygen supplementation available. The oxygen is beneficial ineffective for her. She does have a follow-up in [place] coming up in the springtime at which time she will undergo a CT scan of the chest. I am hopeful that her disease state is normalized and also hopeful that she can tolerate a lower dose of mycophenolate if it is appropriate. Recently, started developing URI symptoms. +sick contact. [facility] Medical History (Updated 03/31/23 @ 08:07 by Minesh Randall MD) Asthma Chronic respiratory failure NSIP (nonspecific interstitial pneumonia) ILD (interstitial lung disease) Cough Acute respiratory failure Pneumonitis Hypothyroid Diabetes HTN (hypertension) Surgical History History of lung surgery (~2021) History of partial mastectomy of right breast (~2018) History of lithotripsy (~2005) History of colonoscopy (~2017) History of tubal ligation (~1995) History of Family History Father Cardiomyopathy Mother No problems noted. Social History Household Members: Children Housing: House Do you presently have visiting nurse or other home services: No Alcohol intake: never Patient Tobacco Use Status: Never used Tobacco Second Hand Smoke Exposure: No service: No Current occupational status: retired Review of Systems Const Denies chills, Denies fatigue, Denies fever(s), Denies frequent falls, Reports headache(s), Denies weakness, Denies weight gain and Reports weight loss ENT Reports dizziness, Reports headache(s), Reports nasal congestion, Reports nasal discharge, Reports post nasal drip and Reports sinus pressure Card Denies chest pain, Denies leg edema, Denies lightheadedness, Denies palpitations, Denies dyspnea, Reports dyspnea on exertion, Denies orthopnea and Denies other (Loss of consciousness) Resp Denies change in phlegm color, Denies chest congestion, Reports cough, Denies dyspnea and Reports dyspnea on exertion GI Denies hematochezia, Denies change in bowel habits, Reports dyspepsia, Reports diarrhea, Reports nausea and Reports vomiting Musc Denies abnormal gait, Denies muscle weakness, Denies numbness, Denies radiating pain into limb and Denies tingling Neuro Denies abnormal gait, Reports dizziness, Denies frequent falls, Reports headache(s), Denies numbness, Denies tingling and Denies weakness Endo Denies fatigue and Denies palpitations Physical Exam Vital Signs: Last Vital Signs Pulse 79 05/09/23 13:52 BP 152/82 H 05/09/23 13:52 Pulse Ox 98 05/09/23 13:52 Oxygen Delivery Method Room Air 05/09/23 13:52 BMI result Body Mass Index 25.4 Const General: cooperative, healthy appearing, comfortable and no acute distress Neck Neck: Yes normal visual inspection Chest Chest palpation & inspection: normal inspection of the chest Resp Auscultation: crackles, no rhonchi, no wheezes and diminished lung sounds Cardio Rate: regular rate Rhythm: regular rhythm Heart sounds: S1 normal heart sound present, S2 normal heart sound present, no gallops, no murmurs and no rubs GI Inspection: Yes normal to inspection Extrem General: Yes normal to inspection and No no pedal edema Psych Appearance: grossly normal Mental Status: mental status grossly normal Assessment & Plan Assessment & Plan (1) ILD (interstitial lung disease): Code(s): J84.9 - Interstitial pulmonary disease, unspecified (2) NSIP (nonspecific interstitial pneumonia): Comment: biopsy-proven. 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 Code(s): J84.89 - Other specified interstitial pulmonary diseases (3) Chronic respiratory failure: Code(s): J96.10 - Chronic respiratory failure, unspecified whether with hypoxia or hypercapnia Qualifiers: Respiratory failure complication: hypoxia Qualified Code(s): J96.11 - Chronic respiratory failure with hypoxia (4) Cough: Code(s): R05.9 - Cough, unspecified Qualifiers: Cough type: chronic Qualified Code(s): R05.3 - Chronic cough (5) Asthma: Code(s): J45.909 - Unspecified asthma, uncomplicated Qualifiers: Asthma complication type: uncomplicated Asthma persistence: persistent Asthma severity: moderate Qualified Code(s): J45.40 - Moderate persistent asthma, uncomplicated (6) Obstructive sleep apnea syndrome: Code(s): G47.33 - Obstructive sleep apnea (adult) (pediatric) Plan continue Ofev 100mg CellCept 1500mg BID start Doxycycline Continue oxygen supplementation, 2 L/pulse with activity. The patient needs a POC for better portability outside of the home Pulmonary rehab Short-acting beta agonist as needed Bloodwork will F/U with [facility] ILD clinic Gabapentin at night Follow-up in 2 months Coding Level of Care Code Est Pt Level 4 (84900) Diagnoses ILD (interstitial lung disease) J84.9 NSIP (nonspecific interstitial pneumonia) J84.89 Chronic respiratory failure with hypoxia J96.11 Respiratory failure complication: hypoxia Chronic cough R05.3 Cough type: chronic Moderate persistent asthma without complication J45.40 Asthma complication type: uncomplicated Asthma persistence: persistent Asthma severity: moderate Obstructive sleep apnea syndrome G47.33 Time Spent (min) 16
== END 2023-05-09 14:18 | disposition home or self-care (01) ==
PROVIDERS: PCP Internal Medicine; Visit Provider Hospitalist
DX: J84.9 Interstitial pulmonary disease, unspecified (principal); J84.89 Other specified interstitial pulmonary diseases; J96.11 Chronic respiratory failure with hypoxia; R05.3 Chronic cough; J45.40 Moderate persistent asthma, uncomplicated; G47.33 Obstructive sleep apnea (adult) (pediatric)
CPT/HCPCS: 99214

== ENCOUNTER → 2023-05-09 13:51 | Outpatient (BNVA) | payer MEDICAID, SELFPAY | PROVIDERS: PCP Internal Medicine; Visit Provider Hospitalist | DX: J84.9 Interstitial pulmonary disease, unspecified (principal); J84.89 Other specified interstitial pulmonary diseases; J96.11 Chronic respiratory failure with hypoxia; J45.40 Moderate persistent asthma, uncomplicated; R05.3 Chronic cough; G47.33 Obstructive sleep apnea (adult) (pediatric) | CPT/HCPCS: 99212 ==

== ENCOUNTER → 2023-05-29 07:54 | Outpatient (REF) | payer MEDICAID, SELFPAY ==
--- NOTE | ~2023-05-29 | NM_ITS ---
EXAMINATION: NM PARATHYROID SCAN CLINICAL INFORMATION: Hyperparathyroidism, increased calcium and PTH. COMPARISON: A single radioisotope sestamibi parathyroid study dated 04/10/2022 is available for comparison. TECHNIQUE: A double radionuclide study of the thyroid bed region and upper chest in multiple projections was performed 4 hours after the oral administration of 1.0 millicuries I-123 sodium iodide and immediately following the intravenous administration of 30 mCi Tc-99m sestamibi. Repeat imaging was performed 2 hours later. The iodide images were electronically subtracted from the sestamibi images using different weighting factors. FINDINGS: There is homogeneous uptake of radioiodine throughout both lobes. The thyroid gland appears to be normal in size and shape. There are no focal areas of increased or diminished uptake. Technetium 99m sestamibi images demonstrate homogeneous thyroid activity. There is a subtle focus of slightly increased activity posterior to the lower pole of the right thyroid lobe, best visualized on the MÉNDEZ view at 20 minutes. This is probably also visualized on the delayed MÉNDEZ sestamibi images, but it appears this view may be due to greater by some patient motion. Computer-generated digital subtraction images show a small discrete focus of sestamibi excess posterior to the medial aspect of the lower pole of the right thyroid lobe. When compared to the prior 05/14/2022 study performed only with technetium 99m sestamibi, the focus of abnormal sestamibi activity described above on the current study corresponds well to the focus of sestamibi posterior to the lower pole of the right thyroid lobe visualized on the prior study. NC/NC parathyroid IMPRESSION: These findings are most consistent with a parathyroid adenoma posterior to the medial aspect of the lower pole of the right thyroid lobe. No other abnormalities suspicious for additional parathyroid lesions are visualized. There is homogeneous uptake of radioiodine in the thyroid gland which is also normal in size and shape.
== END ==
LOC: HO.NUCMED 07:54
PROVIDERS: PCP Internal Medicine; Visit Provider Internal Medicine
DX: E21.3 Hyperparathyroidism, unspecified (principal)
CPT/HCPCS: 78070; A9500; A9516

== ENCOUNTER 2023-05-30 08:58 | Outpatient (REF) | payer MEDICAID, SELFPAY ==
[2023-05-30 10:39] LABS: Parathyroid Hormone Intact 170.3 pg/mL (8.7-77.1)
[2023-05-30 10:59] LABS: Cholesterol 215 mg/dL (<200); HDL Cholesterol 54 mg/dL (>40); LDL Cholesterol Calculated 117 mg/dL (<100); Magnesium 1.6 mg/dL (1.6-2.6); Phosphorus 2.6 mg/dL (2.7-4.5); Triglycerides 220 mg/dL (<150)
[2023-05-30 11:17] LABS: Thyroid Stimulating Hormone 2.43 uIU/mL (0.32-4.0); Vitamin D 25-OH Total 30.9 ng/mL (>30)
== END 2023-05-30 08:59 | disposition home or self-care (01) ==
LOC: HO.LAB 08:58
PROVIDERS: PCP Internal Medicine; Visit Provider Internal Medicine
DX: Z00.01 Encounter for general adult medical examination with abnormal findings (principal); E03.9 Hypothyroidism, unspecified; E21.2 Other hyperparathyroidism; E78.00 Pure hypercholesterolemia, unspecified; E87.6 Hypokalemia
CPT/HCPCS: 36415; 80061; 82306; 83735; 83970; 84100; 84443

== ENCOUNTER 2023-06-12 14:30 | Outpatient (REF) | payer MEDICAID, SELFPAY ==
--- NOTE | ~2023-06-12 | MM_ITS ---
EXAMINATION: MM SCREENING DIGITAL BREAST TOMOSYNTHESIS, BILATERAL CLINICAL INFORMATION: Screening. Asymptomatic. The patient is status post excision of right breast atypical ductal hyperplasia of the upper outer quadrant. This occurred in 2019. COMPARISON: Mammography: This study is compared with prior exams dating back to 2018. TECHNIQUE: Digital breast tomosynthesis is performed in both the craniocaudal and mediolateral oblique views along with computer-aided detection (CAD). Synthesized 2D images are generated from the tomosynthesis. FINDINGS: There are scattered areas of fibroglandular density (ACR BI-RADS breast composition Category b). There are no significant masses, abnormal calcifications, or other abnormalities. MM/MM tomosynthesis screening BI IMPRESSION: No mammographic evidence of malignancy. ASSESSMENT: BI-RADS BI-RADS 1 - Negative RECOMMENDATION: Routine annual mammography screening. 1 year F/U This examination should not preclude the clinical evaluation of a suspicious palpable abnormality. This patient's information was entered into a reminder system with a target due date for their next mammogram.
== END 2023-06-12 14:31 | disposition home or self-care (01) ==
LOC: HO.MAMMO 14:30
PROVIDERS: PCP Internal Medicine; Visit Provider Internal Medicine
DX: Z12.31 Encounter for screening mammogram for malignant neoplasm of breast (principal)
CPT/HCPCS: 77063; 77067

== ENCOUNTER → 2023-06-12 14:30 | Outpatient (BNV) | payer MEDICAID, SELFPAY | PROVIDERS: PCP Internal Medicine; Visit Provider Radiology Diagnostic Radiology | DX: Z12.31 Encounter for screening mammogram for malignant neoplasm of breast (principal) | CPT/HCPCS: 77063; 77067 ==

== ENCOUNTER 2023-10-17 14:10 | Outpatient (AMB) | payer MEDICAID, SELFPAY ==
[2023-10-17 14:13] VITALS: PULSE 73; O2SAT 99; BMI 26.4
--- NOTE | 2023-10-17 14:13 | A.OFFVIS_ITS ---
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 She has been seen in multiple urgent care offices as well as the emergency department for this.? She was treated with 3 courses of prednisone, Tessalon and antibiotics with no improvement. She reports ongoing shortness of breath with exertion as well as coughing fits that are so severe it causes her to vomit and feel like she is going to pass out.? She has no associated chest pain or fevers.? She is a nonsmoker with no history of asthma or COPD.? She also reports that back in April she was having significant joint swelling in her hands and knees. She was evaluated by Rheumatology and awaiting bloodwork.? In the meantime she was noted to be dyspneic with crackles on examination. She was recommended to go to the ED. In the ED she was hypoxic to 84% with activity and CT chest with GGO bilaterally primarily at the bases. Covid testing negative. the patient was admitted to the hospital it was placed on pulse dose Solu- Medrol. Her symptoms improved and she was able to be discharged from the hospital. She did have a bowel extensive workup ruling out lupus, rheumatoid arthritis, HIV, vasculitis, hypersensitivity pneumonitis and also COVID. The blood work did demonstrate a slight eosinophilia bringing up the question of eosinophilic pneumonia. The patient was discharged home off oxygen. She was maintained on high doses of prednisone with a slow taper. Currently she is on 40 mg of prednisone tapering down by 10 mg every 5 days. she continues to have dyspnea on exertion. We did have her go for 6 minute walk testing the patient did qualify for oxygen becoming dyspneic and hypoxic. The patient will need oxygen supplementation with activity at this time. In the meantime explained to the patient that based on her CT scan in order to know definitively the etiology of her interstitial lung disease she would require a lung biopsy. However, the fact that she is on prednisone may actually decrease the yield of a biopsy at this time. It also will affect her healing process. Therefore, will taper her prednisone slowly until she is off and will repeat the CT scan to see if she has any residual findings. If she does have residual findings in the still a clear etiology has not been found for the interstitial lung disease then a biopsy will be warranted. 11/01/2022 patient is here for pulmonary follow-up visit. The patient overall has been doing relatively well. She did not tolerate the full does mycophenolate due to GI adverse effects. Therefore she continued with 3 capsules in the morning and 2 capsules at nighttime. She continues use her oxygen with good effect. She did follow-up in [place] and did not have any medication changes. She did have blood work done. She has been having constitutional symptoms including dizziness, lightheadedness and also has been having some issues with BP elevation. Therefore will go ahead and request additional blood work. 03/28/2023 the patient is here for pulmonary follow-up visit. Since we last saw evaluate her she has had significant GI adverse effects. Partly due to the combination of the all 5 and the mycophenolate. She has been having a lot of vomiting and does not tolerate all the foods. She continues to lose weight. Her primary care doctor had ordered blood work and demonstrated significant abnormalities with a potassium the magnesium and phosphorus. I did send her repeat placement therapies. The patient also gets very nauseous therefore Zofran may be helpful in minimizing the symptoms. In the meantime I did send her the lower dose all 5 of 100 that she can try for a month and also she will take a break this we can overall. In addition to that the mycophenolate will decrease down to 2 tablets in the morning and 1 at night and then hopefully she if she feels better she can increase it to 2 in the morning and 2 at nighttime. She does have a follow-up with her specialist in [place] coming up. Not sure she is going to have additional imaging at that time. Otherwise will do imaging around here. She continues use oxygen with activity with good effect. Overall the respiratory condition has been stable with current medications. 05/09/2023 The patient is here for pulmonary follow-up visit. The patient is doing much better from the GI side effects. She is tolerating the lower dose Ofev 100 mg. she was also able to slowly increase the mycophenolate to 3 g a day. Her electrolytes are now normalized which is reassuring. The patient continues to have shortness of breath and dyspnea due to her interstitial lung disease. She does have oxygen supplementation available. The oxygen is beneficial ineffective for her. She does have a follow-up in [place] coming up in the springtime at which time she will undergo a CT scan of the chest. I am hopeful that her disease state is normalized and also hopeful that she can tolerate a lower dose of mycophenolate if it is appropriate. Recently, started developing URI symptoms. +sick contact. 10/17/2023 the patient is here for a pulmonary follow-up visit. Overall the patient has been doing a little better from a GI standpoint. She has been tolerating the lower dose Ofev. She has also been tolerating the mycophenolate 2 g a day. Recently she did get sick as after she was exposed to powder in her room. She started developing worsening cough chest congestion also sinusitis. She has been having hard time breathing through her nose. She has been having to use her oxygen more regularly. She does have a productive cough with green sputum. This has been the case for the last week. Does not seem to be getting any better. She does have a follow-up in [place] coming up in the next few weeks. She is scheduled to undergo PFTs and a CT scan of the chest. Therefore, will go ahead and treat her for lower respiratory infection she is congested. Will hold off on any prednisone at this time. If the patient does not improve she can call me early next week and I will send her a course of prednisone. [facility] Medical History (Updated 03/31/23 @ 08:07 by Minesh Randall MD) Asthma Chronic respiratory failure NSIP (nonspecific interstitial pneumonia) ILD (interstitial lung disease) Cough Acute respiratory failure Pneumonitis Hypothyroid Diabetes HTN (hypertension) Surgical History History of lung surgery (~2021) History of partial mastectomy of right breast (~2018) History of lithotripsy (~2005) History of colonoscopy (~2017) History of tubal ligation (~1995) History of Family History Father Cardiomyopathy Mother No problems noted. Social History Household Members: Children Housing: House Do you presently have visiting nurse or other home services: No Alcohol intake: never Patient Tobacco Use Status: Never used Tobacco Second Hand Smoke Exposure: No service: No Current occupational status: retired Review of Systems Const Denies chills, Denies fatigue, Denies fever(s), Denies frequent falls, Reports headache(s), Denies weakness, Denies weight gain and Reports weight loss ENT Reports dizziness, Reports headache(s), Reports nasal congestion, Reports nasal discharge, Reports post nasal drip and Reports sinus pressure Card Denies chest pain, Denies leg edema, Denies lightheadedness, Denies palpitations, Denies dyspnea, Reports dyspnea on exertion, Denies orthopnea and Denies other (Loss of consciousness) Resp Denies change in phlegm color, Reports chest congestion, Reports cough, Denies dyspnea and Reports dyspnea on exertion GI Denies hematochezia, Denies change in bowel habits, Reports dyspepsia, Reports diarrhea, Reports nausea and Reports vomiting Musc Denies abnormal gait, Denies muscle weakness, Denies numbness, Denies radiating pain into limb and Denies tingling Neuro Denies abnormal gait, Reports dizziness, Denies frequent falls, Reports headache(s), Denies numbness, Denies tingling and Denies weakness Endo Denies fatigue and Denies palpitations Physical Exam Vital Signs: Last Vital Signs Pulse 73 10/17/23 14:13 Pulse Ox 99 10/17/23 14:13 Oxygen Delivery Method Room Air 10/17/23 14:13 BMI result Body Mass Index 26.4 Const General: cooperative, healthy appearing, comfortable and no acute distress Neck Neck: Yes normal visual inspection Chest Chest palpation & inspection: normal inspection of the chest Resp Auscultation: crackles, no rhonchi, no wheezes and diminished lung sounds Cardio Rate: regular rate Rhythm: regular rhythm Heart sounds: S1 normal heart sound present, S2 normal heart sound present, no gallops, no murmurs and no rubs GI Inspection: Yes normal to inspection Extrem General: Yes normal to inspection and No no pedal edema Psych Appearance: grossly normal Mental Status: mental status grossly normal Assessment & Plan Assessment & Plan (1) ILD (interstitial lung disease): Code(s): J84.9 - Interstitial pulmonary disease, unspecified Category: Medical (2) NSIP (nonspecific interstitial pneumonia): Comment: biopsy-proven. 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 Code(s): J84.89 - Other specified interstitial pulmonary diseases Category: Medical (3) Chronic respiratory failure: Code(s): J96.10 - Chronic respiratory failure, unspecified whether with hypoxia or hypercapnia Category: Medical Qualifiers: Respiratory failure complication: hypoxia Qualified Code(s): J96.11 - Chronic respiratory failure with hypoxia (4) Cough: Code(s): R05.9 - Cough, unspecified Category: Medical Qualifiers: Cough type: chronic Qualified Code(s): R05.3 - Chronic cough (5) Asthma: Code(s): J45.909 - Unspecified asthma, uncomplicated Category: Medical Qualifiers: Asthma complication type: uncomplicated Asthma persistence: persistent Asthma severity: moderate Qualified Code(s): J45.40 - Moderate persistent asthma, uncomplicated (6) Obstructive sleep apnea syndrome: Code(s): G47.33 - Obstructive sleep apnea (adult) (pediatric) Category: Medical Plan continue Ofev 100mg CellCept 1500mg BID start Aumentin start Fluticasone nasal spray x 1 month Continue oxygen supplementation, 2 L/pulse with activity. The patient needs a POC for better portability outside of the home Pulmonary rehab Short-acting beta agonist as needed Bloodwork will F/U with [facility] ILD clinic Gabapentin at night Follow-up in 3-4 months Orders: Orders Basic Metabolic Panel 10/17/23 J84.89 - Other specified interstitial pulmonary diseases, J84.9 - Interstitial pulmonary disease, unspecified Complete Blood Count Auto Diff 10/17/23 J84.89 - Other specified interstitial pulmonary diseases, J84.9 - Interstitial pulmonary disease, unspecified Liver Panel 10/17/23 J84.89 - Other specified interstitial pulmonary diseases, J84.9 - Interstitial pulmonary disease, unspecified Medications: New fluticasone propionate 50 mcg/actuation 2 sprays intranasal DAILY 15.8 mL 1RF 30 days J31.0 - Chronic rhinitis Changed From amoxicillin-pot clavulanate 875-125 mg 1 tab PO BID 10 days 20 tabs 0RF To amoxicillin-pot clavulanate 875-125 mg 1 tab PO BID 28 tabs 0RF 14 days Coding Level of Care Code Est Pt Level 4 (64709) Diagnoses ILD (interstitial lung disease) J84.9 NSIP (nonspecific interstitial pneumonia) J84.89 Chronic respiratory failure with hypoxia J96.11 Respiratory failure complication: hypoxia Chronic cough R05.3 Cough type: chronic Moderate persistent asthma without complication J45.40 Asthma complication type: uncomplicated Asthma persistence: persistent Asthma severity: moderate Obstructive sleep apnea syndrome G47.33 Time Spent (min) 17
== END 2023-10-17 14:36 | disposition home or self-care (01) ==
PROVIDERS: PCP Internal Medicine; Referring Provider Internal Medicine; Visit Provider Hospitalist
DX: J84.9 Interstitial pulmonary disease, unspecified (principal); J84.89 Other specified interstitial pulmonary diseases; J96.11 Chronic respiratory failure with hypoxia; R05.3 Chronic cough; J45.40 Moderate persistent asthma, uncomplicated; G47.33 Obstructive sleep apnea (adult) (pediatric)
CPT/HCPCS: 99214

== ENCOUNTER → 2023-10-17 14:10 | Outpatient (BNVA) | payer MEDICAID, SELFPAY | PROVIDERS: PCP Internal Medicine; Visit Provider Hospitalist | DX: J84.9 Interstitial pulmonary disease, unspecified (principal); J84.89 Other specified interstitial pulmonary diseases; J96.11 Chronic respiratory failure with hypoxia; J45.40 Moderate persistent asthma, uncomplicated; G47.33 Obstructive sleep apnea (adult) (pediatric); R05.3 Chronic cough | CPT/HCPCS: 99212 ==

== ENCOUNTER 2023-12-18 13:34 | Outpatient (AMB) | payer MEDICAID, SELFPAY ==
--- NOTE | 2023-12-18 13:57 | A.OFFVIS_ITS ---
Intake Visit Reasons: 6 Mins Evaluation Allergies oxycodone [Percocet] Allergy (Severe, Verified 10/17/23 14:15) nausea and vomiting [facility] Medical History (Updated 03/31/23 @ 08:07 by Minesh Randall MD) Asthma Chronic respiratory failure NSIP (nonspecific interstitial pneumonia) ILD (interstitial lung disease) Cough Acute respiratory failure Pneumonitis Hypothyroid Diabetes HTN (hypertension) Surgical History History of lung surgery (~2021) History of partial mastectomy of right breast (~2018) History of lithotripsy (~2005) History of colonoscopy (~2017) History of tubal ligation (~1995) History of Family History Father Cardiomyopathy Mother No problems noted. Social History Household Members: Children Housing: House Do you presently have visiting nurse or other home services: No Alcohol intake: never Patient Tobacco Use Status: Never used Tobacco Second Hand Smoke Exposure: No service: No Current occupational status: retired Office Procedures 6 Minute Walk Time:: 13:41 SPO2 % at rest: 98 Pulse at rest: 85 SPO2 % during excercise: 97 Pulse during excercise: 114 SPO2 % after excercise: 98 Pulse after excercise: 100 Distance in yards walked: 300 Performance Observations:: Patient walked unassisted on level ground at moderate pace. Patient maintained O2 saturation of 97-98% with pulse rate of 114 or less for the entirety of the walk.Denies shortness of breath. Patient did not require the use of supplemental O2. 73410 - 6 Minute Walk Assessment & Plan Assessment & Plan (1) ILD (interstitial lung disease): Code(s): J84.9 - Interstitial pulmonary disease, unspecified Category: Medical Plan 6MWT, did not qualify for oxygen. HR did increase to 141b/min at the max exercise Orders: Orders AMB 6 minute walk Today J84.9 - Interstitial pulmonary disease, unspecified Coding Level of Care Code Est Pt Level 1 (54232) Diagnoses ILD (interstitial lung disease) J84.9 CPT Codes Coding ([id number])
[2023-12-18 14:04] VITALS: PULSE 85; O2SAT 98
== END 2023-12-18 13:51 | disposition home or self-care (01) ==
PROVIDERS: PCP Internal Medicine; Visit Provider Hospitalist
DX: J84.9 Interstitial pulmonary disease, unspecified (principal)
CPT/HCPCS: 94618

== ENCOUNTER → 2023-12-18 13:34 | Outpatient (BNVA) | payer MEDICAID, SELFPAY | PROVIDERS: PCP Internal Medicine; Visit Provider Hospitalist | DX: J84.9 Interstitial pulmonary disease, unspecified (principal) | CPT/HCPCS: 94618; 99211 ==

== ENCOUNTER 2024-03-20 08:18 | Outpatient (REF) | payer MEDICAID, SELFPAY ==
[2024-03-20 08:36] LABS: MANUAL DIFF FLAG NO
[2024-03-20 09:14] LABS: Basophils Absolute Auto 0.1 X10*3/uL (0.0-0.2); Basophils Percent Auto 0.8 % (0-2); Eosinophils Absolute Auto 0.3 X10*3/uL (0.0-0.4); Eosinophils Percent Auto 4.3 % (0-4); Hematocrit 42.1 % (37.0-47.0); Imm Gran Abs Auto 0.02 X10*3/uL (0.00-0.03); Imm Gran Pct Auto 0.3 % (0.0-0.4); Lymphocytes Absolute Auto 2.5 X10*3/uL (1.2-4.9); Lymphocytes Percent Auto 33.2 % (20-40); Mean Corpuscular HGB Conc 33.3 g/dl (31.0-35.0); Mean Corpuscular Hemoglobin 29.4 pg (27.0-33.0); Mean Corpuscular Volume 88.4 fL (80.0-98.0); Mean Platelet Volume 12.4 fL (9.4-12.3); Monocytes Absolute Auto 0.7 X10*3/uL (0.1-1.2); Monocytes Percent Auto 9.5 % (2-11); Neutrophils Absolute Auto 3.9 x10*3/uL (2.0-8.3); Neutrophils Percent Auto 51.9 % (45-73); Platelet Count 198 X10*3/uL (160-400); Red Blood Count 4.76 X10*6/uL (4.20-5.50); Red Cell Distribution Width 12.6 % (11.0-16.0); White Blood Count 7.5 X10*3/uL (4.8-10.8)
[2024-03-20 09:22] LABS: Estimated Average Glucose 111 mg/dL; Hemoglobin A1c % 5.5 % (<6.0); Total Hemoglobin (HGBA1C) 3454.5568 umol/L
[2024-03-20 10:01] LABS: Parathyroid Hormone Intact 258.3 pg/mL (8.7-77.1)
[2024-03-20 10:04] LABS: Alanine Aminotransferase 18 U/L (0-31); Albumin Level 4.1 g/dL (3.5-5.0); Alkaline Phosphatase 105 U/L (39-117); Anion Gap 13 (12-20); Aspartate Amino Transferase 18 U/L (5-31); Bilirubin Total 0.3 mg/dL (0.0-1.0); Blood Urea Nitrogen 22 mg/dL (9-16); Calcium 10.2 mg/dL (8.4-10.2); Carbon Dioxide 27 mmol/L (22-29); Chloride 103 mmol/L (96-108); Cholesterol 246 mg/dL (<200); Estimated Glomerular Filt Rate > 60; Glucose Random 97 mg/dL (60-115); HDL Cholesterol 57 mg/dL (>40); LDL Cholesterol Calculated 147 mg/dL (<100); Potassium 3.8 mmol/L (3.3-5.1); Sodium 139 mmol/L (135-145); Total Protein 6.9 g/dL (6.5-8.0); Triglycerides 212 mg/dL (<150)
[2024-03-20 10:19] LABS: Ferritin 144 ng/mL (10-250); Thyroid Stimulating Hormone 2.32 uIU/mL (0.32-4.0)
== END 2024-03-20 08:19 | disposition home or self-care (01) ==
LOC: HO.LAB 08:18
PROVIDERS: PCP Internal Medicine; Visit Provider Internal Medicine
DX: D35.1 Benign neoplasm of parathyroid gland (principal); E03.9 Hypothyroidism, unspecified; E21.0 Primary hyperparathyroidism; J01.90 Acute sinusitis, unspecified
CPT/HCPCS: 36415; 80053; 80061; 82728; 83036; 83970; 84100; 84443; 85025

== ENCOUNTER 2024-04-22 14:35 | Outpatient (AMB) | payer MEDICAID, SELFPAY ==
--- NOTE | 2024-04-22 14:47 | A.OFFVIS_ITS ---
Vital Signs 04/22/24 14:48 Height 5 ft 1 in Weight 152 lb 1.903 oz BMI 28.7 BP 126/64 Blood Pressure Location Lt brachial Position Sitting Pulse 73 Pulse Source Pulse Oximeter Pulse Oximetry (%) 100 Oxygen Delivery Method Room Air Intake Visit Reasons: ILD Allergies oxycodone [Percocet] Allergy (Severe, Verified 04/22/24 14:51) nausea and vomiting HPI Comments Details: The patient is a 58 y/o female with history of diabetes, HTN, HLD who presents to the ER with ongoing shortness of breath and coughing episodes since March.? She has been seen in multiple urgent care offices as well as the emergency department for this.? She was treated with 3 courses of prednisone, Tessalon and antibiotics with no improvement. She reports ongoing shortness of breath with exertion as well as coughing fits that are so severe it causes her to vomit and feel like she is going to pass out.? She has no associated chest pain or f denny.? She is a nonsmoker with no history of asthma or COPD.? She also reports that back in April she was having significant joint swelling in her hands and knees. She was evaluated by Rheumatology and awaiting bloodwork.? In the meantime she was noted to be dyspneic with crackles on examination. She was recommended to go to the ED. In the ED she was hypoxic to 84% with activity and CT chest with GGO bilaterally primarily at the bases. Covid testing negative. the patient was admitted to the hospital it was placed on pulse dose Solu- Medrol. Her symptoms improved and she was able to be discharged from the hospital. She did have a bowel extensive workup ruling out lupus, rheumatoid arthritis, HIV, vasculitis, hypersensitivity pneumonitis and also COVID. The blood work did demonstrate a slight eosinophilia bringing up the question of eosinophilic pneumonia. The patient was discharged home off oxygen. She was maintained on high doses of prednisone with a slow taper. Currently she is on 40 mg of prednisone tapering down by 10 mg every 5 days. she continues to have dyspnea on exertion. We did have her go for 6 minute walk testing the patient did qualify for oxygen becoming dyspneic and hypoxic. The patient will need oxygen supplementation with activity at this time. In the meantime explained to the patient that based on her CT scan in order to know definitively the reyna ology of her interstitial lung disease she would require a lung biopsy. However, the fact that she is on prednisone may actually decrease the yield of a biopsy at this time. It also will affect her healing process. Therefore, will taper her prednisone slowly until she is off and will repeat the CT scan to see if she has any residual findings. If she does have residual findings in the still a clear etiology has not been found for the interstitial lung disease then a biopsy will be warranted. 11/01/2022 patient is here for pulmonary follow-up visit. The patient overall has been doing relatively well. She did not tolerate the full does mycophenolate due to GI adverse effects. Therefore she continued with 3 capsules in the morning and 2 capsules at nighttime. She continues use her oxyg en with good effect. She did follow-up in [place] and did not have any medication changes. She did have blood work done. She has been having constitutional symptoms including dizziness, lightheadedness and also has been having some issues with BP elevation. Therefore will go ahead and request additional blood work. 03/28/2023 the patient is here for pulmonary follow-up visit. Since we last saw evaluate her she has had significant GI adverse effects. Partly due to the combination of the all 5 and the mycophenolate. She has been having a lot of vomiting and does not tolerate all the foods. She continues to lose weight. Her primary care doctor had ordered blood work and demonstrated significant abnormalities with a potassium the magnesium and phosphorus. I did send her repeat placement therapies. The patient also gets very nauseous therefore Zofran may be helpful in minimizing the symptoms. In the meantime I did send her the lower dose all 5 of 100 that she can try for a month and also she will take a break this we can overall. In addition to that the mycophenolate will decrease down to 2 tablets in the morning and 1 at night and then hopefully she if she feels better she can increase it to 2 in the morning and 2 at nighttime. She does have a follow-up with her specialist in [place] coming up. Not sure she is going to have additional imaging at that time. Otherwise will do imaging around here. She continues use oxygen with activity with good effect. Overall the respiratory condition has been stable with current medications. 05/09/2023 The patient is here for pulmonary follow-up visit. The patient is doing much better from the GI side effects. She is tolerating the lower dose Ofev 100 mg. she was also able to slowly increase the mycophenolate to 3 g a da y. Her electrolytes are now normalized which is reassuring. The patient continues to have shortness of breath and dyspnea due to her interstitial lung disease. She does have oxygen supplementation available. The oxygen is beneficial ineffective for her. She does have a follow-up in [place] coming up in the springtime at which time she will undergo a CT scan of the chest. I am hopeful that her disease state is normalized and also hopeful that she can tolerate a lower dose of mycophenolate if it is appropriate. Recently, started developing URI symptoms. +sick contact. 10/17/2023 the patient is here for a pulmonary follow-up visit. Overall the patient has been doing a little better from a GI standpoint. She has been tolerating the lower dose Ofev. She has also been tolerating the mycophenolate 2 g a day. Recently she did get sick as after she was exposed to powder in her room. She started developing worsening cough chest congestion also sinusitis. She has been having hard time breathing through her nose. She has been having to use her oxygen more regularly. She does have a productive cough with green sputum. This has been the case for the last week. Does not seem to be getting any better. She does have a follow-up in [place] coming up in the next few weeks. She is scheduled to undergo PFTs and a CT scan of the chest. Therefore, will go ahead and treat her for lower respiratory infection she is congested. Will hold off on any prednisone at this time. If the patient does not improve she can call me early next week and I will send her a course of prednisone. 04/22/2024 the patient is here for a pulmonary follow-up visit. The patient has been sick now for about a week. Positive sick contacts in the family. Started developing a could congested cough. Flow phlegm is clear. Denies any chest pain. Although she does have chest tightness and wheezing. She has not been using the nebulizer. The patient has been using the oxygen more regularly. On examination she does not have any significant wheezing or rhonchi. Will go ahead and start her on some antibiotics for lower respiratory infection specially with immunocompromised state also will go ahead and provide her with ampules for her nebulizer for her to be able to do that at least twice a day to provide CPT mucus clearance and bronchodilation. Inpatient can use cough medication at nighttime decided on the coughing be able to sleep. If her symptoms do not improve she can always call for further evaluation. Will try to hold off on giving her prednisone at this time although if she does have a worsening chest tightness and wheezing she can call and I can send a prescription. The patient is going to follow-up in May to get another CT scan and also to consider a change in her regimen if necessary. will follow-up sometime in the springtime if any issues arise she will call for an earlier assessment [facility] Medical History (Updated 04/22/24 @ 20:37 by Minesh Randall MD) Asthma Chronic respiratory failure NSIP (nonspecific interstitial pneumonia) ILD (interstitial lung disease) Cough Acute respiratory failure Pneumonitis Hypothyroid Diabetes HTN (hypertension) Surgical History History of lung surgery (~2021) History of partial mastectomy of right breast (~2018) History of lithotripsy (~2005) History of colonoscopy (~2017) History of tubal ligation (~1995) History of Family History Father Cardiomyopathy Mother No problems noted. Social History Household Members: Children Housing: House Do you presently have visiting nurse or other home services: No Alcohol intake: never Patient Tobacco Use Status: Never used Tobacco Second Hand Smoke Exposure: No service: No Current occupational status: retired Review of Systems Const Denies chills, Denies fatigue, Denies fever(s), Denies frequent falls, Denies weakness, Denies weight gain and Reports weight loss ENT Reports nasal congestion, Denies post nasal drip and Denies sinus pressure Card Denies chest pain, Denies leg edema, Denies lightheadedness, Denies palpitations, Denies dyspnea, Reports dyspnea on exertion, Denies orthopnea and Denies other (Loss of consciousness) Resp Denies change in phlegm color, Reports chest congestion, Reports cough, Denies dyspnea and Reports dyspnea on exertion GI Denies hematochezia, Denies change in bowel habits, Reports dyspepsia and Reports diarrhea Musc Denies abnormal gait, Denies muscle weakness, Denies numbness, Denies radiating pain into limb and Denies tingling Neuro Denies abnormal gait, Denies frequent falls, Denies numbness, Denies tingling and Denies weakness Endo Denies fatigue and Denies palpitations Physical Exam Vital Signs: Last Vital Signs Pulse 73 04/22/24 14:48 BP 126/64 04/22/24 14:48 Pulse Ox 100 04/22/24 14:48 Oxygen Delivery Method Room Air 04/22/24 14:48 BMI result Body Mass Index 28.7 Const General: cooperative, healthy appearing, comfortable and no acute distress Neck Neck: Yes normal visual inspection Chest Chest palpation & inspection: normal inspection of the chest Resp Effort & Inspection: Actively coughing Quality: productive Auscultation: crackles, no rhonchi, no wheezes and diminished lung sounds Cardio Rate: regular rate Rhythm: regular rhythm Heart sounds: S1 normal heart sound present, S2 normal heart sound present, no gallops, no murmurs and no rubs GI Inspection: Yes normal to inspection Extrem General: Yes normal to inspection and No no pedal edema Psych Appearance: grossly normal Mental Status: mental status grossly normal Assessment & Plan Assessment & Plan (1) ILD (interstitial lung disease): Code(s): J84.9 - Interstitial pulmonary disease, unspecified Category: Medical (2) NSIP (nonspecific interstitial pneumonia): Comment: biopsy-proven. 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 Code(s): J84.89 - Other specified interstitial pulmonary diseases Category: Medical (3) Chronic respiratory failure: Code(s): J96.10 - Chronic respiratory failure, unspecified whether with hypoxia or hypercapnia Category: Medical Qualifiers: Respiratory failure complication: hypoxia Qualified Code(s): J96.11 - Chronic respiratory failure with hypoxia (4) Cough: Code(s): R05.9 - Cough, unspecified Category: Medical Qualifiers: Cough type: chronic Qualified Code(s): R05.3 - Chronic cough (5) Asthma: Code(s): J45.909 - Unspecified asthma, uncomplicated Category: Medical Qualifiers: Asthma complication type: uncomplicated Asthma persistence: persistent Asthma severity: moderate Qualified Code(s): J45.40 - Moderate persistent asthma, uncomplicated (6) Obstructive sleep apnea syndrome: Code(s): G47.33 - Obstructive sleep apnea (adult) (pediatric) Category: Medical (7) Bronchitis: Code(s): J40 - Bronchitis, not specified as acute or chronic Category: Medical Plan continue Ofev 100mg CellCept 1500mg BID start Doxycycline cough medicine Continue oxygen supplementation, 2 L/pulse with activity. The patient needs a POC for better portability outside of the home Pulmonary rehab Short-acting beta agonist as needed Nebulizer therapy BID as needed will F/U with [facility] ILD clinic Gabapentin at night Follow-up in 3-4 months Medications: New doxycycline hyclate 100 mg PO BID 20 caps 0RF 10 days codeine-guaifenesin 10-100 mg/5 mL 10 mL PO Q6H PRN 300 mL 0RF cough 10 days albuterol sulfate 2.5 mg (3 mL) inhalation Q6H PRN 180 mL 11RF shortness of breath or wheezing 30 days Coding Level of Care Code Est Pt Level 4 (02363) Complex EM visit Add On G2211 Diagnoses ILD (interstitial lung disease) J84.9 NSIP (nonspecific interstitial pneumonia) J84.89 Chronic respiratory failure with hypoxia J96.11 Respiratory failure complication: hypoxia Chronic cough R05.3 Cough type: chronic Moderate persistent asthma without complication J45.40 Asthma complication type: uncomplicated Asthma persistence: persistent Asthma severity: moderate Obstructive sleep apnea syndrome G47.33 Bronchitis J40 Time Spent (min) 17
[2024-04-22 14:48] VITALS: BP 126/64; PULSE 73; O2SAT 100; BMI 28.7
== END 2024-04-22 15:11 | disposition home or self-care (01) ==
PROVIDERS: PCP Internal Medicine; Visit Provider Hospitalist
DX: J84.9 Interstitial pulmonary disease, unspecified (principal); J84.89 Other specified interstitial pulmonary diseases; J96.11 Chronic respiratory failure with hypoxia; R05.3 Chronic cough; J45.40 Moderate persistent asthma, uncomplicated; G47.33 Obstructive sleep apnea (adult) (pediatric); J40 Bronchitis, not specified as acute or chronic
CPT/HCPCS: 99214

== ENCOUNTER → 2024-04-22 14:35 | Outpatient (BNVA) | payer MEDICAID, SELFPAY | PROVIDERS: PCP Internal Medicine; Visit Provider Hospitalist | DX: J45.40 Moderate persistent asthma, uncomplicated (principal); J84.89 Other specified interstitial pulmonary diseases; J96.11 Chronic respiratory failure with hypoxia; R05.3 Chronic cough; J40 Bronchitis, not specified as acute or chronic; G47.33 Obstructive sleep apnea (adult) (pediatric) | CPT/HCPCS: 99212 ==

== ENCOUNTER 2024-06-14 07:57 | Outpatient (REF) | payer MEDICAID, SELFPAY | END 2024-06-14 07:58 | disposition home or self-care (01) | LOC: HO.MAMMO 07:57 | PROVIDERS: PCP Internal Medicine; Visit Provider Obstetrics & Gynecology | DX: Z12.31 Encounter for screening mammogram for malignant neoplasm of breast (principal) | CPT/HCPCS: 77063; 77067 ==

== ENCOUNTER → 2024-06-14 08:15 | Outpatient (BNV) | payer MEDICAID, SELFPAY | PROVIDERS: PCP Internal Medicine; Visit Provider Internal Medicine | DX: Z12.31 Encounter for screening mammogram for malignant neoplasm of breast (principal) | CPT/HCPCS: 77063; 77067 ==

== ENCOUNTER 2024-10-07 14:15 | Outpatient (AMB) | payer MEDICAID, SELFPAY ==
[2024-10-07 14:32] VITALS: BP 142/82; PULSE 81; O2SAT 98; BMI 30.4
--- NOTE | 2024-10-07 14:32 | A.OFFVIS_ITS ---
Vital Signs 10/07/24 14:32 Height 5 ft 1 in Weight 160 lb 14.999 oz BMI 30.4 BP 142/82 H Blood Pressure Location Lt brachial Position Sitting Pulse 81 Pulse Source Pulse Oximeter Pulse Oximetry (%) 98 Oxygen Delivery Method Room Air Intake Visit Reasons: [facility] Center Manager Required: No Accompanied by: Self / Same As Patient Allergies oxycodone [Percocet] Allergy (Severe, Verified 10/07/24 14:36) nausea and vomiting HPI Comments Details: The patient is a 59 y/o female with history of diabetes, HTN, HLD who presents to the ER with ongoing shortness of breath and coughing episodes since March.? She has been seen in multiple urgent care offices as well as the emergency department for this.? She was treated with 3 courses of prednisone, Tessalon and antibiotics with no improvement. She reports ongoing shortness of breath with exertion as well as coughing fits that are so severe it causes her to vomit and feel like she is going to pass out.? She has no associated chest pain or fevers.? She is a nonsmoker with no history of asthma or COPD.? She also reports that back in April she was having significant joint swelling in her hands and knees. She was evaluated by Rheumatology and awaiting bloodwork.? In the meantime she was noted to be dyspneic with crackles on examination. She was recommended to go to the ED. In the ED she was hypoxic to 84% with activity and CT chest with GGO bilaterally primarily at the bases. Covid testing negative. the patient was admitted to the hospital it was placed on pulse dose Solu- Medrol. Her symptoms improved and she was able to be discharged from the hospital. She did have a bowel extensive workup ruling out lupus, rheumatoid arthritis, HIV, vasculitis, hypersensitivity pneumonitis and also COVID. The blood work did demonstrate a slight eosinophilia bringing up the question of eosinophilic pneumonia. The patient was discharged home off oxygen. She was maintained on high doses of prednisone with a slow taper. Currently she is on 40 mg of prednisone tapering down by 10 mg every 5 days. she continues to have dyspnea on exertion. We did have her go for 6 minute walk testing the patient did qualify for oxygen becoming dyspneic and hypoxic. The patient will need oxygen supplementation with activity at this time. In the meantime explained to the patient that based on her CT scan in order to know definitively the etiology of her interstitial lung disease she would require a lung biopsy. However, the fact that she is on prednisone may actually decrease the yield of a biopsy at this time. It also will affect her healing process. Therefore, will taper her prednisone slowly until she is off and will repeat the CT scan to see if she has any residual findings. If she does have residual findings in the still a clear etiology has not been found for the interstitial lung disease then a biopsy will be warranted. 11/01/2022 patient is here for pulmonary follow-up visit. The patient overall has been doing relatively well. She did not tolerate the full does mycophenolate due to GI adverse effects. Therefore she continued with 3 capsules in the morning and 2 capsules at nighttime. She continues use her oxygen with good effect. She did follow-up in [place] and did not have any medication changes. She did have blood work done. She has been having constitutional symptoms including dizziness, lightheadedness and also has been having some issues with BP elevation. Therefore will go ahead and request additional blood work. 03/28/2023 the patient is here for pulmonary follow-up visit. Since we last saw evaluate her she has had significant GI adverse effects. Partly due to the combination of the all 5 and the mycophenolate. She has been having a lot of vomiting and does not tolerate all the foods. She continues to lose weight. Her primary care doctor had ordered blood work and demonstrated significant abnormalities with a potassium the magnesium and phosphorus. I did send her repeat placement therapies. The patient also gets very nauseous therefore Zofran may be helpful in minimizing the symptoms. In the meantime I did send her the lower dose all 5 of 100 that she can try for a month and also she will take a break this we can overall. In addition to that the mycophenolate will decrease down to 2 tablets in the morning and 1 at night and then hopefully she if she feels better she can increase it to 2 in the morning and 2 at nighttime. She does have a follow-up with her specialist in [place] coming up. Not sure she is going to have additional imaging at that time. Otherwise will do imaging around here. She continues use oxygen with activity with good effect. Overall the respiratory condition has been stable with current medications. 05/09/2023 The patient is here for pulmonary follow-up visit. The patient is doing much better from the GI side effects. She is tolerating the lower dose Ofev 100 mg. she was also able to slowly increase the mycophenolate to 3 g a day. Her electrolytes are now normalized which is reassuring. The patient continues to have shortness of breath and dyspnea due to her interstitial lung disease. She does have oxygen supplementation available. The oxygen is beneficial ineffective for her. She does have a follow-up in [place] coming up in the springtime at which time she will undergo a CT scan of the chest. I am hopeful that her disease state is normalized and also hopeful that she can tolerate a lower dose of mycophenolate if it is appropriate. Recently, started developing URI symptoms. +sick contact. 10/17/2023 the patient is here for a pulmonary follow-up visit. Overall the patient has been doing a little better from a GI standpoint. She has been tolerating the lower dose Ofev. She has also been tolerating the mycophenolate 2 g a day. Recently she did get sick as after she was exposed to powder in her room. She started developing worsening cough chest congestion also sinusitis. She has been having hard time breathing through her nose. She has been having to use her oxygen more regularly. She does have a productive cough with green sputum. This has been the case for the last week. Does not seem to be getting any better. She does have a follow-up in [place] coming up in the next few wee ks. She is scheduled to undergo PFTs and a CT scan of the chest. Therefore, will go ahead and treat her for lower respiratory infection she is congested. Will hold off on any prednisone at this time. If the patient does not improve she can call me early next week and I will send her a course of prednisone. 04/22/2024 the patient is here for a pulmonary follow-up visit. The patient has been sick now for about a week. Positive sick contacts in the family. Started developing a could congested cough. Flow phlegm is clear. Denies any chest pain. Although she does have chest tightness and wheezing. She has not been using the nebulizer. The patient has been using the oxygen more regularly. On examination she does not have any significant wheezing or rhonchi. Will go ahead and start her on some antibiotics for lower respiratory infection specially with immunocompromised state also will go ahead and provide her with ampules for her nebulizer for her to be able to do that at least twice a day to provide CPT mucus clearance and bronchodilation. Inpatient can use cough medication at nighttime decided on the coughing be able to sleep. If her symptoms do not improve she can always call for further evaluation. Will try to hold off on giving her prednisone at this time although if she does have a worsening chest tightness and wheezing she can call and I can send a prescript ion. The patient is going to follow-up in [place] May to get another CT scan and also to consider a change in her regimen if necessary. will follow-up sometime in the springtime if any issues arise she will call for an earlier assessment 10/07/2024 the patient is here for pulmonary follow-up visit. Overall she is doing fair. She started developing worsening cough the last few days. Is keepi ng her up at nighttime moderate severity. She also has been using the oxygen little bit more often. She continues on the mycophenolate 3 g a day in addition to taking the Ofev 100 mg twice a day. Seems to be tolerating this regimen well. She did have a CT scan in [place] in addition to a PFT. I do not have those results. There was discussion about switching over to Rituxan to see if we can get a maximum affect improvement overall. However, the patient is really reluctant since she she has been stable on the current regimen and is worried that she could develop worsening adverse effects from the stronger immunosuppressant therapy her therefore is unlikely that she is going to go ahead and start the Rituxan. She will continue with current regimen. The patient will go ahead and follow-up in [place]. She can always just follow-up with us and we can follow the blood work PFTs and CAT scans here and if there is any worsening of disease we can send her back to [place]. She will think about that otherwise she will follow-up with us in 3-4 months and she will get blood work to make sure she is tolerating her medicine. [facility] Medical History (Updated 04/22/24 @ 20:37 by Minesh Randall MD) Asthma Chronic respiratory failure NSIP (nonspecific interstitial pneumonia) ILD (interstitial lung disease) Cough Acute respiratory failure Pneumonitis Hypothyroid Diabetes HTN (hypertension) Surgical History History of lung surgery (~2021) History of partial mastectomy of right breast (~2018) History of lithotripsy (~2005) History of colonoscopy (~2017) History of tubal ligation (~1995) History of Family History Father Cardiomyopathy Mother No problems noted. Social History Household Members: Children Housing: House Do you presently have visiting nurse or other home services: No Alcohol intake: never Patient Tobacco Use Status: Never used Tobacco Second Hand Smoke Exposure: No service: No Current occupational status: retired Review of Systems Const Denies chills, Denies fatigue, Denies fever(s), Denies weight gain and Denies weight loss ENT Denies dizziness Card Denies chest pain, Denies leg edema, Denies lightheadedness, Denies palp itations, Reports dyspnea on exertion, Denies orthopnea and Denies other Resp Reports cough and Reports dyspnea on exertion GI Denies hematochezia and Denies change in stool character Musc Denies abnormal gait, Denies muscle weakness, Denies numbness, Denies radiating pain into limb and Denies tingling Neuro Denies abnormal gait, Denies dizziness, Denies numbness and Denies tingling Endo Denies fatigue and Denies palpitations Physical Exam Vital Signs: Last Vital Signs Pulse 81 10/07/24 14:32 BP 142/82 H 10/07/24 14:32 Pulse Ox 98 10/07/24 14:32 Oxygen Delivery Method Room Air 10/07/24 14:32 BMI result Body Mass Index 30.4 Const General: cooperative, healthy appearing, comfortable and no acute distress Neck Neck: Yes normal visual inspection Chest Chest palpation & inspection: normal inspection of the chest Resp Effort & Inspection: Actively coughing Quality: productive Auscultation: crackles, no rhonchi, no wheezes and diminished lung sounds Cardio Rate: regular rate Rhythm: regular rhythm Heart sounds: S1 normal heart sound present, S2 normal heart sound present, no gallops, no murmurs and no rubs GI Inspection: Yes normal to inspection Extrem General: Yes normal to inspection and No no pedal edema Psych Appearance: grossly normal Mental Status: mental status grossly normal Assessment & Plan Assessment & Plan (1) Bronchitis: Code(s): J40 - Bronchitis, not specified as acute or chronic Category: Medical (2) ILD (interstitial lung disease): Code(s): J84.9 - Interstitial pulmonary disease, unspecified Category: Medical (3) NSIP (nonspecific interstitial pneumonia): Comment: biopsy-proven. 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 Code(s): J84.89 - Other specified interstitial pulmonary diseases Category: Medical (4) Chronic respiratory failure: Code(s): J96.10 - Chronic respiratory failure, unspecified whether with hypoxia or hypercapnia Category: Medical Qualifiers: Respiratory failure complication: hypoxia Qualified Code(s): J96.11 - Chronic respiratory failure with hypoxia (5) Cough: Code(s): R05.9 - Cough, unspecified Category: Medical Qualifiers: Cough type: chronic Qualified Code(s): R05.3 - Chronic cough (6) Asthma: Code(s): J45.909 - Unspecified asthma, uncomplicated Category: Medical Qualifiers: Asthma severity: moderate Asthma persistence: persistent Asthma complication type: uncomplicated Qualified Code(s): J45.40 - Moderate persistent asthma, uncomplicated (7) Obstructive sleep apnea syndrome: Code(s): G47.33 - Obstructive sleep apnea (adult) (pediatric) Category: Medical Plan continue Ofev 100mg CellCept 1500mg BID start Doxycycline cough medicine Continue oxygen supplementation, 2 L/pulse with activity. The patient needs a POC for better portability outside of the home Pulmonary rehab Short-acting beta agonist as needed Nebulizer therapy BID as needed will F/U with [facility] Gabapentin at night Bloodwork Follow-up in 3-4 months Orders: Orders Immunoglobulin E Today J40 - Bronchitis, not specified as acute or chronic Complete Blood Count Auto Diff Today J40 - Bronchitis, not specified as acute or chronic Scleroderma 70 Antibody Today J40 - Bronchitis, not specified as acute or chronic Sjogren's Antibodies Today J40 - Bronchitis, not specified as acute or chronic Erythrocyte Sedimentation Rate Today J40 - Bronchitis, not specified as acute or chronic Immunoglobulins,IgG IgA IgM Today J40 - Bronchitis, not specified as acute or chronic Angiotensin Converting Enzyme Today J40 - Bronchitis, not specified as acute or chronic RODRIGUEZ Reflex Titer and Pattern Today J40 - Bronchitis, not specified as acute or chronic Medications: New doxycycline hyclate 100 mg PO BID 20 caps 0RF 10 days codeine-guaifenesin 10-100 mg/5 mL 10 mL PO Q6H PRN 300 mL 0RF cough 10 days Coding Level of Care Code Est Pt Level 4 (10387) Complex EM visit Add On G2211 Diagnoses Bronchitis J40 ILD (interstitial lung disease) J84.9 NSIP (nonspecific interstitial pneumonia) J84.89 Chronic respiratory failure with hypoxia J96.11 Respiratory failure complication: hypoxia Chronic cough R05.3 Cough type: chronic Moderate persistent asthma without complication J45.40 Asthma severity: moderate Asthma persistence: persistent Asthma complication type: uncomplicated Obstructive sleep apnea syndrome G47.33 Time Spent (min) 17
== END 2024-10-07 15:02 | disposition home or self-care (01) ==
LOC: HO.HPS 14:16
PROVIDERS: PCP Internal Medicine; Visit Provider Hospitalist
DX: J40 Bronchitis, not specified as acute or chronic (principal); J84.9 Interstitial pulmonary disease, unspecified; J84.89 Other specified interstitial pulmonary diseases; J96.11 Chronic respiratory failure with hypoxia; R05.3 Chronic cough; J45.40 Moderate persistent asthma, uncomplicated; G47.33 Obstructive sleep apnea (adult) (pediatric)
CPT/HCPCS: 99214

== ENCOUNTER 2024-10-07 14:15 | Outpatient (REF) | payer MEDICAID, SELFPAY ==
[2024-10-07 15:29] LABS: MANUAL DIFF FLAG NO
--- OUTSIDE RECORDS SUMMARY | 2024-10-07 15:41 | XMS_ITS | Clinical Summary ---
Author Organization [employer] [facility] Address [address] [place] [address] Care Team Providers Care Excel Specialist Name Role Phone Jocelyn Rivera MD Primary Care Provider [phone] Surgical History Surgery Date Site/Laterality Comments SECTION PROCEDURE: HISTORICAL ; COMMENT: x 3 TUBAL LIGATION PROCEDURE: HISTORICAL TUBAL LIGATION OTHER SURGICAL HISTORY 04/22/2013 PROCEDURE: HI ENDOMETRIAL BX W/WO ENDOCERVIX BX W/O DILAT SPX; COMMENT: Dr Gillette OTHER SURGICAL HISTORY PROCEDURE: HI HYSTEROSCOPY ENDOMETRIAL ABLATION; COMMENT: 05/2014 & 05/2015 Medical History Medical History Date Comments Hypertension 07/15/2018 DX:Hypertension Asthma 07/15/2018 DX:Asthma Anemia 07/15/2018 DX:Anemia Migraines 07/15/2018 DX:Migraines Nephrolithiasis 07/15/2018 DX:Nephrolithias is Hyperlipidemia 07/15/2018 DX:Hyperlipidemi a Hypothyroidism 07/15/2018 DX:Hypothyroidis m Carpal tunnel syndrome 07/15/2018 DX:Carpal tunnel syndrome DM (diabetes mellitus), type 2 with neurological complications (CMS/HCC V24, CMS/HCC V28) 07/15/2018 DX:DM (diabetes mellitus), t ype 2 with neurological complications (HCC) Uterine fibroid 07/15/2018 DX:Uterine fibro id; COMMENT: 07/2015 US Uterine fibroid 3.7 cm adenomyosis Ovarian cyst 07/15/2018 DX:Ovarian cyst; COMMENT: 07/2015 US 2.2 cm Allergic rhinitis 07/15/2018 DX:Allergic rh initis Stress incontinence 07/15/2018 DX:Stress in continence Elevated liver enzymes 07/15/2018 DX:Elevat ed liver enzymes Metabolic syndrome 07/15/2018 DX:Metabolic syndrome Family History Medical History Relation Name Comments Diabetes Father Hypertension, H yperlipidemia, CAD Heart failure Mother Hypertension Relation Name Status Comments Father Mother Social History Tobacco Use Types Packs/Day Years Used Date Smoking Tobacco: Never Smokeless Tobacco: Never Alcohol Use Standard Drinks/Week Comments No 0 (1 standard drink = 0.6 oz pur e alcohol) Comments Unknown Sex and Gender Information Value Date Recorded Sex Assigned at Not on file Legal Sex Female 12:59 AM EST Gender Identity Not on file Sexual Orientation Not on file Obstetrics History Plan of Treatment Health Maintenance Due Date Last Done Comments Breast Cancer Screening 1966 Hepatitis B Vaccines (1 of 3 - 19+ 3-dose series) 1985 Cervical Cancer Screening: P ap Smear 1987 DTaP,Tdap,and Td Vaccines (2 - Td or Tdap) 01/18/2007 01/18/1997 Pneumococcal Vaccine: 50+ Ye ars (1 of 1 - PCV) 2016 Zoster Vaccines (1 of 2) 2016 COVID-19 Vaccine (2023-2 5 season) 2024 Influenza Vaccine (Season Ended) 2025 03/11/20 18 HIB Vaccines Aged Out No longer eligi ble based on patient's age to complete this topic HPV Vaccines Aged Out No longer eligi ble based on patient's age to complete this topic Hepatitis A Vaccines Aged Out No long er eligible based on patient's age to complete this topic IPV Vaccines Aged Out No longer eligi ble based on patient's age to complete this topic MMR Vaccines Aged Out No longer eligi ble based on patient's age to complete this topic Meningococcal ACWY Vaccine Aged Out N o longer eligible based on patient's age to complete this topic Meningococcal B Vaccine Aged Out No l onger eligible based on patient's age to complete this topic Pneumococcal Vaccine: Pediat rics (0 to 5 Years) and At-Risk Patients (6 to 64 Years) Aged Out No longer eligi ble based on patient's age to complete this topic RSV Immunization Patients Un sylvia 20 months Aged Out No longer eligible b ased on patient's age to complete this topic Varicella Vaccines Aged Out No longer eligible based on patient's age to complete this topic Advance Directives Documents on File Type Date Recorded 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
[2024-10-07 17:17] LABS: Basophils Absolute Auto 0.1 X10*3/uL (0.0-0.2); Basophils Percent Auto 0.5 % (0-2); Eosinophils Absolute Auto 0.1 X10*3/uL (0.0-0.4); Eosinophils Percent Auto 0.8 % (0-4); Hemoglobin 13.3 g/dl (12.0-16.0); Imm Gran Abs Auto 0.03 X10*3/uL (0.00-0.03); Imm Gran Pct Auto 0.3 % (0.0-0.4); Red Cell Distribution Width 12.7 % (11.0-16.0); SCAN SMEAR FLAG 1
[2024-10-07 17:19] LABS: Hematocrit 39.6 % (37.0-47.0); Lymphocytes Absolute Auto 2.6 X10*3/uL (1.2-4.9); Mean Corpuscular HGB Conc 33.6 g/dl (31.0-35.0); Mean Corpuscular Hemoglobin 28.5 pg (27.0-33.0); Mean Corpuscular Volume 84.8 fL (80.0-98.0); Mean Platelet Volume 12.8 fL (9.4-12.3); Monocytes Absolute Auto 0.4 X10*3/uL (0.1-1.2); Monocytes Percent Auto 4.3 % (2-11); Neutrophils Absolute Auto 6.7 x10*3/uL (2.0-8.3); Neutrophils Percent Auto 68.1 % (45-73); Platelet Count 190 X10*3/uL (160-400); Red Blood Count 4.67 X10*6/uL (4.20-5.50); White Blood Count 9.8 X10*3/uL (4.8-10.8)
[2024-10-07 17:52] LABS: PLT ABN DIST 1
[2024-10-07 19:20] LABS: Erythrocyte Sedimentation Rate 9 MM/HR (0-20)
[2024-10-08 14:08] LABS: Antibody to SS-A Antigen <1.0 NEG AI (<1.0 NEG); Antibody to SS-B Antigen <1.0 NEG AI (<1.0 NEG); IgA 171 mg/dL (47-310); IgG 801 mg/dL (600-1640); IgM 73 mg/dL (50-300); Scleroderma 70 Antibody <1.0 NEG AI (<1.0 NEG)
[2024-10-08 21:43] LABS: Immunoglobulin E 20 kU/L (<OR=114)
[2024-10-10 08:09] LABS: Angiotensin Converting Enzyme 48.6 U/L (9-67)
[2024-10-11 11:14] LABS: Anti Nuclear Antibody Screen NEGATIVE (NEGATIVE)
== END 2024-10-07 14:16 | disposition home or self-care (01) ==
LOC: HO.LAB 14:15
PROVIDERS: PCP Internal Medicine; Visit Provider Hospitalist
DX: J40 Bronchitis, not specified as acute or chronic (principal); J84.9 Interstitial pulmonary disease, unspecified; J84.89 Other specified interstitial pulmonary diseases; J96.11 Chronic respiratory failure with hypoxia; R05.3 Chronic cough; J45.40 Moderate persistent asthma, uncomplicated; G47.33 Obstructive sleep apnea (adult) (pediatric)
CPT/HCPCS: 36415; 82164; 82784; 82785; 85025; 85652; 86038; 86235; 99212

== ENCOUNTER 2025-01-25 13:45 | Outpatient (AMB) | payer MEDICAID, SELFPAY ==
--- NOTE | 2025-01-25 13:49 | MHC.OFFVIS ---
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 She has been seen in multiple urgent care offices as well as the emergency department for this.? She was treated with 3 courses of prednisone, Tessalon and antibiotics with no improvement. She reports ongoing shortness of breath with exertion as well as coughing fits that are so severe it causes her to vomit and feel like she is going to pass out.? She has no associated chest pain or fevers.? She is a nonsmoker with no history of asthma or COPD.? She also reports that back in April she was having significant joint swelling in her hands and knees. She was evaluated by Rheumatology and awaiting bloodwork.? In the meantime she was noted to be dyspneic with crackles on examination. She was recommended to go to the ED. In the ED she was hypoxic to 84% with activity and CT chest with GGO bilaterally primarily at the bases. Covid testing negative. the patient was admitted to the hospital it was placed on pulse dose Solu-Medrol. Her symptoms improved and she was able to be discharged from the hospital. She did have a bowel extensive workup ruling out lupus, rheumatoid arthritis, HIV, vasculitis, hypersensitivity pneumonitis and also COVID. The blood work did demonstrate a slight eosinophilia bringing up the question of eosinophilic pneumonia. The patient was discharged home off oxygen. She was maintained on high doses of prednisone with a slow taper. Currently she is on 40 mg of prednisone tapering down by 10 mg every 5 days. she continues to have dyspnea on exertion. We did have her go for 6 minute walk testing the patient did qualify for oxygen becoming dyspneic and hypoxic. The patient will need oxygen supplementation with activity at this time. In the meantime explained to the patient that based on her CT scan in order to know definitively the etiology of her interstitial lung disease she would require a lung biopsy. However, the fact that she is on prednisone may actually decrease the yield of a biopsy at this time. It also will affect her healing process. Therefore, will taper her prednisone slowly until she is off and will repeat the CT scan to see if she has any residual findings. If she does have residual findings in the still a clear etiology has not been found for the interstitial lung disease then a biopsy will be warranted. 11/01/2022 patient is here for pulmonary follow-up visit. The patient overall has been doing relatively well. She did not tolerate the full does mycophenolate due to GI adverse effects. Therefore she continued with 3 capsules in the morning and 2 capsules at nighttime. She continues use her oxygen with good effect. She did follow-up in [place] and did not have any medication changes. She did have blood work done. She has been having constitutional symptoms including dizziness, lightheadedness and also has been having some issues with BP elevation. Therefore will go ahead and request additional blood work. 03/28/2023 the patient is here for pulmonary follow-up visit. Since we last saw evaluate her she has had significant GI adverse effects. Partly due to the combination of the all 5 and the mycophenolate. She has been having a lot of vomiting and does not tolerate all the foods. She continues to lose weight. Her primary care doctor had ordered blood work and demonstrated significant abnormalities with a potassium the magnesium and phosphorus. I did send her repeat placement therapies. The patient also gets very nauseous therefore Zofran may be helpful in minimizing the symptoms. In the meantime I did send her the lower dose all 5 of 100 that she can try for a month and also she will take a break this we can overall. In addition to that the mycophenolate will decrease down to 2 tablets in the morning and 1 at night and then hopefully she if she feels better she can increase it to 2 in the morning and 2 at nighttime. She does have a follow-up with her specialist in [place] coming up. Not sure she is going to have additional imaging at that time. Otherwise will do imaging around here. She continues use oxygen with activity with good effect. Overall the respiratory condition has been stable with current medications. 05/09/2023 The patient is here for pulmonary follow-up visit. The patient is doing much better from the GI side effects. She is tolerating the lower dose Ofev 100 mg. she was also able to slowly increase the mycophenolate to 3 g a day. Her electrolytes are now normalized which is reassuring. The patient continues to have shortness of breath and dyspnea due to her interstitial lung disease. She does have oxygen supplementation available. The oxygen is beneficial ineffective for her. She does have a follow-up in [place] coming up in the springtime at which time she will undergo a CT scan of the chest. I am hopeful that her disease state is normalized and also hopeful that she can tolerate a lower dose of mycophenolate if it is appropriate. Recently, started developing URI symptoms. +sick contact. 10/17/2023 the patient is here for a pulmonary follow-up visit. Overall the patient has been doing a little better from a GI standpoint. She has been tolerating the lower dose Ofev. She has also been tolerating the mycophenolate 2 g a day. Recently she did get sick as after she was exposed to powder in her room. She started developing worsening cough chest congestion also sinusitis. She has been having hard time breathing through her nose. She has been having to use her oxygen more regularly. She does have a productive cough with green sputum. This has been the case for the last week. Does not seem to be getting any better. She does have a follow-up in [place] coming up in the next few weeks. She is scheduled to undergo PFTs and a CT scan of the chest. Therefore, will go ahead and treat her for lower respiratory infection she is congested. Will hold off on any prednisone at this time. If the patient does not improve she can call me early next week and I will send her a course of prednisone. 04/22/2024 the patient is here for a pulmonary follow-up visit. The patient has been sick now for about a week. Positive sick contacts in the family. Started developing a could congested cough. Flow phlegm is clear. Denies any chest pain. Although she does have chest tightness and wheezing. She has not been using the nebulizer. The patient has been using the oxygen more regularly. On examination she does not have any significant wheezing or rhonchi. Will go ahead and start her on some antibiotics for lower respiratory infection specially with immunocompromised state also will go ahead and provide her with ampules for her nebulizer for her to be able to do that at least twice a day to provide CPT mucus clearance and bronchodilation. Inpatient can use cough medication at nighttime decided on the coughing be able to sleep. If her symptoms do not improve she can always call for further evaluation. Will try to hold off on giving her prednisone at this time although if she does have a worsening chest tightness and wheezing she can call and I can send a prescription. The patient is going to follow-up in [place] May to get another CT scan and also to consider a change in her regimen if necessary. will follow-up sometime in the springtime if any issues arise she will call for an earlier assessment 10/07/2024 the patient is here for pulmonary follow-up visit. Overall she is doing fair. She started developing worsening cough the last few days. Is keeping her up at nighttime moderate severity. She also has been using the oxygen little bit more often. She continues on the mycophenolate 3 g a day in addition to taking the Ofev 100 mg twice a day. Seems to be tolerating this regimen well. She did have a CT scan in [place] in addition to a PFT. I do not have those results. There was discussion about switching over to Rituxan to see if we can get a maximum affect improvement overall. However, the patient is really reluctant since she she has been stable on the current regimen and is worried that she could develop worsening adverse effects from the stronger immunosuppressant therapy her therefore is unlikely that she is going to go ahead and start the Rituxan. She will continue with current regimen. The patient will go ahead and follow-up in [place]. She can always just follow-up with us and we can follow the blood work PFTs and CAT scans here and if there is any worsening of disease we can send her back to [place]. She will think about that otherwise she will follow-up with us in 3-4 months and she will get blood work to make sure she is tolerating her medicine. 01/25/2025 the patient is here for pulmonary follow-up visit. Overall she is doing well. She did follow-up in [place] at the [facility] clinic in the recommendation is to continue the course with the mycophenolate in the Ofev. There is a question of dermatomyositis but no evidence of any active disease at this time. Therefore the Rituxan is on hold. She is going to have additional testing when she goes back in May. In the meantime she did have PFTs demonstrating a decreasing the DLCO which appears to be stable. This could be related to under lying fibrotic disease. No evidence of any anemia. In addition to that need to consider pulmonary hypertension. Her last echocardiogram that we have on record from 2022 demonstrated slight decrease in the RV function. In the future if she continues to be decreasing DLCO should have a repeat echocardiogram. She does have the oxygen she does use it with good effect. She continues on the medication she sees seems to be tolerating it well. Will follow-up in the springtime if he has any issues prior to this she will call for an earlier assessment. [facility] Medical History (Updated 04/22/24 @ 20:37 by Minesh Randall MD) Asthma Chronic respiratory failure NSIP (nonspecific interstitial pneumonia) ILD (interstitial lung disease) Cough Acute respiratory failure Pneumonitis Hypothyroid Diabetes HTN (hypertension) Surgical History History of lung surgery (~2021) History of partial mastectomy of right breast (~2018) History of lithotripsy (~2005) History of colonoscopy (~2017) History of tubal ligation (~1995) History of Family History Father Cardiomyopathy Mother No problems noted. Social History Household Members: Children Housing: House Do you presently have visiting nurse or other home services: No Alcohol intake: never Patient Tobacco Use Status: Never used Tobacco Second Hand Smoke Exposure: No service: No Current occupational status: retired Review of Systems Const Denies chills, Denies fatigue, Denies fever(s), Denies weight gain and Denies weight loss ENT Denies dizziness Card Denies chest pain, Denies leg edema, Denies lightheadedness, Denies palpitations, Reports dyspnea on exertion, Denies orthopnea and Denies other Resp Reports cough and Reports dyspnea on exertion GI Denies hematochezia and Denies change in stool character Musc Denies abnormal gait, Denies muscle weakness, Denies numbness, Denies radiating pain into limb and Denies tingling Neuro Denies abnormal gait, Denies dizziness, Denies numbness and Denies tingling Endo Denies fatigue and Denies palpitations Physical Exam Vital Signs: Last Vital Signs Pulse 70 01/25/25 13:50 BP 148/92 H 01/25/25 13:50 Pulse Ox 97 01/25/25 13:50 Oxygen Delivery Method Room Air 01/25/25 13:50 BMI result Body Mass Index 30.2 Const General: cooperative, healthy appearing, comfortable and no acute distress Neck Neck: Yes normal visual inspection Chest Chest palpation & inspection: normal inspection of the chest Resp Effort & Inspection: Actively coughing Quality: productive Auscultation: no rhonchi, no wheezes and diminished lung sounds Cardio Rate: regular rate Rhythm: regular rhythm Heart sounds: S1 normal heart sound present, S2 normal heart sound present, no gallops, no murmurs and no rubs GI Inspection: Yes normal to inspection Extrem General: Yes normal to inspection and No no pedal edema Psych Appearance: grossly normal Mental Status: mental status grossly normal Assessment & Plan Assessment & Plan (1) ILD (interstitial lung disease): Code(s): J84.9 - Interstitial pulmonary disease, unspecified Category: Medical (2) NSIP (nonspecific interstitial pneumonia): Comment: biopsy-proven. 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 Code(s): J84.89 - Other specified interstitial pulmonary diseases Category: Medical (3) Chronic respiratory failure: Code(s): J96.10 - Chronic respiratory failure, unspecified whether with hypoxia or hypercapnia Category: Medical Qualifiers: Respiratory failure complication: hypoxia Qualified Code(s): J96.11 - Chronic respiratory failure with hypoxia (4) Cough: Code(s): R05.9 - Cough, unspecified Category: Medical Qualifiers: Cough type: chronic Qualified Code(s): R05.3 - Chronic cough (5) Asthma: Code(s): J45.909 - Unspecified asthma, uncomplicated Category: Medical Qualifiers: Asthma complication type: uncomplicated Asthma persistence: persistent Asthma severity: moderate Qualified Code(s): J45.40 - Moderate persistent asthma, uncomplicated (6) Obstructive sleep apnea syndrome: Code(s): G47.33 - Obstructive sleep apnea (adult) (pediatric) Category: Medical Plan continue Ofev 100mg CellCept 1500mg BID Continue oxygen supplementation, 2 L/pulse with activity. The patient needs a POC for better portability outside of the home Pulmonary rehab Short-acting beta agonist as needed Nebulizer therapy BID as needed will F/U with [facility] ILD clinic Gabapentin at night consider ECHO Follow-up in 6-8 months Coding Level of Care Code Est Pt Level 4 (83063) Complex EM visit Add On G2211 Diagnoses ILD (interstitial lung disease) J84.9 NSIP (nonspecific interstitial pneumonia) J84.89 Chronic respiratory failure with hypoxia J96.11 Respiratory failure complication: hypoxia Chronic cough R05.3 Cough type: chronic Moderate persistent asthma without complication J45.40 Asthma complication type: uncomplicated Asthma persistence: persistent Asthma severity: moderate Obstructive sleep apnea syndrome G47.33 Time Spent (min) 17
[2025-01-25 13:50] VITALS: BP 148/92; PULSE 70; O2SAT 97; BMI 30.2
--- OUTSIDE RECORDS SUMMARY | 2025-01-25 14:41 | XMS_ITS | Clinical Summary ---
Author Organization [facility] Address [address] [place] [address] Care Team Providers Care Sawmill Manager Name Role Phone Jocelyn Rivera MD Primary Care Provider [phone] Surgical History Surgery Date Site/Laterality Comments SECTION PROCEDURE: HISTORICAL ; COMMENT: x 3 TUBAL LIGATION PROCEDURE: HISTORICAL TUBAL LIGATION OTHER SURGICAL HISTORY 04/22/2013 PROCEDURE: [place] ENDOMETRIAL BX W/WO ENDOCERVIX BX W/O DILAT SPX; COMMENT: Dr Gillette OTHER SURGICAL HISTORY PROCEDURE: [place] HYSTEROSCOPY ENDOMETRIAL ABLATION; COMMENT: 05/2014 & 05/2015 [...] Vaccines (1 of 2) 2016 COVID-19 Vaccine ( - 2023-2 5 season) 2024 Depression Screening 06/02/2024 Influenza Vaccine (#1) 2025 03/11/2018 HIB Vaccines Aged Out No longer eligi [...] Documents on File Type Date Recorded 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
--- OUTSIDE RECORDS SUMMARY | 2025-01-25 14:41 | XMS_ITS | Clinical Summary ---
Author Organization [facility] Address [address] [place] [id number] Phone Care Team Providers Care Strap Making Machine Operator Name Role Phone Jocelyn Rivera MD Primary Care Provider Social History Tobacco Use Types Packs/Day Years Used Date Smoking Tobacco: Never Assessed Education Answer Date Recorded Are you interested in more education? Not on alexys e 09/28/2022 Are you concerned about learning? Not on file 09/28/2022 No 09/28/2022 No 09/28/2022 Digital Access Answer Date Recorded No 10/29/2022 No 10/29/2022 Reliable internet access at home? Not on file 10/29/2022 Device with a working camera? Not on file Comments Unknown Sex and Gender Information Value Date Recorded Sex Assigned at Not on file Legal Sex Female 11:16 AM EST Gender Identity Not on file Sexual Orientation Not on file Plan of Treatment Not on file Medical Devices Not on file Insurance [facility] [employer] PLANS [employer] DIRECT [employer] DIRECT [employer] [place] [address] [place] [address] [place] [address] [place] [address] [place] [address] [facility] [employer] DIRECT [facility] [employer] DIRECT Care Teams Strap Making Machine Operator Relationship Specialty Start Date End Date Jocelyn Rivera MD [address] [place] [address] [place] [address] PCP - General Internal Medicine 07/12/21 Additional Source Comments The information contained in this document represents components of the legal health record. It is not the complete legal health record.[facility]
== END 2025-01-25 14:33 | disposition home or self-care (01) ==
LOC: HO.HPS 13:45
PROVIDERS: PCP Internal Medicine; Visit Provider Hospitalist
DX: J84.9 Interstitial pulmonary disease, unspecified (principal); J84.89 Other specified interstitial pulmonary diseases; J96.11 Chronic respiratory failure with hypoxia; R05.3 Chronic cough; J45.40 Moderate persistent asthma, uncomplicated; G47.33 Obstructive sleep apnea (adult) (pediatric)
CPT/HCPCS: 99214

== ENCOUNTER → 2025-01-25 13:45 | Outpatient (BNVA) | payer MEDICAID, SELFPAY | PROVIDERS: PCP Internal Medicine; Visit Provider Hospitalist | DX: J96.11 Chronic respiratory failure with hypoxia (principal); J84.9 Interstitial pulmonary disease, unspecified; J84.89 Other specified interstitial pulmonary diseases; J45.40 Moderate persistent asthma, uncomplicated; G47.33 Obstructive sleep apnea (adult) (pediatric) | CPT/HCPCS: 99212 ==

== ENCOUNTER 2025-03-21 08:52 | Outpatient (REF) | payer MEDICAID, SELFPAY ==
[2025-03-21 10:12] LABS: Parathyroid Hormone Intact 249.3 pg/mL (8.7-77.1)
[2025-03-21 10:21] LABS: Alanine Aminotransferase 17 U/L (0-31); Albumin Level 4.0 g/dL (3.5-5.0); Alkaline Phosphatase 86 U/L (39-117); Anion Gap 13 (12-20); Aspartate Amino Transferase 24 U/L (5-31); Blood Urea Nitrogen 11 mg/dL (9-16); Calcium 10.5 mg/dL (8.4-10.2); Carbon Dioxide 27 mmol/L (22-29); Chloride 103 mmol/L (96-108); Cholesterol 122 mg/dL (<200); Estimated Glomerular Filt Rate > 60; HDL Cholesterol 42 mg/dL (>40); Potassium 3.4 mmol/L (3.3-5.1); Sodium 140 mmol/L (135-145); Total Protein 6.3 g/dL (6.5-8.0); Triglycerides 161 mg/dL (<150)
[2025-03-21 10:27] LABS: Thyroid Stimulating Hormone 2.49 uIU/mL (0.32-4.0)
[2025-03-21 10:53] LABS: Microalbum/Creatinine Ratio Ur 226.6 ug/mg cr (<30)
== END 2025-03-21 08:53 | disposition home or self-care (01) ==
LOC: HO.LAB 08:52
PROVIDERS: PCP Internal Medicine; Visit Provider Internal Medicine
DX: E21.0 Primary hyperparathyroidism (principal); E11.9 Type 2 diabetes mellitus without complications; E03.9 Hypothyroidism, unspecified; E78.00 Pure hypercholesterolemia, unspecified
CPT/HCPCS: 36415; 80053; 80061; 82043; 82570; 83036; 83970; 84443